=== PATIENT | female | born 1965 | race Two or more races ===

== ENCOUNTER 2020-09-24 08:38 | Emergency (ER) | payer OTHER, SELFPAY ==
[2020-09-24 08:57] VITALS: BP 149/74; PULSE 68; RESP 16; TEMP 36.6; O2SAT 96; BMI 38.7
--- NOTE | 2020-09-24 09:20 | CT_ITS ---
EXAMINATION: CT HEAD WITHOUT CONTRAST CLINICAL INFORMATION: Dizziness, nausea and vomiting, headache and neck pain COMPARISON: Previous head CT and brain MRI August 2015 TECHNIQUE: Contiguous axial imaging was performed from the skull base to vertex without intravenous administration of contrast. This CT examination was performed using dose optimization techniques as appropriate, variously including the following: *Automated exposure control *Adjustment of mA and/or kV according to patient size (this includes techniques or standardized protocols for targeted exams where dose is matched to indication/reason for exam; i.e. extremities or head) *Use of iterative reconstruction technique DLP: 606 mGy-cm FINDINGS: There is no evidence of acute intracranial hemorrhage or territorial infarction. No abnormal mass effect or midline shift is seen. Morillo to white matter differentiation is well preserved. No extra-axial fluid collections are identified. The ventricles are normal in size. There is no abnormal attenuation within the brain parenchyma. The osseous structures and soft tissues are normal. The mastoid air cells and visualized portions of the paranasal sinuses are well aerated. CT/CT head/brain wo con IMPRESSION: Unremarkable exam.
--- NOTE | 2020-09-24 09:20 | XR_ITS ---
EXAMINATION: XR CHEST CLINICAL INFORMATION: Dizziness, nausea and vomiting, headache and neck pain COMPARISON: None TECHNIQUE: 2 views of the chest were obtained. FINDINGS: The cardiac and mediastinal contours are normal. The lungs are clear. There is no pleural effusion or pneumothorax. There are degenerative changes of the spine. XR/XR chest 2V IMPRESSION: No evidence for acute disease in the chest.
--- NOTE | 2020-09-24 09:20 | ECG_ITS ---
Test Reason : HEADACHE Blood Pressure : / mmHG Vent. Rate : 059 BPM Atrial Rate : 059 BPM P-R Int : 150 ms QRS Dur : 084 ms QT Int : 426 ms P-R-T Axes : 039 011 046 degrees QTc Int : 421 ms Sinus bradycardia Otherwise normal ECG When compared with ECG of 24-SEP-2017 07:47, No significant change was found Referred By: Pattie Monge Electronically Signed By:RODRI AGUILAR MD
--- NOTE | 2020-09-24 09:29 | ED.HA ---
HPI - Headache General Chief Complaint: General Medical Stated Complaint: headache & neck pain, vomiting Time Seen by Provider: 09/24/20 08:58 Source: patient Mode of arrival: ambulatory Limitations: no limitations History of Present Illness HPI Narrative: 54yoF c No Sig PMHx presenting to the ED c c/o of a headache pressure sensation to right/top side of her head since Tuesday Worse today. With associated dizziness every time she changes position, nausea/vomiting and neck pain. Patient reports it is worse with light, noise and everything. Patient reports nothing improves the pain. Patient reports she has taken [id number] Motrin and no symptomatic relief. Patient reports she had a migraine headache approximately 2 years ago with associated nausea/vomiting although today the headache is worse not similar when she had that headache 2 years ago. Patient reports her niece and another family member told her that on Tuesday she called them and left them weird voice mail saying that something was wrong and that they had to come over right away and they do not live close. She reports she does not recall this. Patient denies recent head injury, known CO exposure, tick bite, recent spinal/epidural procedure, new medication or recent URI. Denies any other associated symptoms complaints or concerns at this time. Related Data Previous Rx's Medication Instructions Recorded meloxicam 15 mg tablet 15 mg PO DAILY #30 tab 09/18/20 [id number]-satffwltgfxom-cxzf 1 cap PO Q8H PRN #10 cap 09/24/20 [Fioricet] diphenhydramine HCl [Benadryl 25 mg PO Q6H PRN #10 tab 09/24/20 Allergy] levofloxacin 750 mg PO DAILY 5 Days #5 tab 09/24/20 metoclopramide HCl [Reglan] 10 mg PO Q6H PRN #10 tab 09/24/20 Allergies Allergy/AdvReac Type Severity Reaction Status Date / Time Penicillins [PENICILLINS] Allergy Unknown UNKNOWN Verified 09/24/20 09:02 Review of Systems Review of Systems: Constitutional : No Fever, No Chills, No Night Sweats, No Fatigue, No Malaise ENT/Mouth : No Hearing loss, No Ear Pain, No Nasal Congestion, No Sinus Pain, No Hoarseness, No sore throat, No Rhinorrhea Eyes: No Eye Pain, No Swelling, No Redness, No Foreign Body, No Discharge, No Vision Changes Cardiovascular : No Chest Pain, No SOB, No Dyspnea on Exertion, No Orthopnea, No Edema, No Palpitations Respiratory : No Cough, No Sputum, No Wheezing, No Smoke Exposure, No Dyspnea Gastrointestinal : + Nausea, + Vomiting, No Diarrhea, No Constipation, No abdominal Pain, No Hematochezia, No Melena Genitourinary : no irregular bleeding, No Dysuria, No Urinary Frequency, No Hematuria, No Urinary Incontinence, No Urgency, No Flank Pain, No Urinary Flow Changes, No Hesitancy Musculoskeletal : No joint pain, No Myalgias, No Joint Swelling Skin : No Skin Lesions, No rash Neuro : + Dizziness, + Headache, No Weakness, No Numbness, No Paresthesias, No Loss of Consciousness, no syncope, Psych : No Anxiety/Panic, No Depression, No SI/HI/AH/VH, No Social Issues, Heme/Lymph: No Bruising, No Bleeding,No Lymphadenopathy Endocrine : No Polyuria, No Polydipsia, No Temperature Intolerance Denies trauma. Yes all other systems are reviewed and are negative [facility] Social History Social History Advance Directives: No Advance Directives Information Provided: Yes Physical Exam Vital Signs: Vital Signs: Vital Signs Temp Pulse Resp BP Pulse Ox 09/24/20 11:38 62 14 134/70 99 09/24/20 08:57 97.9 F 68 16 149/74 H 96 Body Mass Index 38.7 Vital signs have been reviewed as normal and appeared to be correct. Blood pressure normal. Heart rate normal. Respiration rate normal. Temperature normal. Oxygen saturation normal. Appearance: Alert. Oriented X3. No acute distress. Head: Normal external exam. Normocephalic. Atraumatic. Able to rotate head bilaterally. Eyes: PERRLA. EOMI. No nystagmus noted. Conjunctiva and sclera normal. Eyelids normal. Corneal reflex normal. ENT: EAC normal. TM's Normal. Hearing normal. Pharynx normal. Uvula midline. tongue midline. Moist mucous membranes. No trismus noted. No drooling noted. No muffled voice noted. Neck: Normal inspection. Neck supple. FROM. No adenopathy. Thyroid Normal. No meningeal signs. No neck mass noted.TTP of b/l paracervical musculature. No midcervical tenderness step-offs or deformities noted. Patient neuro intact bilaterally in this and all 4 extremities. Reflexes intact bilateral and this in all 4 extremities. No rashes/lesions/induration/fluctuance or signs of infection noted. Patient has a normal steady gait. CVS: Normal heart rate and rhythm. Heart sound normal. No murmurs noted. Pulses normal throughout. Respiratory: No respiratory distress. Painless inspiration. Breath sounds normal. No wheezes/rales/rhonchi noted. Chest nontender. No accessory muscle usage noted or decreased air movement noted. Abdomen: Soft and nontender. Bowel sounds normal in all 4 quadrants. No distention noted. No organomegaly noted. No visible injury noted. Back: No CVA tenderness. Full range of motion noted. Skin: Skin warm and dry. Normal skin color. Normal skin turgor. No rashes/lesions/lacerations noted. Extremities: No lower extremity edema. Extremities exhibit normal range of motion. Extremities nontender. Able to shrug shoulders bilaterally and keep up against resistance. Neuro: Oriented X 3. No motor deficit. No sensory deficit. Reflexes normal. Moving all extremities. No focal motor deficits. Cranial nerves II-XI intact bilaterally. Facial strength normal. Normal cognition. Speech normal. Gait normal. Strength 5/5 throughout. No pronator drift. No tremor noted. No fasciculations noted. Muscle tone normal throughout. No asterixis noted. Gcfgga-yh-bpwo test normal. Heel to mckeon test normal. Tandem gait normal. Does not sway with eyes open. Romberg test negative. Rapid alternating movement upper extremity normal. Rapid alternating movement lower extremity normal. Hand drop from overhead-Mrs. face. No rigidity noted. NIHSS score 0. Course Course Course Narrative: 9:20AM 54yoF presenting to the ED c c/o headache to right/ytop side of head pressure sensation c associated dizziness, N/V. Worsened by everything. Relieved by nothing. Prior headache in past and reports today the headache is worse. -on exam patient is alert and oriented x3. No acute neuro deficits noted. Vital signs are stable within normal limits. - Concern for CVA vs Migraine headache. - Plan: Labs, CT scan of brain, EKG, CXR, orthostatic vitals. Provide symptomatic tx c IV fluids, 10 mg of decadron, 10 mg of reglan, 2 PO Fioricet and re-evaluate. Reevaluation(s) Reevaluation #1: Patient's labs are within normal limits. EKG sinus bradycardia no acute ischemic changes and similar when compared to prior. Chest x-ray within normal limits no acute processes noted. CT scan of brain within normal limits no acute processes noted. UA patient appears to have a UTI therefore will DC home with antibiotics. Patient reports her headache is almost completely resolved at this time after the medications given. Will DC home with symptomatic treatment for her headache as well. Along with instructions follow-up with primary care provider. Patient understands agrees the plan. Time: 12:35 MDM - Headache MDM Narrative Medical decision making narrative: gradual onset ANDRE with photo/phonophobia, nausea. Mot likely Migraine headache althought pt reports not similar to prior migraine headache 2 years ago. SAH: unlikely given gradual onset. Intracranial bleed: unlikely given neg trauma, neg anticoagulation Meningitis: unlikely given pt afebrile, neg stiff neck, no immune compromise. Exam without signs of meningismus Temporal arteritis: Unlikely given Neg jaw claudication, no temporal tenderness or nodularity on exam. Cerebral venous thrombosis: unlikely given no h/o hypercoaguable state, no chronic head/neck infection. Medical Records Attestation: I reviewed the patient's medical records. Lab Data Attestation: I reviewed the patient's lab results. Result diagrams: 09/24/20 09:34 09/24/20 09:34 Labs: Lab Results 09/24/20 09/24/20 09/24/20 Range/Units 09:34 09:34 09:34 WBC 3.3 L (4.8-10.8) X10*3/uL RBC 4.83 (4.20-5.50) X10*6/uL Hgb 14.8 (12.0-16.0) g/dl Hct 45.3 (37-47) % MCV 93.8 (80-98) fL MCH 30.6 (27.0-33.0) pg MCHC 32.7 (31.0-35.0) g/dl RDW 12.4 (11.0-16.0) % Plt Count 201 (160-400) X10*3/uL MPV 10.9 (9.4-12.3) fL Immature Gran % (Auto) 0.9 H (0.0-0.4) % Neut % (Auto) 64.2 (45-73) % Lymph % (Auto) 23.9 (20-40) % Preble % (Auto) 10.4 (2-11) % Eos % (Auto) 0.3 (0-4) % Baso % (Auto) 0.3 (0-2) % Lymph # (Auto) 0.8 L (1.2-4.9) X10*3/uL Preble # (Auto) 0.3 (0.1-1.2) X10*3/uL Eos # (Auto) 0.0 (0.0-0.4) X10*3/uL Baso # (Auto) 0.0 (0.0-0.2) X10*3/uL Abs Immat Gran (auto) 0.03 (0.00-0.03) X10*3/uL Absolute Neuts (auto) 2.1 (2.0-8.3) X10*3/uL Absolute Nucleated RBC 0.000 (0.0-0.012) X10*3/uL Nucleated RBC % (auto) 0.0 (0.0-0.2) /100WBC PT 12.4 (10.8-13.0) SEC INR 1.0 (0.9-1.1) Sodium 139 (135-145) mmol/L Potassium 3.6 (3.3-5.1) mmol/l Chloride 103 (96-108) mmol/L Carbon Dioxide 27 (22-29) mmol/L Anion Gap 13 (12-20) BUN 8 L (9-16) mg/dL Creatinine 0.62 (0.5-1.4) mg/dL Estim Creat Clear Calc 101.1 Estimated GFR > 60 Random Glucose 117 H (60-115) mg/dL Calcium 8.1 L (8.4-10.2) mg/dL Magnesium 2.0 (1.6-2.6) mg/dL Total Bilirubin 0.5 (0.0-1.0) mg/dL Direct Bilirubin 0.3 (0.0-0.5) mg/dL AST 37 H (5-31) U/L ALT 36 H (0-31) U/L Alkaline Phosphatase 94 (39-117) U/L Troponin I High Sens (<3.5-17.0) ng/L C-Reactive Protein 0.17 (< or = 0.50) mg/dL Total Protein 6.8 (6.5-8.0) g/dL Albumin 4.0 (3.5-5.0) g/dL Urine Color Urine Appearance Urine pH (5.0-8.0) Ur Specific [place] (1.005-1.025) Urine Protein (NEG-TRACE) MG/DL Urine Glucose (UA) (NEG) MG/DL Urine Ketones (NEG) MG/DL Urine Blood (NEG) Urine Nitrite (NEG) Ur Leukocyte Esterase (NEG) Urine RBC (0) /HPF Urine WBC (0-4) /HPF Ur Squamous Epith Cells /LPF Urine Bacteria /LPF Ethyl Alcohol mg/dL 09/24/20 09/24/20 09/24/20 Range/Units 09:34 09:49 11:07 WBC (4.8-10.8) X10*3/uL RBC (4.20-5.50) X10*6/uL Hgb (12.0-16.0) g/dl Hct (37-47) % MCV (80-98) fL MCH (27.0-33.0) pg MCHC (31.0-35.0) g/dl RDW (11.0-16.0) % Plt Count (160-400) X10*3/uL MPV (9.4-12.3) fL Immature Gran % (Auto) (0.0-0.4) % Neut % (Auto) (45-73) % Lymph % (Auto) (20-40) % Preble % (Auto) (2-11) % Eos % (Auto) (0-4) % Baso % (Auto) (0-2) % Lymph # (Auto) (1.2-4.9) X10*3/uL Preble # (Auto) (0.1-1.2) X10*3/uL Eos # (Auto) (0.0-0.4) X10*3/uL Baso # (Auto) (0.0-0.2) X10*3/uL Abs Immat Gran (auto) (0.00-0.03) X10*3/uL Absolute Neuts (auto) (2.0-8.3) X10*3/uL Absolute Nucleated RBC (0.0-0.012) X10*3/uL Nucleated RBC % (auto) (0.0-0.2) /100WBC PT (10.8-13.0) SEC INR (0.9-1.1) Sodium (135-145) mmol/L Potassium (3.3-5.1) mmol/l Chloride (96-108) mmol/L Carbon Dioxide (22-29) mmol/L Anion Gap (12-20) BUN (9-16) mg/dL Creatinine (0.5-1.4) mg/dL Estim Creat Clear Calc Estimated GFR Random Glucose (60-115) mg/dL Calcium (8.4-10.2) mg/dL Magnesium (1.6-2.6) mg/dL Total Bilirubin (0.0-1.0) mg/dL Direct Bilirubin (0.0-0.5) mg/dL AST (5-31) U/L ALT (0-31) U/L Alkaline Phosphatase (39-117) U/L Troponin I High Sens < 3.5 (<3.5-17.0) ng/L C-Reactive Protein (< or = 0.50) mg/dL Total Protein (6.5-8.0) g/dL Albumin (3.5-5.0) g/dL Urine Color YELLOW Urine Appearance HAZY Urine pH 6.0 (5.0-8.0) Ur Specific [place] <= 1.005 (1.005-1.025) Urine Protein NEG (NEG-TRACE) MG/DL Urine Glucose (UA) NEG (NEG) MG/DL Urine Ketones NEG (NEG) MG/DL Urine Blood NEG (NEG) Urine Nitrite NEG (NEG) Ur Leukocyte Esterase TRACE H (NEG) Urine RBC 1-4 (0) /HPF Urine WBC 15-29 H (0-4) /HPF Ur Squamous Epith Cells 2+ /LPF Urine Bacteria NONE /LPF Ethyl Alcohol < 10 mg/dL Imaging Data Chest x-ray: Attestation: I personally reviewed and interpreted this imaging study as follows: Radiologist's impression: FINDINGS: The cardiac and mediastinal contours are normal. The lungs are clear. There is no pleural effusion or pneumothorax. There are degenerative changes of the spine. XR/XR chest 2V IMPRESSION: No evidence for acute disease in the chest. CT scan - head: Attestation: I personally reviewed and interpreted this imaging study as follows: Radiologist's impression: FINDINGS: There is no evidence of acute intracranial hemorrhage or territorial infarction. No abnormal mass effect or midline shift is seen. Morillo to white matter differentiation is well preserved. No extra-axial fluid collections are identified. The ventricles are normal in size. There is no abnormal attenuation within the brain parenchyma. The osseous structures and soft tissues are normal. The mastoid air cells and visualized portions of the paranasal sinuses are well aerated. CT/CT head/brain wo con IMPRESSION: Unremarkable exam. ECG Data Attestation: I personally reviewed and interpreted this ECG as follows: ECG interpretation date: 09/24/20 ECG interpretation time: 09:34 Interpretation: Sinus bradycardia with a ventricular rate of 59 with normal ME interval normal QRS. Normal QT/QTC duration. No acute ischemic changes. Similar compared to prior 09/24/2017. Critical Care Time Critical Care Time Critical Care Time: Yes Total Critical Care Time: 60 Attestation: I personally attest to this time spent taking care of the patient Discharge Plan Discharge Clinical Impression: Migraine, Neck muscle spasm, UTI (urinary tract infection) Patient Disposition: Home, Self-Care Instructions: Urinary Tract Infection in Women (ED), Migraine Headache (ED) Prescriptions: New metoclopramide HCl [Reglan] 10 mg tablet 10 mg PO Q6H PRN (Reason: nausea and vomiting) Qty: 10 RF: 0 [id number]-cpruuwrtrfqke-tzcu [Fioricet] 50-300-40 mg capsule 1 cap PO Q8H PRN (Reason: pain) Qty: 10 RF: 0 diphenhydramine HCl [Benadryl Allergy] 25 mg tablet 25 mg PO Q6H PRN (Reason: nausea and vomiting) Qty: 10 RF: 0 levofloxacin 750 mg tablet 750 mg PO DAILY 5 Days Qty: 5 RF: 0 No Action meloxicam 15 mg tablet 15 mg PO DAILY Qty: 30 RF: 1 Referrals: Olga Mckeon MD [Primary Care Provider] - 2 days Print Language: Citizen Of [place]
[2020-09-24] MEDS: 0.9 % Sodium Chloride 1,000 ML 999 ML IVCONT (09:34)
[2020-09-24] MEDS: diphenhydrAMINE HCL 50 MG/ML VIAL IVPUSH (09:41)
[2020-09-24] MEDS: dexAMETHasone sod phosphate 4 MG/ML VIAL 10 MG IVPUSH (09:43)
[2020-09-24] MEDS: Metoclopramide HCl 10 MG/2 ML VIAL IVPUSH (09:51)
[2020-09-24 09:59] LABS: MANUAL DIFF FLAG NO
[2020-09-24 10:01] LABS: Basophils Percent Auto 0.3 % (0-2); Eosinophils Percent Auto 0.3 % (0-4); Hematocrit 45.3 % (37-47); Hemoglobin 14.8 g/dl (12.0-16.0); Imm Gran Abs Auto 0.03 X10*3/uL (0.00-0.03); Imm Gran Pct Auto 0.9 % (0.0-0.4); Lymphocytes Absolute Auto 0.8 X10*3/uL (1.2-4.9); Lymphocytes Percent Auto 23.9 % (20-40); Mean Corpuscular HGB Conc 32.7 g/dl (31.0-35.0); Mean Corpuscular Hemoglobin 30.6 pg (27.0-33.0); Mean Corpuscular Volume 93.8 fL (80-98); Mean Platelet Volume 10.9 fL (9.4-12.3); Monocytes Absolute Auto 0.3 X10*3/uL (0.1-1.2); Monocytes Percent Auto 10.4 % (2-11); Neutrophils Absolute Auto 2.1 X10*3/uL (2.0-8.3); Neutrophils Percent Auto 64.2 % (45-73); Platelet Count 201 X10*3/uL (160-400); Red Blood Count 4.83 X10*6/uL (4.20-5.50); Red Cell Distribution Width 12.4 % (11.0-16.0); White Blood Count 3.3 X10*3/uL (4.8-10.8)
[2020-09-24 10:07] LABS: Prothrombin Time 12.4 SEC (10.8-13.0)
[2020-09-24 10:26] LABS: Ethanol < 10 mg/dL
[2020-09-24 10:31] LABS: Alanine Aminotransferase 36 U/L (0-31); Alkaline Phosphatase 94 U/L (39-117); Anion Gap 13 (12-20); Aspartate Amino Transferase 37 U/L (5-31); Bilirubin Direct 0.3 mg/dL (0.0-0.5); Bilirubin Total 0.5 mg/dL (0.0-1.0); Blood Urea Nitrogen 8 mg/dL (9-16); Calcium 8.1 mg/dL (8.4-10.2); Carbon Dioxide 27 mmol/L (22-29); Chloride 103 mmol/L (96-108); Creatinine Clr Calc Pharmacy 101.1; Estimated Glomerular Filt Rate > 60; Glucose Random 117 mg/dL (60-115); Potassium 3.6 mmol/l (3.3-5.1); Sodium 139 mmol/L (135-145); Total Protein 6.8 g/dL (6.5-8.0)
[2020-09-24 10:34] LABS: Troponin-I High Sensitivity < 3.5 ng/L (<3.5-17.0)
[2020-09-24 11:16] LABS: C Reactive Protein 0.17 mg/dL (< or = 0.50)
[2020-09-24 11:38] VITALS: BP 134/70; PULSE 62; RESP 14; O2SAT 99
[2020-09-24 11:50] LABS: Glucose Urine UA NEG (NEG); Leukocyte Esterase Urine TRACE (NEG); Nitrite Urine NEG (NEG); Specific Gravity - Urine <= 1.005 (1.005-1.025); Urine Blood NEG (NEG); Urine Ketones NEG (NEG); Urine Protein NEG (NEG-TRACE)
[2020-09-24 11:55] LABS: Appearance Urine HAZY; Color Urine YELLOW
[2020-09-24 12:08] LABS: Squamous Epithelial Cell Urine 2+ /LPF
[2020-09-24 12:40] LABS: Erythrocyte Sedimentation Rate 11 MM/HR (0-20)
== END 2020-09-24 12:53 | disposition home or self-care (01) ==
PROVIDERS: Physician Assistant Medical; Emergency Provider Emergency Medicine; PCP Internal Medicine
DX: G43.909 Migraine, unspecified, not intractable, without status migrainosus (principal); M54.2 Cervicalgia; N39.0 Urinary tract infection, site not specified; M62.838 Other muscle spasm; Z79.899 Other long term (current) drug therapy
CPT/HCPCS: 36415; 70450; 71046; 80048; 80076; 80320; 81001; 83735; 84484; 85025; 85610; 85652; 86140; 87086; 93005; 96361; 96374; 96375; 99284; 99291; J1100; J1200; J2765

== ENCOUNTER 2021-02-04 14:36 | Outpatient (REF) | payer OTHER, SELFPAY | END 2021-02-04 14:37 | disposition home or self-care (01) | LOC: HO.LAB 14:36 | PROVIDERS: Visit Provider Internal Medicine | DX: Z20.822 Contact with and (suspected) exposure to COVID-19 (principal) | CPT/HCPCS: 36415; C9803; U0003 ==

== ENCOUNTER 2021-08-27 14:01 | Outpatient (REF) | payer OTHER, SELFPAY | END 2021-08-27 14:02 | disposition home or self-care (01) | LOC: HO.LAB 14:01 | PROVIDERS: PCP Internal Medicine; Visit Provider Internal Medicine | DX: Z20.822 Contact with and (suspected) exposure to COVID-19 (principal) | CPT/HCPCS: C9803; U0003; U0005 ==

== ENCOUNTER 2021-09-15 16:02 | Outpatient (REF) | payer OTHER, SELFPAY ==
--- NOTE | ~2021-09-15 | US_ITS ---
EXAMINATION: US VENOUS ULTRASOUND WITH DOPPLER LOWER EXTREMITY, LEFT CLINICAL INFORMATION: Left lower extremity pain. Assess for occult DVT. COMPARISON: None TECHNIQUE: Ultrasound of the deep veins is performed from the hip to the calf with compression sonography and color and pulse Doppler assessment. Spectral analysis with color-flow imaging is performed. FINDINGS: There is normal venous compression and respiratory variation and augmented flow. The visualized common femoral vein, superficial femoral vein, profunda femoral vein, popliteal vein, and the trifurcation region shows no evidence of deep venous thrombosis. There is a small popliteal fossa cyst measuring only 0.9 x 1.4 x 4.0 cm. Preliminary report provided to Dr. Rubio by chief analytics officer at 1620 hours. US/US venous duplex LE LT IMPRESSION: 1. No DVT demonstrated in the left lower extremity. 2. Small popliteal fossa cyst approximately 1 x 1.5 x 4.0 cm.
== END 2021-09-15 16:03 | disposition home or self-care (01) ==
LOC: HO.HMGCX 16:02
PROVIDERS: PCP Internal Medicine; Visit Provider Internal Medicine
DX: I82.409 Acute embolism and thrombosis of unspecified deep veins of unspecified lower extremity (principal); M79.605 Pain in left leg
CPT/HCPCS: 93971

== ENCOUNTER 2021-11-19 14:08 | Outpatient (REF) | payer OTHER, SELFPAY | END 2021-11-19 14:09 | disposition home or self-care (01) | LOC: HO.HMGCLDS 14:08 | PROVIDERS: Visit Provider Internal Medicine | DX: Z20.822 Contact with and (suspected) exposure to COVID-19 (principal) | CPT/HCPCS: C9803; U0003; U0005 ==

== ENCOUNTER 2021-12-14 13:31 | Outpatient (REF) | payer OTHER, SELFPAY ==
--- NOTE | ~2021-12-14 | XR_ITS ---
EXAMINATION: XR KNEE, LEFT CLINICAL INFORMATION: Unilateral primary osteoarthritis. COMPARISON: None TECHNIQUE: Four views of the left knee. FINDINGS: There is moderate loss of medial and patellofemoral compartment joint space with periarticular spurring. No loose bodies or bony erosive changes seen. No abnormal joint effusion. No fracture or dislocation. XR/XR knee LT 4V IMPRESSION: Mild to moderate degenerative changes medial and patellofemoral compartment without visible acute fracture, dislocation or subluxation seen.
== END 2021-12-14 13:32 | disposition home or self-care (01) ==
LOC: HO.HMGCX 13:31
PROVIDERS: PCP Internal Medicine; Visit Provider Internal Medicine
DX: M17.12 Unilateral primary osteoarthritis, left knee (principal)
CPT/HCPCS: 73564

== ENCOUNTER 2022-01-18 11:53 | Outpatient (REF) | payer OTHER, SELFPAY ==
--- NOTE | ~2022-01-18 | XR_ITS ---
EXAMINATION: XR KNEE AP STANDING CLINICAL INFORMATION: Knee pain COMPARISON: None TECHNIQUE: AP bilateral standing view of the knees was obtained. FINDINGS: There is significant reduction in medial compartment left knee with moderate periapical spurring. There is mild reduction in the medial and lateral compartment right knee and lateral compartment left knee. No loose bodies or bony erosive changes seen. The soft tissues are normal. XR/XR knee standing BI IMPRESSION: Severe degenerative changes with moderate periarticular spurring medial compartment left knee. Mild degenerative changes left and right knee as described above
== END 2022-01-18 11:54 | disposition home or self-care (01) ==
LOC: HO.HOSX 11:53
PROVIDERS: Visit Provider Orthopaedic Surgery
DX: M17.12 Unilateral primary osteoarthritis, left knee (principal)
CPT/HCPCS: 20610; 73565; 99202; J1100

== ENCOUNTER → 2022-04-22 13:38 | Outpatient (BNVA) | payer OTHER, SELFPAY | PROVIDERS: PCP Internal Medicine; Visit Provider Orthopaedic Surgery | DX: M17.12 Unilateral primary osteoarthritis, left knee (principal); M71.20 Synovial cyst of popliteal space [Baker], unspecified knee | CPT/HCPCS: 20610; 99212; J1100 ==

== ENCOUNTER 2022-05-15 07:25 | Outpatient (REF) | payer OTHER, SELFPAY ==
[2022-05-15 11:34] LABS: Hematocrit 43.7 % (37.0-47.0); Hemoglobin 13.9 g/dl (12.0-16.0); Mean Corpuscular HGB Conc 31.8 g/dl (31.0-35.0); Mean Corpuscular Hemoglobin 29.9 pg (27.0-33.0); Mean Platelet Volume 11.4 fL (9.4-12.3); Platelet Count 221 X10*3/uL (160-400); Red Blood Count 4.65 X10*6/uL (4.20-5.50); Red Cell Distribution Width 13.1 % (11.0-16.0); White Blood Count 3.8 X10*3/uL (4.8-10.8)
[2022-05-15 11:47] LABS: Alanine Aminotransferase 20 U/L (0-31); Albumin Level 4.1 g/dL (3.5-5.0); Alkaline Phosphatase 90 U/L (39-117); Anion Gap 11 (12-20); Aspartate Amino Transferase 27 U/L (5-31); Bilirubin Total 0.7 mg/dL (0.0-1.0); Blood Urea Nitrogen 16 mg/dL (9-16); Calcium 8.8 mg/dL (8.4-10.2); Carbon Dioxide 25 mmol/L (22-29); Chloride 108 mmol/L (96-108); Cholesterol 175 mg/dL; Estimated Glomerular Filt Rate > 60; Glucose Fasting 101 mg/dL (60-99); HDL Cholesterol 70 mg/dL; LDL Cholesterol Calculated 93 mg/dl; Sodium 140 mmol/L (135-145); Total Protein 6.8 g/dL (6.5-8.0); Triglycerides 63 mg/dL
[2022-05-15 12:12] LABS: TSH reflex Free T4 1.77 uIU/mL (0.32-4.0)
== END 2022-05-15 07:26 | disposition home or self-care (01) ==
LOC: HO.HMGCLDS 07:25
PROVIDERS: PCP Internal Medicine; Visit Provider Internal Medicine
DX: Z00.00 Encounter for general adult medical examination without abnormal findings (principal); M17.10 Unilateral primary osteoarthritis, unspecified knee
CPT/HCPCS: 36415; 80053; 80061; 84443; 85027

== ENCOUNTER 2022-07-01 08:14 | Outpatient (REF) | payer OTHER, SELFPAY ==
--- NOTE | ~2022-07-01 | US_ITS ---
EXAMINATION: US ABDOMEN COMPLETE CLINICAL INFORMATION: Right upper quadrant pain. Rule out cholelithiasis. COMPARISON: None TECHNIQUE: Real-time imaging of the abdominal viscera. FINDINGS: PANCREAS: Normal. The visualized pancreatic head and body are normal in appearance. The remainder of the pancreas is obscured from visualization by the overlying bowel gas. ABDOMINAL AORTA: The proximal, mid, and distal segments are normal in caliber. INFERIOR VENA CAVA: Visualized portions are normal. LIVER: Normal. The liver is normal in size. The liver contour is normal. Parenchymal echogenicity is normal. No focal hepatic lesion. There is no intrahepatic biliary duct dilatation seen. GALLBLADDER: Normal. The gallbladder is physiologically distended without evidence of stones, sludge, polyps, wall thickening or pericholecystic fluid. COMMON BILE DUCT: Normal in caliber measuring 0.5 cm in diameter. RIGHT KIDNEY: Normal. No hydronephrosis. No renal calculi or focal parenchymal lesions. The kidney measures 10.7 cm in maximum dimension. LEFT KIDNEY: Numerous simple parapelvic cysts are seen, the largest at the interpolar aspect measuring 2.2 cm and 3.8 cm in maximal diameter. No hydronephrosis or renal calculi. The kidney measures 12.2 cm in maximum dimension. SPLEEN: Normal. The spleen measures 8.4 cm in maximum dimension. FREE FLUID: None. US/US abdomen complete IMPRESSION: 1. Multiple benign, simple parapelvic cysts are seen, as detailed. No ultrasound follow-up is recommended. 2. Technically limited ultrasound examination of the pancreatic tail.
== END 2022-07-01 08:15 | disposition home or self-care (01) ==
LOC: HO.HMGCX 08:14
PROVIDERS: PCP Internal Medicine; Visit Provider Internal Medicine
DX: R10.11 Right upper quadrant pain (principal)
CPT/HCPCS: 76700

== ENCOUNTER 2022-09-03 14:41 | Outpatient (REF) | payer OTHER, SELFPAY ==
--- NOTE | ~2022-09-03 | XR_ITS ---
EXAMINATION: XR ANKLE, LEFT CLINICAL INFORMATION: Left ankle pain and swelling. COMPARISON: None TECHNIQUE: AP, lateral, and mortise views of the left ankle. FINDINGS: The ankle joint and mortise are intact. There is no acute fracture or dislocation. The tarsal bones are normally aligned. Moderate plantar and small retrocalcaneal spurs are noted. Mild to moderate soft tissue swelling. XR/XR ankle LT min 3V IMPRESSION: 1. Mild to moderate soft tissue swelling without acute underlying osseous abnormality. 2. Degenerative calcaneal spurs as detailed above.
== END 2022-09-03 14:42 | disposition home or self-care (01) ==
LOC: HO.HMGCX 14:41
PROVIDERS: PCP Internal Medicine
DX: M25.572 Pain in left ankle and joints of left foot (principal)
CPT/HCPCS: 73610

== ENCOUNTER 2022-10-05 | Outpatient (REF) | payer OTHER, SELFPAY ==
--- NOTE | ~2022-10-05 | XR_ITS ---
EXAMINATION: XR ANKLE, LEFT XR FOOT, LEFT CLINICAL INFORMATION: Pain ankle and foot joints. COMPARISON: Radiographs left ankle 09/03/2022, left foot 07/15/2020 TECHNIQUE: Left ankle is imaged in 3 views. The left foot is imaged in 3 additional views. There are a total of 6 views. FINDINGS: The malleoli are intact and the ankle mortise is symmetric. No visible ankle capsular effusion. The talar dome shows no visible osteochondral lesion. The subtalar joint is unremarkable. The retrocalcaneal recess is preserved. Again, there are bulky posterior and plantar calcaneal spurs. The midfoot and forefoot show no fracture or destructive process. No erosive arthropathy. There is mild interphalangeal joint narrowing several digits. XR/XR ankle LT min 3V IMPRESSION: 1. Bulky posterior and plantar calcaneal spurs. 2. No fracture, destructive process, or erosive arthropathy.
--- NOTE | ~2022-10-05 | XR_ITS ---
EXAMINATION: XR ANKLE, LEFT XR FOOT, LEFT CLINICAL INFORMATION: Pain ankle and foot joints. COMPARISON: Radiographs left ankle 09/03/2022, left foot 07/15/2020 TECHNIQUE: Left ankle is imaged in 3 views. The left foot is imaged in 3 additional views. There are a total of 6 views. FINDINGS: The malleoli are intact and the ankle mortise is symmetric. No visible ankle capsular effusion. The talar dome shows no visible osteochondral lesion. The subtalar joint is unremarkable. The retrocalcaneal recess is preserved. Again, there are bulky posterior and plantar calcaneal spurs. The midfoot and forefoot show no fracture or destructive process. No erosive arthropathy. There is mild interphalangeal joint narrowing several digits. XR/XR foot LT min 3V IMPRESSION: 1. Bulky posterior and plantar calcaneal spurs. 2. No fracture, destructive process, or erosive arthropathy.
== END 2022-10-05 00:01 | disposition home or self-care (01) ==
LOC: HO.HOSX
PROVIDERS: Visit Provider Physician Assistant
DX: M79.672 Pain in left foot (principal); R22.9 Localized swelling, mass and lump, unspecified
CPT/HCPCS: 73610; 73630; 99202

== ENCOUNTER 2022-10-25 12:26 | Outpatient (REF) | payer OTHER, SELFPAY ==
[2022-10-25 13:59] LABS: MANUAL DIFF FLAG NO
[2022-10-25 14:08] LABS: Basophils Percent Auto 0.6 % (0-2); Eosinophils Absolute Auto 0.1 X10*3/uL (0.0-0.4); Eosinophils Percent Auto 1.2 % (0-4); Hematocrit 44.9 % (37.0-47.0); Hemoglobin 14.5 g/dl (12.0-16.0); Imm Gran Abs Auto 0.02 X10*3/uL (0.00-0.03); Imm Gran Pct Auto 0.4 % (0.0-0.4); Lymphocytes Absolute Auto 1.6 X10*3/uL (1.2-4.9); Lymphocytes Percent Auto 33.1 % (20-40); Mean Corpuscular HGB Conc 32.3 g/dl (31.0-35.0); Mean Corpuscular Hemoglobin 30.3 pg (27.0-33.0); Mean Corpuscular Volume 93.9 fL (80.0-98.0); Monocytes Absolute Auto 0.4 X10*3/uL (0.1-1.2); Monocytes Percent Auto 8.1 % (2-11); Neutrophils Absolute Auto 2.8 x10*3/uL (2.0-8.3); Neutrophils Percent Auto 56.6 % (45-73); Platelet Count 235 X10*3/uL (160-400); Red Blood Count 4.78 X10*6/uL (4.20-5.50); Red Cell Distribution Width 13.1 % (11.0-16.0)
[2022-10-25 15:03] LABS: Alanine Aminotransferase 21 U/L (0-31); Albumin Level 4.2 g/dL (3.5-5.0); Alkaline Phosphatase 96 U/L (39-117); Anion Gap 10 (12-20); Aspartate Amino Transferase 25 U/L (5-31); Bilirubin Total 0.3 mg/dL (0.0-1.0); Blood Urea Nitrogen 16 mg/dL (9-16); Calcium 9.2 mg/dL (8.4-10.2); Carbon Dioxide 29 mmol/L (22-29); Chloride 108 mmol/L (96-108); Estimated Glomerular Filt Rate > 60; Glucose Random 90 mg/dL (60-115); Potassium 4.2 mmol/L (3.3-5.1); Sodium 143 mmol/L (135-145); TSH reflex Free T4 1.54 uIU/mL (0.32-4.0); Total Protein 6.9 g/dL (6.5-8.0)
== END 2022-10-25 12:27 | disposition home or self-care (01) ==
LOC: HO.HMGCLDS 12:26
PROVIDERS: PCP Internal Medicine; Visit Provider Internal Medicine
DX: R19.7 Diarrhea, unspecified (principal); R42 Dizziness and giddiness
CPT/HCPCS: 36415; 80053; 84443; 85025

== ENCOUNTER 2023-04-19 14:00 | Outpatient (RCR) | payer OTHER, SELFPAY ==
[2023-04-15 13:52] VITALS: BP 126/80
--- NOTE | 2023-04-15 14:46 | MHC.PT.EP ---
[facility] [place] Office [place] Office [place] Office [address] Toyin Jimenez [address] [phone] F: [phone] F: [phone] F: [phone] F: [phone] Physical Therapy Plan of Care Date of Evaluation: Date of Surgery: Diagnosis: dizziness and giddiness, vertigo Assessment: 57 y/o referred to PT with dizziness and giddiness. She has had on/off dizziness over the past year with last episode one month ago. Dizziness described as room-spinning, 'ball moving that lasts a few minutes which occurs with rolling in bed, bending, move head quickly. Examination shows normal oculomotor, (-) VBI, normal static balance, slightly impaired gait pattern (she will be having foor surgery and states her knees affect her walking), and (+) for BPPV. In Gabbie-Hallpike, nystagmus changed betweeen torsional upbeating and torsional downbeating, therefore she could have multiple canals involved. Treated R and L PC but did not assess horizontal canal today d/t pt tolerance. 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 Manual therapy to restore motion and function. Therapeutic exercise to improve strength and flexibility. Neuromuscular re-education for posture and balance. Therapeutic activities to return to functional activities of daily living. Electronically signed by: Aubree Coronel PT Please sign and return to therapist. Thank you for your referral.
--- NOTE | 2023-05-19 10:22 | MHC.PT.DC ---
[facility] [place] Office [place] Office [place] Office [address] Toyin Jimenez [address] [phone] F: [phone] F: [phone] F: [phone] F: [phone] Physical Therapy Discharge Report Diagnosis: dizziness and giddiness, vertigo Date of Surgery: Date of Evaluation: 04/15/23 Date of Discharge: 05/19/23 Treatments to Date: 2 Cancellations to Date: 0 No Shows to Date: 0 Discharge Status: Achieved Goals Improved Function Discharge Summary: On patient's last tx session a month ago she was negative in all 6 canals. She had not taken meclizine over the weekend except for the AM as she was going into work and was worried about looking down however did not have any issues. She was educated on taking meclizine as needed. She proceeded to cancel remaining visits as she was feeling well. Held chart open for 30 days and then DC'd. Electronically signed by: Monik Jones PT Please sign and return to therapist. Thank you for your referral.
== END 2023-05-19 10:22 | disposition home or self-care (01) ==
LOC: HO.PTCHIC 14:00
PROVIDERS: PCP Internal Medicine; Visit Provider Internal Medicine
DX: R42 Dizziness and giddiness (principal)
CPT/HCPCS: 95992; 97162

== ENCOUNTER 2023-07-08 12:42 | Outpatient (AMB) | payer OTHER, SELFPAY ==
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
[2023-07-08 13:18] VITALS: BP 128/82; PULSE 66; O2SAT 98; BMI 38.9
== END 2023-07-08 14:09 | disposition home or self-care (01) ==
PROVIDERS: PCP Internal Medicine; Visit Provider Internal Medicine
DX: M79.605 Pain in left leg (principal); Z00.00 Encounter for general adult medical examination without abnormal findings; R07.9 Chest pain, unspecified; E66.3 Overweight
CPT/HCPCS: 99214; 99396

== ENCOUNTER 2023-07-08 14:59 | Outpatient (REF) | payer OTHER, SELFPAY ==
--- NOTE | ~2023-07-08 | US_ITS ---
EXAMINATION: US VENOUS ULTRASOUND WITH DOPPLER LOWER EXTREMITY, LEFT CLINICAL INFORMATION: Left leg pain. COMPARISON: None available. TECHNIQUE: Ultrasound of the deep veins is performed from the hip to the calf with compression sonography and color and pulse Doppler assessment. Spectral analysis with color-flow imaging is performed. FINDINGS: There is normal venous compression and respiratory variation and augmented flow. The visualized common femoral vein, superficial femoral vein, profunda femoral vein, popliteal vein, and the trifurcation region shows no evidence of deep venous thrombosis. No left popliteal cyst. The subcutaneous soft tissues are unremarkable. US/US venous duplex LE LT IMPRESSION: No evidence for deep venous thrombosis in the visualized veins of the left lower extremity.
== END 2023-07-08 15:00 | disposition home or self-care (01) ==
LOC: HO.US 14:59
PROVIDERS: PCP Internal Medicine; Visit Provider Internal Medicine
DX: M79.605 Pain in left leg (principal)
CPT/HCPCS: 93971

== ENCOUNTER 2023-07-30 07:19 | Outpatient (REF) | payer OTHER, SELFPAY ==
[2023-07-30 11:29] LABS: MANUAL DIFF FLAG NO
[2023-07-30 11:42] LABS: Basophils Percent Auto 0.9 % (0-2); Eosinophils Absolute Auto 0.1 X10*3/uL (0.0-0.4); Eosinophils Percent Auto 2.7 % (0-4); Hematocrit 46.4 % (37.0-47.0); Hemoglobin 15.1 g/dl (12.0-16.0); Imm Gran Abs Auto 0.01 X10*3/uL (0.00-0.03); Imm Gran Pct Auto 0.3 % (0.0-0.4); Lymphocytes Absolute Auto 0.9 X10*3/uL (1.2-4.9); Lymphocytes Percent Auto 28.6 % (20-40); Mean Corpuscular HGB Conc 32.5 g/dl (31.0-35.0); Mean Corpuscular Hemoglobin 30.7 pg (27.0-33.0); Mean Corpuscular Volume 94.3 fL (80.0-98.0); Mean Platelet Volume 10.9 fL (9.4-12.3); Monocytes Absolute Auto 0.3 X10*3/uL (0.1-1.2); Monocytes Percent Auto 9.7 % (2-11); Neutrophils Absolute Auto 1.9 x10*3/uL (2.0-8.3); Neutrophils Percent Auto 57.8 % (45-73); Platelet Count 245 X10*3/uL (160-400); Red Blood Count 4.92 X10*6/uL (4.20-5.50); Red Cell Distribution Width 12.9 % (11.0-16.0); White Blood Count 3.3 X10*3/uL (4.8-10.8)
[2023-07-30 12:10] LABS: Alanine Aminotransferase 16 U/L (0-31); Albumin Level 4.2 g/dL (3.5-5.0); Alkaline Phosphatase 87 U/L (39-117); Anion Gap 10 (12-20); Aspartate Amino Transferase 24 U/L (5-31); Bilirubin Total 0.6 mg/dL (0.0-1.0); Blood Urea Nitrogen 13 mg/dL (9-16); Calcium 9.4 mg/dL (8.4-10.2); Carbon Dioxide 25 mmol/L (22-29); Chloride 109 mmol/L (96-108); Cholesterol 188 mg/dL (<200); Estimated Glomerular Filt Rate > 60; Glucose Fasting 97 mg/dL (60-99); HDL Cholesterol 70 mg/dL (>40); LDL Cholesterol Calculated 103 mg/dL (<100); Sodium 140 mmol/L (135-145); Total Protein 7.2 g/dL (6.5-8.0); Triglycerides 79 mg/dL (<150)
[2023-07-30 12:12] LABS: TSH reflex Free T4 1.67 uIU/mL (0.32-4.0)
== END 2023-07-30 07:20 | disposition home or self-care (01) ==
LOC: HO.HMGCLDS 07:19
PROVIDERS: PCP Internal Medicine; Visit Provider Internal Medicine
DX: Z00.00 Encounter for general adult medical examination without abnormal findings (principal); E66.3 Overweight
CPT/HCPCS: 36415; 80053; 80061; 84443; 85025

== ENCOUNTER 2023-08-17 08:23 | Outpatient (AMB) | payer OTHER, SELFPAY ==
--- NOTE | 2023-08-17 08:27 | AM.OFFWIN_ITS ---
Intake Vital Signs 08/17/23 08:28 Height 5 ft Weight 198 lb BMI 38.7 BP 114/76 Blood Pressure Location Rt brachial Position Sitting Pulse 80 Pulse Source Pulse Oximeter Temp 97.3 F Temp Source Temporal Artery Scan Pulse Oximetry (%) 98 Oxygen Delivery Method Room Air Intake Visit Reasons: EP, headache, cough, sneeze (masked) Intake Note: Patient here for headache since Tuesday and then on Tuesday she started with the sneezing and dry cough. she would like to get something for migraines. Patient Tobacco Use Status: Never used Tobacco Allergies Penicillins [PENICILLINS] Allergy (Unknown, Verified 08/17/23 08:29) Rash Do you need a note to return to daycare/school/sports/work: Yes HPI EP, headache, cough, sneeze (masked) HPI Details 57-[facility]. Reports dry cough, sinus pressure, and ear pain left greater than right for the last 4 days. Denies known exposure to sick contacts. [facility] Medical History Left ankle pain Overweight Annual physical exam Osteoarthritis, knee Surgical History Hx of colonoscopy Family History Father Hypertension Diabetes Throat cancer Mother Diabetes Breast cancer Brother Substance use disorder Social History Housing: House Alcohol intake: never Patient Tobacco Use Status: Never used Tobacco e-Cigarette/Vaping Use: Never Used Current occupational status: employed Cognitive needs: No Hearing needs: No Vision needs: Yes Review of Systems Const All systems reviewed & are unremarkable except as noted in HPI and below Physical Exam Vital Signs: Last Vital Signs Temp 97.3 F 08/17/23 08:28 Pulse 80 08/17/23 08:28 BP 114/76 08/17/23 08:28 Pulse Ox 98 08/17/23 08:28 Oxygen Delivery Method Room Air 08/17/23 08:28 BMI result Body Mass Index 38.7 Const General: cooperative, healthy appearing, comfortable and no acute distress HEENT Head: Yes normal to inspection Ears: hearing grossly normal bilaterally, external ears normal and TM abnormal (Bilateral erythema, bulging) General nose exam: Normal external nose present, Normal nares present and Normal nasal mucous membranes and turbinates present Face and sinus: Yes sinus tenderness (Maxillary and frontal) Mouth: Normal oral and palatal mucosa present and moist mucous membranes Throat: Yes posterior oropharynx normal Neck Neck: Yes no lymphadenopathy Resp Effort & Inspection: normal respiratory effort and able to speak in complete sentences Auscultation: clear to auscultation bilaterally Cardio Jugular venous distension: no JVD Palpation: normal PMI Rate: regular rate Rhythm: regular rhythm Skin General skin exam: no rashes or lesions noted Extrem General: Yes capillary refill normal and Yes no clubbing, cyanosis or edema Psych Appearance: grossly normal Mental Status: mental status grossly normal Speech and movement: Normal speech and movement present Assessment & Plan Assessment & Plan (1) Bilateral otitis media: Code(s): H66.93 - Otitis media, unspecified, bilateral Qualifiers: Chronicity: acute Otitis media type: suppurative Recurrence: non- recurrent Spontaneous tympanic membrane rupture: without spontaneous rupture Qualified Code(s): H66.003 - Acute suppurative otitis media without spontaneous rupture of ear drum, bilateral Plan: Augmentin for bilateral otitis media. Patient has penicillin allergy, and states she can tolerate amoxicillin. Reviewed indications, use medication. Advised to return to the clinic she does not improve with treatment. (2) Dry cough: Code(s): R05.8 - Other specified cough Plan: LS clear. Covid test ordered per patient's request. Advised lozenges, hydration, otc cough medicine as needed. If symptoms worsen she should return to the clinic for evaluation. She agrees to plan. Work note provided. Orders: Orders BinaxNOW Covid-19 Ag Today R05.8 - Other specified cough Medications: New amoxicillin-pot clavulanate 875-125 mg Take twice a day for 7 days. 1 tab PO BID 7 days 14 tabs 0RF H66.003 - Acute suppurative otitis media without spontaneous rupture of ear drum, bilateral Coding Level of Care Code Est Pt Level 3 (22176) Diagnoses Non-recurrent acute suppurative otitis media of both ears without spontaneous rupture of tympanic membranes H66.003 Chronicity: acute Otitis media type: suppurative Recurrence: non-recurrent Spontaneous tympanic membrane rupture: without spontaneous rupture Dry cough R05.8
[2023-08-17 08:28] VITALS: BP 114/76; PULSE 80; TEMP 36.3; O2SAT 98; BMI 38.7
== END 2023-08-17 08:57 | disposition home or self-care (01) ==
PROVIDERS: PCP Internal Medicine; Visit Provider Nurse Practitioner Family
DX: H66.003 Acute suppurative otitis media without spontaneous rupture of ear drum, bilateral (principal); R05.8 Other specified cough
CPT/HCPCS: 99213

== ENCOUNTER 2023-08-17 08:49 | Outpatient (REF) | payer OTHER, SELFPAY ==
[2023-08-17 09:15] LABS: Binax Now Covid-19 Ag Positive (Negative)
[2023-08-17 09:16] LABS: Binax Internal Control QC Valid; Binax Performed by: PAULP
== END 2023-08-17 08:50 | disposition home or self-care (01) ==
LOC: HO.HMGCLDS 08:49
PROVIDERS: PCP Internal Medicine; Visit Provider Nurse Practitioner Family
DX: R05.8 Other specified cough (principal); Z20.822 Contact with and (suspected) exposure to COVID-19
CPT/HCPCS: 87811; C9803

== ENCOUNTER 2023-09-12 12:51 | Outpatient (AMB) | payer OTHER, SELFPAY ==
--- NOTE | 2023-09-12 13:32 | A.OFFVIS_ITS ---
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 Accompanied by: Self / Same As Patient Allergies Penicillins [PENICILLINS] Allergy (Unknown, Verified 09/12/23 13:31) Rash Medication List - Last Reconciled 09/12/23 by Roberta Medina PA-C amoxicillin-pot clavulanate 875-125 mg 1 tab PO BID 7 days ascorbic acid (vitamin C) mg PO compr.stocking,knee,long,large 10-20 mmHg COMPRESSION ibuprofen 400 mg PO Q6H PRN meclizine 25 mg PO TID PRN fpthrxljbero-Bj-luxg-minerals tabs PO omega-3 fatty acids 1,000 mg PO DAILY HPI HPI Comments History of Present Illness Details A 57 y/o female referred for screening colonoscopy Heartburn with known culprits- tums good response-appetite very good No bowel issues, normal pattern no cardiac or respiratory issues No nausea, vomiting, hematemesis, hematochezia fever chills PFSH Medical History Left ankle pain Overweight Annual physical exam Osteoarthritis, knee Surgical History Hx of colonoscopy Family History Father Hypertension Diabetes Throat cancer Mother Diabetes Breast cancer Brother Substance use disorder Social History Housing: House Alcohol intake: never Patient Tobacco Use Status: Never used Tobacco e-Cigarette/Vaping Use: Never Used Current occupational status: employed Cognitive needs: No Hearing needs: No Vision needs: Yes Review of Systems Const All systems reviewed & are unremarkable except as noted in HPI and below Card Denies chest pain and Denies dyspnea Resp Denies dyspnea GI Denies abdominal pain, Denies bloating, Denies hematochezia, Denies change in bowel habits, Reports heartburn, Denies nausea and Denies vomiting Psych Denies anxiety and Denies depression Physical Exam Vital Signs: Last Vital Signs Pulse 69 09/12/23 13:33 BP 141/66 H 09/12/23 13:33 BMI result Body Mass Index 38.7 Const General: cooperative, healthy appearing and comfortable Orientation/consciousness: patient oriented x3 Limitations: no limitations Eyes Sclerae: sclerae normal Resp Effort & Inspection: normal respiratory effort and able to speak in complete sentences Auscultation: clear to auscultation bilaterally, no rales, no rhonchi and no wheezes Cardio Rate: regular rate Rhythm: regular rhythm Heart sounds: S1 normal heart sound present and S2 normal heart sound present GI Palpation (GI): Soft to palpation and nontender Auscultation: normal bowel sounds Skin General skin exam: no rashes or lesions noted Neuro General: patient oriented x3 Extrem General: Yes full ROM Psych Appearance: grossly normal and well kempt Mental Status: mental status grossly normal Speech and movement: Normal speech and movement present and Clear speech present Affect: normal affect Attitude: cooperative Thought process: Normal thought process present Thought content: Normal thought content present Insight: Good insight present (Psych) Judgement: Good judgement present (Psych) Assessment & Plan Assessment & Plan (1) Acid reflux: Comment: w/ known culprits- tums, typically well controlled Code(s): K21.9 - Gastro-esophageal reflux disease without esophagitis Plan: avoid culprits (2) Encounter for screening colonoscopy: Code(s): Z12.11 - Encounter for screening for malignant neoplasm of colon Plan: MG prep Orders: Orders Colonoscopy - GI Use Only 09/12/23 Z12.11 - Encounter for screening for malignant neoplasm of colon Medications: New polyethylene glycol 3350 (Miralax) Take as directed by mouth the day before your procedure. 238 grams PO ONCE PRN 238 grams 0RF laxative effect 1 day bisacodyl (Dulcolax (bisacodyl)) Day before procedure, prep day Take 4 tablets by mouth upon awakening followed by large glass of water 20 mg (4 x 5 mg) PO ONCE 4 tabs 0RF colonoscopy prep 1 day Z12.11 - Encounter for screening for malignant neoplasm of colon Patient Instructions: Screening colonoscopy MiraLax Gatorade prep literature given Acid reflux, rare symptoms only with no in culprits Tums very response Reviewed precautions-she will continue to monitor symptoms if becomes more persistent consult EGD Coding Level of Care Code New Pt Level 3 (53706) Diagnoses Acid reflux K21.9 Encounter for screening colonoscopy Z12.11 Time Spent (min) 30
[2023-09-12 13:33] VITALS: BP 141/66; PULSE 69; BMI 38.7
== END 2023-09-12 15:03 | disposition home or self-care (01) ==
PROVIDERS: PCP Internal Medicine; Visit Provider Physician Assistant
DX: K21.9 Gastro-esophageal reflux disease without esophagitis (principal); Z12.11 Encounter for screening for malignant neoplasm of colon
CPT/HCPCS: 99203

== ENCOUNTER → 2023-09-12 12:51 | Outpatient (BNVA) | payer OTHER, SELFPAY | PROVIDERS: PCP Internal Medicine; Visit Provider Physician Assistant ==

== ENCOUNTER 2024-01-04 13:26 | Outpatient (AMB) | payer OTHER, SELFPAY ==
[2024-01-04 14:17] VITALS: BP 124/70; PULSE 67; TEMP 36.8; O2SAT 98; BMI 39.3
--- NOTE | 2024-01-04 14:17 | MHC.OFFWIV ---
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: pt is here today for lft thumb pain radiates up forearm started 2 week ago Patient Tobacco Use Status: Never used Tobacco Allergies Penicillins [PENICILLINS] Allergy (Unknown, Verified 01/04/24 14:41) Rash Medication List - Last Reconciled 01/04/24 by Jose Rubio MD compr.stocking,knee,long,large 10-20 mmHg COMPRESSION ibuprofen 400 mg PO Q6H PRN yekxtjpwazfn-Gi-qpri-minerals tabs PO omega-3 fatty acids 1,000 mg PO DAILY polyethylene glycol 3350 (Miralax) 238 grams PO ONCE PRN 1 day Do you need a note to return to daycare/school/sports/work: Yes HPI EP 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 Patient is complaining of pain in the left wrist and thumb for the past week. Does not recall any fall or injury. No morning stiffness. [facility] Medical History Left ankle pain Overweight Annual physical exam Osteoarthritis, knee Surgical History Hx of colonoscopy Family History Father Hypertension Diabetes Throat cancer Mother Diabetes Breast cancer Brother Substance use disorder Social History Housing: House Alcohol intake: never Patient Tobacco Use Status: Never used Tobacco e-Cigarette/Vaping Use: Never Used Current occupational status: employed Cognitive needs: No Hearing needs: No Vision needs: Yes Physical Exam Vital Signs: Last Vital Signs Temp 98.2 F 01/04/24 14:17 Pulse 67 01/04/24 14:17 BP 124/70 01/04/24 14:17 Pulse Ox 98 01/04/24 14:17 Oxygen Delivery Method Room Air 01/04/24 14:17 BMI result Body Mass Index 39.3 Extrem Other: Left hand: Tenderness at the base of the thumb. Pain on flexion. Assessment & Plan Assessment & Plan (1) Sprain of left wrist: Code(s): S63.502A - Unspecified sprain of left wrist, initial encounter Plan: X-ray images were reviewed by me. No fractures seen. Thumb splint applied. Anti-inflammatory called in. Note for work given. Coding Level of Care Code Est Pt Level 4 (80002) Diagnoses Sprain of left wrist S63.502A
== END 2024-01-04 15:11 | disposition home or self-care (01) ==
PROVIDERS: PCP Internal Medicine; Visit Provider Internal Medicine
DX: S63.502A Unspecified sprain of left wrist, initial encounter (principal)
CPT/HCPCS: 99214

== ENCOUNTER 2024-01-04 14:41 | Outpatient (REF) | payer OTHER, SELFPAY ==
--- NOTE | ~2024-01-04 | XR_ITS ---
EXAMINATION: XR WRIST, LEFT CLINICAL INFORMATION: Sprain of the left wrist COMPARISON: None available. TECHNIQUE: PA, lateral, and oblique views of the left wrist. FINDINGS: The bones and soft tissues are normal. No fracture. Alignment is anatomic with normal joint spaces. No erosions or abnormal soft tissue calcifications. XR/XR wrist LT min 3V IMPRESSION: Normal left wrist.
== END 2024-01-04 14:42 | disposition home or self-care (01) ==
LOC: HO.HMGCX 14:41
PROVIDERS: PCP Internal Medicine; Visit Provider Internal Medicine
DX: S63.502A Unspecified sprain of left wrist, initial encounter (principal)
CPT/HCPCS: 73110

== ENCOUNTER 2024-05-09 13:35 | Outpatient (AMB) | payer OTHER, SELFPAY ==
--- NOTE | 2024-05-09 13:38 | MHC.OFFWIV ---
Intake Vital Signs 05/09/24 13:39 Height 5 ft Weight 195 lb BMI 38.1 BP 130/82 Blood Pressure Location Rt brachial Position Sitting Pulse 71 Pulse Source Pulse Oximeter Pulse Oximetry (%) 98 Oxygen Delivery Method Room Air Intake Visit Reasons: EP Bilateral knee/LT ankle swelling Intake Note: Patient here for bilat knee swelling which has been going on since last august but has worsened. Patient Tobacco Use Status: Never used Tobacco Allergies Penicillins [PENICILLINS] Allergy (Unknown, Verified 05/09/24 13:41) Rash Do you need a note to return to daycare/school/sports/work: No HPI HPI Comments History of Present Illness Details Patient is a 58-year-old female complaining of chronic bilateral knee pain and left ankle swelling that she has been experiencing for years. She states she has seen orthopedics in the past, she has received cortisone injections which she did not think lasted long enough, only 2-3 months. 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 She has been using Michael-Ellsworth and ibuprofen randomly which she states does not help. She also uses Voltaren which only helps temporarily and not all the time. She states the fat on the insides of her knees hit each other and that is irritating. She states she is trying to lose weight she has lost some. She comes in today because she is tired of dealing with the pain. She states the most pain is directly below both of her knees, it is worse with walking, better with sitting. She states she sits at her job 9 hours a day. [facility] Medical History Left ankle pain Overweight Annual physical exam Osteoarthritis, knee Surgical History Hx of colonoscopy Family History Father Hypertension Diabetes Throat cancer Mother Diabetes Breast cancer Brother Substance use disorder Social History Housing: House Alcohol intake: never Patient Tobacco Use Status: Never used Tobacco e-Cigarette/Vaping Use: Never Used Current occupational status: employed Cognitive needs: No Hearing needs: No Vision needs: Yes Review of Systems Const All systems reviewed & are unremarkable except as noted in HPI and below Physical Exam Vital Signs: Last Vital Signs Pulse 71 05/09/24 13:39 BP 130/82 05/09/24 13:39 Pulse Ox 98 05/09/24 13:39 Oxygen Delivery Method Room Air 05/09/24 13:39 BMI result Body Mass Index 38.1 Const General: cooperative, healthy appearing, comfortable and no acute distress Nutritional Appearance: obese Orientation/consciousness: patient oriented x3 Limitations: no limitations HEENT Head: Yes normal to inspection Resp Effort & Inspection: normal respiratory effort and able to speak in complete sentences Neuro General: patient oriented x3 Extrem Right lower extremity: knee Details: tenderness ( ) Location: of the infrapatellar area, normal ROM and knee ligament exam normal; no swelling, no abrasions, no lacerations, no ecchymosis and no unusual warmth Left lower extremity: knee Details: tenderness (posterior knee) Location: of the infrapatellar area, normal ROM and knee ligament exam normal; no swelling, no abrasions, no lacerations, no ecchymosis and no unusual warmth Assessment & Plan Assessment & Plan (1) Knee pain, bilateral: Code(s): M25.561 - Pain in right knee; M25.562 - Pain in left knee Qualifiers: Chronicity: acute Qualified Code(s): M25.561 - Pain in right knee; M25.562 - Pain in left knee Plan: Likely bursitis, but she does have a history of arthritis and has seen Orthopedics for a steroid injection, may need knee replacement per the orthopedics note from 12/2021. We will send orthopedics referral as well as diclofenac PO to cover her for a few weeks of PRN use. Plan see above Orders: Referrals Orthopedics Referral M25.561 - Pain in right knee, M25.562 - Pain in left knee Medications: New diclofenac potassium 25 mg PO TID 20 tabs 0RF Discontinued meloxicam Discontinued Reason: Doctor's Order 15 mg PO DAILY 14 tabs 0RF Coding Level of Care Code Est Pt Level 4 (55353) Diagnoses Acute pain of both knees M25.561; M25.562 Chronicity: acute
[2024-05-09 13:39] VITALS: BP 130/82; PULSE 71; O2SAT 98; BMI 38.1
== END 2024-05-09 14:10 | disposition home or self-care (01) ==
PROVIDERS: PCP Internal Medicine; Visit Provider Physician Assistant
DX: M25.561 Pain in right knee (principal); M25.562 Pain in left knee
CPT/HCPCS: 99214

== ENCOUNTER 2024-07-16 13:40 | Outpatient (AMB) | payer OTHER, SELFPAY ==
[2024-07-16 13:50] VITALS: BMI 38.1
--- NOTE | 2024-07-16 13:50 | MHC.OFFVIS ---
Vital Signs 07/16/24 13:50 Height 5 ft Weight 195 lb BMI 38.1 Intake Visit Reasons: OV- B/L knee pain OA Intake Note: Adilia is a 58 year old female who presents today for a follow up of her Left Knee OA. She was last seen on 04/22/2022 where the left knee was injection. Patient states that her primary concern today is the bakers cyst of the left knee. She was under the impression that she was coming to the office today for physical therapy. She would like an order for PT Allergies Penicillins [PENICILLINS] Allergy (Unknown, Verified 07/16/24 13:51) Rash HPI HPI OV- B/L knee pain OA: Details: Adilia is a 58 year old female who presents today for a follow up of her Left Knee OA. She was last seen on 04/22/2022 where the left knee was injection. Patient states that her primary concern today is the bakers cyst of the left knee. She was under the impression that she was coming to the office today for physical therapy. She would like an order for PT PFSH Medical History Left ankle pain Overweight Annual physical exam Osteoarthritis, knee Surgical History Hx of colonoscopy Family History Father Hypertension Diabetes Throat cancer Mother Diabetes Breast cancer Brother Substance use disorder Social History Housing: House Alcohol intake: never Patient Tobacco Use Status: Never used Tobacco e-Cigarette/Vaping Use: Never Used Current occupational status: employed Cognitive needs: No Hearing needs: No Vision needs: Yes Physical Exam Vital Signs: BMI result Body Mass Index 38.1 Const General: no acute distress and alert Orientation/consciousness: patient oriented x3 Neuro General: patient oriented x3 Extrem Other: Mild ttp medial joint line left knee Prominent medial knee adipose tissue bilaterally Mild Bradley's cyst present Assessment & Plan Assessment & Plan (1) Osteoarthritis, knee: Comment: left Code(s): M17.10 - Unilateral primary osteoarthritis, unspecified knee Category: Medical Plan: This is a 58-year-old woman with left knee osteoarthritis. She was told she had a Bradley's cyst which she does and was told she needed physical therapy. She would like to do physical therapy. This was ordered for her. No additional orthopedic intervention warranted. Orders: Orders PT Evaluation and Treatment Today M17.10 - Unilateral primary osteoarthritis, unspecified knee Coding Level of Care Code Est Pt Level 3 (08810) Diagnoses Osteoarthritis, knee M17.10
== END 2024-07-16 14:49 | disposition home or self-care (01) ==
PROVIDERS: PCP Internal Medicine; Visit Provider Orthopaedic Surgery
DX: M17.12 Unilateral primary osteoarthritis, left knee (principal)
CPT/HCPCS: 99213

== ENCOUNTER → 2024-07-16 13:40 | Outpatient (BNVA) | payer OTHER, SELFPAY | PROVIDERS: PCP Internal Medicine; Visit Provider Orthopaedic Surgery ==

== ENCOUNTER 2024-10-06 09:24 | Outpatient (REF) | payer OTHER, SELFPAY ==
[2024-10-06 12:07] LABS: Influenza A PCR NEGATIVE (Negative); Influenza B PCR NEGATIVE (Negative); Resp Syncy Virus RNA Qual PCR NEGATIVE (Negative); SARS COV2 PCR INHOUSE NEGATIVE (Negative)
== END 2024-10-06 09:25 | disposition home or self-care (01) ==
LOC: HO.LAB 09:24
PROVIDERS: PCP Internal Medicine; Visit Provider Nurse Practitioner Family
DX: R05.1 Acute cough (principal); J06.9 Acute upper respiratory infection, unspecified; R09.89 Other specified symptoms and signs involving the circulatory and respiratory systems
CPT/HCPCS: 0241U

== ENCOUNTER 2024-10-06 09:24 | Outpatient (AMB) | payer OTHER, SELFPAY ==
[2024-10-06 09:49] VITALS: BP 128/80; PULSE 72; TEMP 36.6; O2SAT 97; BMI 38.1
--- NOTE | 2024-10-06 09:49 | AM.OFFWIN_ITS ---
Intake Vital Signs 10/06/24 09:49 Height 5 ft Weight 195 lb BMI 38.1 BP 128/80 Blood Pressure Location Rt brachial Position Sitting Pulse 72 Pulse Source Pulse Oximeter Temp 97.9 F Temp Source Oral Pulse Oximetry (%) 97 Oxygen Delivery Method Room Air Intake Visit Reasons: EP Dry cough, rt ear, stomach Intake Note: pt is here for dry cough, right ear pain and stomache Patient Tobacco Use Status: Never used Tobacco Allergies Penicillins [PENICILLINS] Allergy (Unknown, Verified 10/06/24 09:49) Rash Do you need a note to return to daycare/school/sports/work: No HPI HPI Comments History of Present Illness Details 58 y/o female patient who presents to [facility] in clinic with c/o URI symptoms. Pt c/o cough, B/L ear pains and stomach upset. Reports cough started ~ 1 week ago. GI upset started yesterday night. Denies fevers, chills, nuasea or vomiting. [facility] Medical History Left ankle pain Overweight Annual physical exam Osteoarthritis, knee Surgical History Hx of colonoscopy Family History Father Hypertension Diabetes Throat cancer Mother Diabetes Breast cancer Brother Substance use disorder Social History Housing: House Alcohol intake: never Patient Tobacco Use Status: Never used Tobacco e-Cigarette/Vaping Use: Never Used Current occupational status: employed Cognitive needs: No Hearing needs: No Vision needs: Yes Review of Systems Const All systems reviewed & are unremarkable except as noted in HPI and below Physical Exam Vital Signs: Last Vital Signs Temp 97.9 F 10/06/24 09:49 Pulse 72 10/06/24 09:49 BP 128/80 10/06/24 09:49 Pulse Ox 97 10/06/24 09:49 Oxygen Delivery Method Room Air 10/06/24 09:49 BMI result Body Mass Index 38.1 Const General: cooperative and no acute distress Nutritional Appearance: obese Orientation/consciousness: patient oriented x3 HEENT Head: Yes normocephalic Ears: external ears normal and TM abnormal with fluid behind the TM bilateral General nose exam: Normal external nose present and Nasal discharge present Face and sinus: Yes sinuses nontender Mouth: moist mucous membranes Throat: Yes uvula midline and Yes abnormal tonsil (+2 enlarged tonsils) Resp Effort & Inspection: normal respiratory effort and able to speak in complete sentences Auscultation: clear to auscultation bilaterally, no crackles, no rales, no rhonchi and no wheezes Cardio Heart sounds: S1 normal heart sound present and S2 normal heart sound present Neuro General: patient oriented x3 Assessment & Plan Assessment & Plan (1) Acute respiratory disease: Code(s): J06.9 - Acute upper respiratory infection, unspecified Plan: Ordered SARs. OTC cough remedies Hydrate with plenty of fluids and Honey Rest. (2) Cough: Code(s): R05.9 - Cough, unspecified Qualifiers: Cough type: acute Qualified Code(s): R05.1 - Acute cough Plan: Ordered SARs. OTC cough remedies Hydrate with plenty of fluids and Honey Rest. Plan Ordered SARs. OTC cough remedies Hydrate with plenty of fluids and Honey Rest. Orders: Orders SARS-CoV2/FLU/RSV Today R09.89 - Other specified symptoms and signs involving the circulatory and respiratory systems Medications: New benzonatate 100 mg PO TID 90 caps 0RF J06.9 - Acute upper respiratory infection, unspecified, R05.1 - Acute cough prednisone 50 mg PO DAILY 5 tabs 0RF J06.9 - Acute upper respiratory infection, unspecified, R05.1 - Acute cough Coding Level of Care Code Est Pt Level 3 (12496) Diagnoses Acute respiratory disease J06.9 Acute cough R05.1 Cough type: acute Time Spent (min) 15
== END 2024-10-06 10:37 | disposition home or self-care (01) ==
PROVIDERS: PCP Internal Medicine; Visit Provider Nurse Practitioner Family
DX: J06.9 Acute upper respiratory infection, unspecified (principal); R05.1 Acute cough

== ENCOUNTER 2024-10-09 14:00 | Outpatient (RCR) | payer OTHER, SELFPAY ==
--- NOTE | 2024-08-27 14:57 | MHC.PT.EP ---
[facility] [place] [facility] [place] [facility] [place] [facility] [address] Toyin Jimenez [address] [phone] F: [phone] F: [phone] F: [phone] F: [phone] Physical Therapy Plan of Care Date of Evaluation: 08/27/24 Date of Surgery: Diagnosis: OA L knee Assessment: Patient is a 58 year old R handed female who presents with s/s consistent with knee OA, L knee pain. 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 Patient past medical history includes chronic L knee pain and ankle surgery. Current impairments include pain, flexibility, ROM, strength, activity tolerance and functional mobility. Functional limitations include decreased ability to walk, stand, negotiate stairs, squat, bend, dress and be active. Patient is motivated with good rehab potential. Skilled PT will address impairments and functional limitations in order to achieve goals. Frequency and Duration: The patient will be seen 2x/week for 5 weeks Short Term Goals: I with HEP - 2 weeks AROM 0-120 - 3 weeks Max pain with ADLs 4/10 - 3 weeks Equal Opportunity Counselor Goals: Strength 4+/5 grossly - 5 weeks Able to negotiate stairs step through - 5 weeks LEFS 36/80 - 5 weeks Max pain 2/10 with ADLs. - 5 weeks Treatment Plan: Modalities to reduce pain, spasms and effusion. Manual therapy to restore motion and function. Therapeutic exercise to improve strength and flexibility. Neuromuscular re-education for posture and balance. Therapeutic activities to return to functional activities of daily living. Electronically signed by: Bryant Chopra, PT Please sign and return to therapist. Thank you for your referral.
--- NOTE | 2025-02-08 07:57 | MHC.PT.DC ---
[facility] [place] Office [place] [facility] [place] Office [address] Toyin Jimenez [address] [phone] F: [phone] F: [phone] F: [phone] F: [phone] Physical Therapy Discharge Report Diagnosis: OA L knee Date of Surgery: Date of Evaluation: 08/27/24 Date of Discharge: 11/01/24 Treatments to Date: 8 Cancellations to Date: No Shows to Date: Discharge Status: Improved Function Independent with HEP Discharge Summary: 10/09; Pt I with HEP. No increase in pain with exs. Pt has 1 visit before DC. Discussed going to [facility] for ex classes. [place] LEFS and DC 10/02; Pt performed exs with no c/o pain. Pt progressing with mobility, strength, stairs. 09/20/24: pt motivated and progressing well. we will continue to work on hip flexion ROM And strength as pt maintains impairment here. 09/18/24: pt progressing well. motivated to improve and continue. continue to progress as tolerated. 09/11/24: pt progressing well with skilled PT for strength/balance. however, flexion ROM has been lacking improvement. 09/05; Pt fatigued quickly after hip exs. Pt exp cramping R HS with knee flexion. Challenged with EC balance exs. NV wall slides, review stairs. Patient is a 58 year old R handed female who presents with s/s consistent with knee OA, L knee pain. 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 Patient past medical history includes chronic L knee pain and ankle surgery. Current impairments include pain, flexibility, ROM, strength, activity tolerance and functional mobility. Functional limitations include decreased ability to walk, stand, negotiate stairs, squat, bend, dress and be active. Patient is motivated with good rehab potential. Skilled PT will address impairments and functional limitations in order to achieve goals. Electronically signed by: Bryant Chopra, PT Please sign and return to therapist. Thank you for your referral.
== END 2025-02-08 07:57 | disposition home or self-care (01) ==
LOC: HO.PTCHIC 14:00
PROVIDERS: PCP Internal Medicine; Visit Provider Orthopaedic Surgery
DX: M17.12 Unilateral primary osteoarthritis, left knee (principal)
CPT/HCPCS: 97110; 97112; 97162

== ENCOUNTER 2024-12-17 10:45 | Outpatient (REF) | payer OTHER, SELFPAY ==
--- OUTSIDE RECORDS SUMMARY | 2024-12-17 18:08 | XMS_ITS | Clinical Summary ---
Author Organization [facility] Address [address] [place] [address] Care Team Providers Care Refractory Tile Helper Name Role Phone Unavailable Primary Care Provider [...]
== END 2024-12-17 10:46 | disposition home or self-care (01) ==
LOC: HO.LAB 10:45
PROVIDERS: PCP Internal Medicine
DX: Z13.89 Encounter for screening for other disorder (principal)

== ENCOUNTER 2024-12-17 10:45 | Outpatient (AMB) | payer OTHER, SELFPAY ==
--- NOTE | 2024-12-17 11:23 | AM.OFFWIN_ITS ---
Intake Vital Signs 3 12/17/24 11:24 Height 5 ft Weight 195 lb BMI 38.1 BP 132/80 Blood Pressure Location Lt brachial Position Sitting Pulse 83 Pulse Source Pulse Oximeter Temp 98.0 F Temp Source Oral Pulse Oximetry (%) 98 Oxygen Delivery Method Room Air Intake Visit Reasons: EP SOB, severe pain on LT side Intake Note: pt is here for pain lower hip goes upward on left side, denies chest pain Patient Tobacco Use Status: Never used Tobacco Allergies Penicillins [PENICILLINS] Allergy (Unknown, Verified 12/17/24 11:24) Rash Do you need a note to return to daycare/school/sports/work: No HPI HPI Comments 2 History of Present Illness0 Details 59 y/o female patient who presents to [facility] walk in clinic with c/o severe left sided lower back pain that radiates to her left buttock and lower abdomen since this morning. Pt reports that pain started on/off for over 1 week now, but this morning work-up with severe excruciating pain that is not responding to Pain medicine. Pt appears to be in pain, walks with a limp and unable to sit down. [facility] Medical History Left ankle pain Overweight Annual physical exam Osteoarthritis, knee Surgical History Hx of colonoscopy Family History Father Hypertension Diabetes Throat cancer Mother Diabetes Breast cancer Brother Substance use disorder Social History Housing: House Alcohol intake: never Patient Tobacco Use Status: Never used Tobacco e-Cigarette/Vaping Use: Never Used Current occupational status: employed Cognitive needs: No Hearing needs: No Vision needs: Yes Review of Systems Const All systems reviewed & are unremarkable except as noted in HPI and below Physical Exam Vital Signs: Last Vital Signs Temp 98.0 F 12/17/24 11:24 Pulse 83 12/17/24 11:24 BP 132/80 12/17/24 11:24 Pulse Ox 98 12/17/24 11:24 Oxygen Delivery Method Room Air 12/17/24 11:24 BMI result Body Mass Index 38.1 Const General: cooperative; No comfortable Nutritional Appearance: obese Orientation/consciousness: patient oriented x3 Back/Spine/Pelvis Thoracic/Lumbar Spine: thoraco-lumbar spasm and lumbar spinal tenderness at L5 Sacrum: no swelling and tenderness on the left Coccyx: Coccyx tenderness present on direct palpation Back/spine/pelvis image: 2 1. Tenderness, radiating to the left buttock and LLQ abdominal pain. Skin General skin exam: no rashes or lesions noted Neuro Other: Walks with a limp due to pain. General: patient oriented x3 and moves all extremities Psych Speech and movement: Normal speech and movement present Assessment & Plan Assessment & Plan (1) Acute pain of left lower extremity: Code(s): M79.605 - Pain in left leg Plan: Due to severe pain Patient is in, Advised visit to Emergency room for further evaluation. Pt understands and will drive to ED today. Coding Level of Care Code Est Pt Level 3 (56057) Diagnoses Acute pain of left lower extremity M79.605 Time Spent (min) 15
[2024-12-17 11:24] VITALS: BP 132/80; PULSE 83; TEMP 36.7; O2SAT 98; BMI 38.1
--- OUTSIDE RECORDS SUMMARY | 2024-12-17 15:33 | XMS_ITS ---
Author Organization [facility] Address [address] [place] [address] [address] [place] [address] Care Team Providers Care Seismic Prospecting Supervisor Name Role Phone Olga Mckeon MD Primary Care Provider JONATHAN Peres [phone] REASON FOR VISIT New order for screen u/s Encounters Encounter Location Date Provider Diagnosis [facility] [address] [place] [address] [address] [place] [address] 06/13/2024 JONATHAN HOPE Inconclusive mammogr am R92.2 Assessments Encounter Date Diagnosis (ICD Code) Assessment Notes Treatment Notes Treatment Clinical Notes Section Notes 06/13/2024 Inconclusive mammogram (ICD-10 - R92.2) Plan Of Treatment Pending Test Test Name Order Date Screening Bilateral Breast Ultrasound Next Appt Details Provider Name:JONATHAN Myers, 06/17/2025 08:30:00 AM, [address] [place] [address], [address], [place], [address], Progress Notes * MARLENA THOMASB:1965 ( 58 yo F)Acc No.[id number]:06/13/2024 Patient:?WILLIAM REMBERTO :1965???Age:58 Y???Sex:Female Address:[address] [place] [address] [facility] [place] [address] Subjective: * Chief Complaints: * ???New order for screen u/s * Medical History:? * Surgical History:? * Hospitalization/Major Diagno stic Procedure:? * Medications:? Objective: * Vitals:? * Physical Examination:? Assessment: * Assessment: 1.?Inconclusive mammogram - R92.2 (Primary)??? Plan: * Treatment: * Procedure Codes:? * true * Date:? Generated for Shelby nolen/Ricky/Spike on:?12/17/2024 03:33 PM EST
--- OUTSIDE RECORDS SUMMARY | 2024-12-17 15:33 | XMS_ITS | Patient Health Record ---
Author Organization [employer] [facility] Address [address] [address] Care Team Providers Care Tutorial Laboratory Supervisor Name Role Phone Olga Mckeon MD Primary Care Provider JONATHAN Peres Unavailable [phone] Allergies Allergen (clinical drug ingredient) Drug/Non Drug Allergy documented on EMR Reaction Allergy Type Onset Date Status penicillin G Penicillin G Sodium Immunodeficiency Drug Allergy Active Reason For Referral No Information Medications Medication SIG (Take, Route, Fr equency, Duration) Notes Start Date End Date Status Vitamin C as directed Orally Once a day Active Multi For Her 50+ - as directed Orally Once a day Active Meloxicam 15 MG Oral for 14 Days Active Vitamin D 1 tablet Orally Once a day Active Vitamin B 12 Active Social History Tobacco Use: Social History Observation Description Date Details (start date - stop date) Never Smoker NA - NA Tobacco Use/Smoking Question Answer Notes Are you a nonsmoker Alcohol Screen (Audit-C) Question Answer Notes Did you have a drink contain ing alcohol in the past year? Yes How often did you have a dri nk containing alcohol in the past year? Monthly or less (1 point) How many drinks did you have on a typical day when you were drinking in the past year? 1 or 2 drinks (0 point) How often did you have 6 or more drinks on one occasion in the past year? Never (0 point) Points 1 Interpretation Negative Sexual History Question Answer Notes Had sex in the past 12 months (vaginal, oral, or anal)? No Have you ever had a Sexually transmitted disease ? No Problems Problem Type SNOMED Code ICD Code Onset Dates Problem Status W/U Status Risk Notes Problem Postmenopausal atrophic vaginitis (95329441) Postmenopausal atrophic vaginitis (N95.2) Active confirmed Problem SI - Stress incontinence (92831216) Stress incontinence (female) (male) (N39.3) Active confirmed Problem Postmenopausal bleeding (06245462) Postmenopausal bleeding (N95.0) Active confirmed Problem Urinary incontinence (379981118) Other specified urinary incontinence (N39.498) Active confirmed Problem COVID-19 (974452513) COVID-19 (U07.1) Active confirmed Vital Signs Temperature 96.8 degrees Fahrenheit 06/12/2024 Blood pressure diastolic 76 mm Hg 06/12/2024 Height 60 in 06/12/2024 Blood pressure systolic 122 mm Hg 06/12/2024 Weight 196 lbs 06/12/2024 BMI 38.27 kg/m2 06/12/2024 Encounters Encounter Location Date Provider Diagnosis [address] [place] [address] [address] 06/12/2024 JONATHAN HOPE Encounter for gynecological examination (general) (routine) without abnormal findings Z01.419 ; Encounter for screening mammogram for malignant neoplasm of breast Z12.31 ; Inconclusive mammogram R92.2 ; Dense breasts, unspecified R92.30 and Family history of malignant neoplasm of breast Z80.[address] [address] 06/13/2024 JONATHAN HOPE Inconclusive mammogr am R92.[address] [address] 08/09/2024 JONATHAN HOEP Inconclusive mammogr am R92.2 and Family history of malignant neoplasm of breast Z80.3 Assessments Encounter Date Diagnosis (ICD Code) Assessment Notes Treatment Notes Treatment Clinical Notes Section Notes 06/13/2024 Inconclusive mammogram (ICD-10 - R92.2) 08/09/2024 Inconclusive mammogram (ICD-10 - R92.2) 06/12/2024 Encounter for gynecological examination (general) (routine) without abnormal findings (ICD-10 - Z01.419) During the visit, the following areas of concern were addressed: Discussed cervical cancer screening with either cytology alone every 3 years or high risk HPV co-testing every 5 years as per ASCCP guidelines. Advised continued annual pelvic exams. Patient encouraged to increase her level of exercise. SBE technique encouraged/tau ght. Patient reminded when annual mammogram is due. Patient encouraged to keep colon screening up to date. 06/12/2024 Encounter for screening mammogram for malignant neoplasm of breast (ICD-10 - Z12.31) 06/12/2024 Inconclusive mammogram (ICD-10 - R92.2) 08/09/2024 Family history of malignant neoplasm of breast (ICD-10 - Z80.3) 06/12/2024 Dense breasts, unspecified (ICD-10 - R92.30) 06/12/2024 Family history of malignant neoplasm of breast (ICD-10 - Z80.3) Plan Of Treatment Pending Test Test Name Order Date Urinalysis 11/07/2017 Ultrasound : Sono Hystergram 01/12/2019 THIN PREP,HPV,TONIE IF HPV+ (>29YR)(SCRN) 11/07/2017 BONE DENSITY 12/09/2018 Screening Bilateral Breast Ultrasound Screening Bilateral Breast Ultrasound Screening Bilateral Breast Ultrasound ULTRASOUND 12/09/2018 MM Digital Screening Mammogram 3D 2019 MM Digital Screening Mammogram 3D 2020 MM Digital Screening Mammogram 3D 2021 MM Digital Screening Mammogram 3D 2023 Next Appt Details Provider Name:JONATHAN Myers, 06/17/2025 08:30:00 AM, [address] [facility], [address], [place], [address], Insurance Providers Payer Name Payer Address Payer Phone Subscriber Number Group Number Insured Name Patient Relationship to Insured Coverage Start Date Coverage End Date [facility] [address] [place] [address] [id number] REMBERTO THOMAS Self - patient is the insured 3 Medical (General) History Medical History History ICD Code Arthritis Postmenopausal atrophic vaginitis N95.2 Other signs and symptoms in breast N64.5 9 Inconclusive mammogram R92.2 Disorder of breast, unspecified N64.9 Headache R51 Pelvic and perineal pain R10.2 Postmenopausal bleeding N95.0 COVID-19 U07.1 Surgical History Surgery Date(Month/Year) Lt Oophorectomy 2007 Abcess on buttocks [place] [facility] Oral Abcess in gums Left Foot-Fatty Tissue removal near grea t toe 05/09/23 Hospitalization History Reason Date(Month/Year) See Surgical Hx Anxiety Attack
--- OUTSIDE RECORDS SUMMARY | 2024-12-17 15:33 | XMS_ITS ---
Author Organization [employer] [facility] Address [address] [facility] [address] [place] [address] Care Team Providers Care Multiple Effect Evaporator Operator Name Role Phone Olga Mckeon MD Primary Care Provider JONATHAN Peres Unavailable [phone] REASON FOR VISIT New Screening Breast U/S Order Encounters Encounter Location Date Provider Diagnosis [facility] [address] [address] 08/09/2024 JONATHAN HOPE Inconclusive mammogr am R92.2 and Family history of malignant neoplasm of breast Z80.3 Assessments Encounter Date Diagnosis (ICD Code) Assessment Notes Treatment Notes Treatment Clinical Notes Section Notes 08/09/2024 Inconclusive mammogram (ICD-10 - R92.2) 08/09/2024 Family history of malignant neoplasm of breast (ICD-10 - Z80.3) Plan Of Treatment Pending Test Test Name Order Date Screening Bilateral Breast Ultrasound Next Appt Details Provider Name:JONATHAN Myers, 06/17/2025 08:30:00 AM, [address] [facility], [address], [place], [address], Progress Notes * ROSITA THOMAS:1965 ( 58 yo F)Acc No.[id number]:08/09/2024 Patient:?WILLIAMIRISHREMBERTO :1965???Age:58 Y???Sex:Female Address:[address] [place] [address], [address] Subjective: * Chief Complaints: * ???New Screening Breast U/S Order * Medical History:? * Surgical History:? * Hospitalization/Major Diagno stic Procedure:? * Medications:? Objective: * Vitals:? * Physical Examination:? Assessment: * Assessment: 1.?Inconclusive mammogram - R92.2???2.?Family history of malignant neoplasm of breast - Z80.3??? Plan: * Treatment: 2.?Family history of malignant neoplasm of breast?Imaging: Screening Bilateral Breast Ultrasound* Dense Breasts, Family Hx of Breast Cancer * Procedure Codes:? * Addendum: * ? true * Date:? Generated for Shelby nolen/Ricky/Marleyitting on:?12/17/2024 03:32 PM EST
--- OUTSIDE RECORDS SUMMARY | 2024-12-17 15:33 | XMS_ITS | Clinical Summary ---
Author Organization [facility] Address [address] [place] [address] Care Team Providers Care Electric Clock Mechanic Name Role Phone Unavailable Primary Care Provider Unavailabl e Social History Tobacco Use Types Packs/Day Years Used Date Smoking Tobacco: Never Assessed Sex and Gender Information Value Date Recorded Sex Assigned at Not on file Gender Identity Not on file Sexual Orientation Not on file Plan of Treatment Health Maintenance Due Date Last Done Comments Hepatitis C Virus Screening 1965 HIV Screening 1976 DTaP/Tdap/Td Vaccines (1 - Tdap) 1982 Pneumococcal Vaccines 50+ (1 of 1 - PCV) 2013 Zoster (Shingles) Vaccine (1 of 2) 2013 COVID-19 Vaccine ( - 2023-2 5 season) 2024 RSV Vaccine 60 years and old er and Patients (1 - 1-dose 75+ series) 2038 Hepatitis B Vaccines Aged Out No long er eligible based on patient's age to complete this topic Pneumococcal Vaccine: Pediat shilo (0-5 Years) and At-Risk Patients (6 to 49 Years) Aged Out No longer eligible b ased on patient's age to complete this topic
--- OUTSIDE RECORDS SUMMARY | 2024-12-17 15:33 | XMS_ITS ---
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 Medications Medication SIG (Take, Route, Fr equency, [...] Never (0 point) Points 1 Interpretation Negative Problems Problem Type SNOMED Code ICD Code Onset Dates Problem Status W/U Status Risk Notes Problem COVID-19 (106845507) COVID-19 (U07.1) Active confirmed Vital Signs Temperature 96.8 degrees Fahrenheit 06/12/20 24 Blood pressure systolic 122 mm Hg 06/12/20 24 Blood pressure diastolic 76 mm Hg 024 Height 60 in 06/12/2024 Weight 196 lbs 06/12/2024 BMI 38.27 kg/m2 06/12/2024 Encounters Encounter Location Date Provider Diagnosis Total [address] [place] [address] 06/12/2024 JONATHAN HOPE Encounter for gynecological examination (general) (routine) without abnormal findings Z01.419 ; Encounter for screening mammogram for malignant neoplasm of breast Z12.31 ; Inconclusive mammogram R92.2 ; Dense breasts, unspecified R92.30 and Family history of malignant neoplasm of breast Z80.3 Assessments Encounter Date Diagnosis (ICD Code) Assessment Notes Treatment Notes Treatment Clinical Notes Section Notes 06/12/2024 Encounter for gynecological examination (general) (routine) [...] Z12.31) 06/12/2024 Inconclusive mammogram (ICD-10 - R92.2) 06/12/2024 Dense breasts, unspecified (ICD-10 - R92.30) 06/12/2024 Family history of malignant neoplasm of breast (ICD-10 - Z80.3) Plan Of Treatment Treatment Notes Assessment Notes Encounter for gynecological examination (general) (routine) without abnormal findings During the visit, the following areas of concern were addressed: Discussed cervical cancer screening with either cytology alone every 3 years or high risk HPV co-testing every 5 years as per ASCCP guidelines. Advised continued annual pelvic exams. Patient encouraged to increase her level of exercise. SBE technique encouraged/taught. Patient reminded when annual mammogram is due. Patient encouraged to keep colon screening up to date. Pending Test Test Name Order Date Screening Bilateral Breast Ultrasound MM Digital Screening Mammogram 3D 2023 Next Appt Details Follow Up: 1 Year, Reason: Y early Medical Technologist Blood Bank Exam Provider Name:JONATHAN MILLER Louis, 06/17/2025 08:30:00 AM, [address], [address], [place], [address], Progress Notes * SG THOMASADOB:1965 ( 58 yo F)Acc No.[id number]:06/12/2024 PROGRESS NOTES Patient:?REMBERTO THOMAS Provider:?JONATHAN HOPE MD :1965???Age:58 Y???Sex:Female D ate:06/12/2024 Address:[address] [place] [address], [id number] Pcp:Olga Mckeon MD Subjective: * Chief Complaints: * ???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 She has been in state of good health since her last exam. She has the following concerns: none She had a suprise republican to celebrate her 58th. She has received the [place] Covid-19 vaccine. Relationship status: single. She is not sexually active since 2014. Sexual partner(s): male. She does not wish to have STI testing. She does not report vaginal dryness. She does rarely have hot flashes/night sweats. The patient has never had an abnormal pap smear. Her most recent pap smear was 06/14/22 - NIL, neg HR HPV. Next due for cotesting in 2026. She has not been diagnosed with breast cancer. She does have a family history of breast cancer - mother and 3 maternal cousins. Her last mammogram was 12/10/23 - ordered by her PCP. She has heterogeneously dense breasts, and a 23.4% Tyrer Cuzick risk. She is interested in screening ultrasound as adjunctive screening. She does not have a family history of colon cancer. She a has had a colonoscopy. The last colonoscopy was 07/01/22. She was supposed to have a colonoscopy in December, but she had a sinus infection, so it was canceled - she plans to call to reschedule. The patient does intermittently exercise. She exercises x 3-4/month by stretching, walking and a YouTube video. * ROS:?Annual Medical Technologist Blood Bank Exam ROS:?Bowel habit changes?denies.?Bladder symptoms?denies.?Vaginal discharge, unusual?denies.?Vaginal itch or odor?denies.?weight or appetite changes?denies.?Chest pains, SOB?denies.?depression?denies.?Breast:?Denies?Breast lump.?Denies?Nipple discharge.?Hematology:?Denies?Swollen glands.?Skin:?Patient denies?changing moles.?Psychiatric:?Denies?Anxiety.? * Medical History:? * Medical Technologist Blood Bank History:?/ Para?0/0.?Sexual activity?not currently sexually active.?Last Pap Smear:?06/14/22 NIL, NEG HPV, 11/07/17 NIL, NEG HRHPV, 05/2015.?Mammogram:?12/10/23 50-75% density, 10/20/21 - 50-75% density, Right Breast Ultrasound, 06/21/20 50-75% density, 11/23/18 Diagnostic 50-75% density, Needs 6 month follow up.02/2015.?LMP and menses?menopause.?Menopause: ?Began at age: ?49 ???Colonoscopy?07/01/222012.? * OB History:?Total pregnancies?0.? * Surgical History:?Lt Oophore ctomy 2008Abcess on buttocks [place] Teeth Oral Abcess in gums Left Foot-Fatty Tissue removal near great toe 05/09/23 * Hospitalization/Major Diagno stic Procedure:?Anxiety Attack See Surgical Hx * Family History:?Mother: juliano mendosa 82 yrs, breast cancer in her late 50's, right hip replacement 04/2024.?Father: 71 yrs, throat cancer.? Maternal Aunt ? abdominal , breast cancer ? Has 5 brothers, one is Brother Aleksey - 08/07/62 - diabetes Brother Vidal - 10/07/59 - hypercholesterolemia Brother Jasiel - 05/28/61 - hypercholesterolemia Brother Armani - 08/01/67 - diabetes Brother Nahid - 08/06/60 - 07/20/2015 - sepsis from surgical I&D of abscess, diabetes Niece (Nahid's daughter - 04/2015 - from complications from alcoholism 3 maternal cousins - breast cancer. * Social History:?Tobacco Use:?Tobacco Use/Smoking?Are you a?nonsmoker ???Drugs/Alcohol:?Drugs?Have you used drugs other than those for medical reasons in the past 12 months??No ?Alcohol Screen (Audit-C)?Did you have a drink containing alcohol in the past year??Yes ?How often did you have a drink containing alcohol in the past year??Monthly or less (1 point) ?How many drinks did you have on a typical day when you were drinking in the past year??1 or 2 drinks (0 point) ?How often did you have 6 or more drinks on one occasion in the past year??Never (0 point) ?Points?1 ?Interpretation?Negative ???Miscellaneous:?Children: no. ?Domestic violence: no. ?Exercise: yes, Rigo. ?Home smoke detector use: no. ?Housing: renting. ?Living with: alone. ?Marital status: single, . ?Natural support system: yes. 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 ?Pets: none. ?Sexual abuse: no. ?Sexually active: no. ?Verbal abuse: no. * Medications:?TakingVitamin B 12 Multi For Her 50+ - Tablet as directed Orally Once a day Vitamin C as directed Orally Once a day Vitamin D 1 tablet Orally Once a day Meloxicam 15 MG Tablet Oral Medication List reviewed and reconciled with the patientTaking Vitamin B 12 Taking Multi For Her 50+ - Tablet as directed Orally Once a day Taking Vitamin C as directed Orally Once a day Taking Vitamin D 1 tablet Orally Once a day Taking Meloxicam 15 MG Tablet Oral Medication List reviewed and reconciled with the patient * Allergies:?Penicillin G Sodi um: Immunodeficiencyno[Allergies Verified] Objective: * Vitals:?Ht: 60 in, Wt:196lbs , BMI:38.27Index, BP:122/76mm Hg, Temp:96.8F. * Examination: ???General Examination: ?GENERAL APPEARANCE:?in no acute distress, well developed, well nourished, tube test technician present in room.?HEAD:?normocephalic, atraumatic.?NECK/THYROID:?neck supple, full range of motion, thyroid normal.?LYMPH NODES:?no axillary or supraclavicular adenopathy.?SKIN:? normal, good turgor, no rashes, no suspicious lesions.?BREASTS:? normal, no dimpling, no discharge, no drainage, no masses palpable bilaterally, nontender.?ABDOMEN:? soft, non-tender, non distended without masses or hepatosplenomegay.?RECTAL:? normal tone, no masses palpable.?BACK:? no costovertebral angle tenderness.?FEMALE GENITOURINARY:?Vulva without lesions or masses, vagina pink without abnormal discharge, lesions or masses, cervix appears normal and is not tender to palpation, uterus is normal size, mobile, nontender and anteverted, ovaries are not palpable.?NEUROLOGIC:? alert and oriented, gait normal.?PSYCH:? alert, oriented, cognitive function intact, cooperative with exam, good eye contact, mood/affect full range, speech clear.? Assessment: * Assessment: 1.?Encounter for gynecologic al examination (general) (routine) without abnormal findings - Z01.419 (Primary)???2.?Encounter for screening mammogram for malignant neoplasm of breast - Z12.31???3.?Inconclusive mammogram - R92.2???4.?Dense breasts, unspecified - R92.30???5.?Family history of malignant neoplasm of breast - Z80.3??? Plan: * Treatment: 2.?Encounter for screening m ammogram for malignant neoplasm of breast?Imaging: MM Digital Screening Mammogram 3D 3.?Dense breasts, unspecifie d?Imaging: Screening Bilateral Breast Ultrasound 4.?Family history of maligna nt neoplasm of breast?Imaging: Screening Bilateral Breast Ultrasound * Procedure Codes:? * Preventive Medicine:? ~~~~~~~~~~~~~ STRENGTH TRAINING ~~~~~~~~~~~~~ Anyone, at any fitness level, can and should add strength training to their routine. Strength training is an important part of an overall fitness program, mainly because lean muscle mass naturally diminishes with age. You'll increase the percentage of fat in your body if you don't do anything to replace the lean muscle you lose over time. Strength training can help you preserve and enhance your muscle mass (at any age!), develop strong bones and reduce the risk of osteoporosis, manage or lose weight and increase your metabolism to help you burn more calories. It will also improve your ability to do everyday activities and reduce symptoms of chronic conditions such as arthritis, back pain, obesity, heart disease and diabetes. Some research suggests that regular strength training may help improve thinking and learning skills. Don't be intimidated. You can strength train at home or in the gym, and you have plenty of options. You can rely on your body weight and do many exercises with little or no equipment, like pushups, pullups, planks and leg squats. Or you can go pro and choose to go with resistance tubing (a lightweight tubing that provides resistance when stretched), free weights like barbells and dumbbells, or weight machines at the gym. ~~~~~~~~~~~~~~~~~~~~~~~~~~~~~~~~~~~~~~~~~~~ SARCOPENIA AND THE IMPORTANCE OF STRENGTH TRAINING EXERCISE ~~~~~~~~~~~~~~~~~~~~~~~~~~~~~~~~~~~~~~~~~~~ What is sarcopenia? ~~~~~~~~~~~~ Sarcopenia refers to the process of losing skeletal muscle mass and strength. 'Sarco' is the Croatian word referring to flesh, and 'penia' means a reduction in amount. Thus, the word describes a progressive weakening of the body caused by a 'change in body compensation in favor of fat and at the expense of muscle.' Everyone, beginning around age 25, starts to lose muscle mass, though the actual symptoms of this loss do not usually begin showing up until around the age of 40 or so. The process begins really picking up speed after the age of 65. In fact, around the age of 40, most women will lose almost a half-pound of muscle every year and replace it with fat. The result of this gradual loss of muscle is an insidious weakening of the body, loss of balance, loss of confidence upon walking, and a reduced ability to recover from near falls. As we lose strength, we become more inactive. This makes sense, because if we have less muscle, it takes much more effort to move, and we fatigue more easily. But also, with loss of strength comes loss of balance and stability. The fear of falling keeps many people sedentary, and a sedentary lifestyle opens the door for chronic illness. ~~~~~~~~~~~~~~ Take back your muscle ~~~~~~~~~~~~~~ And now for great news: you can delay sarcopenia and even reverse it. How? By lifting weights. Even though you cannot grow new muscles cells to replace the ones you have already lost, you can develop the ones that you have left. In fact, you can become stronger than you ever have in your life by simply beginning a strength training program. No matter how old you are, it is not too late to start. Even patients in nursing homes have seen transformation. After strength training, bedridden patients were able to begin walking with walkers, walker-dependent patients graduated to canes, and so on. And no matter how young you are, it is not too early to start! By starting early, you can significantly delay the effects of sarcopenia. As you begin lifting weights, you will notice a transformation in your body. You will have more energy, you will perform everyday tasks with noticeably more ease and your clothes will begin sagging on you, because you will be building muscle and burning up the fat deposits. You will have greater balance and more confidence. And perhaps best of all is the insurance policy you pay premiums on every time you choose to lift, because you are laying a strong, solid foundation for your later years. You are laying up health, independence and the ability to live well, not just long. DON'T LET ANOTHER DAY GO BY THAT YOU ARE LOSING MUSCLE. Take it back, and get ready to feel better than you ever have! . * Follow Up:?1 Year (Reason: Y early Medical Technologist Blood Bank Exam) * Images: Billing Information: * Visit Code:? 59064 Preventive Care Est Pt. Age 40-64. * Procedure Codes:? 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 She has been in state of good health since her last exam. She has the following concerns: none She had a suprise republican to celebrate her 58th. She has received the Pfizer Covid-19 vaccine. Relationship status: single. She is not sexually active since 2014. Sexual partner(s): male. She does not wish to have STI testing. She does not report vaginal dryness. She does rarely have hot flashes/night sweats. The patient has never had an abnormal pap smear. Her most recent pap smear was 06/14/22 - NIL, neg HR HPV. Next due for cotesting in 2026. She has not been diagnosed with breast cancer. She does have a family history of breast cancer - mother and 3 maternal cousins. Her last mammogram was 12/10/23 - ordered by her PCP. She has heterogeneously dense breasts, and a 23.4% Tyrer Cuzick risk. She is interested in screening ultrasound as adjunctive screening. She does not have a family history of colon cancer. She a has had a colonoscopy. The last colonoscopy was 07/01/22. She was supposed to have a colonoscopy in December, but she had a sinus infection, so it was canceled - she plans to call to reschedule. The patient does intermittently exercise. She exercises x 3-4/month by stretching, walking and a YouTube video. Examination Category Sub-Category Detail Notes Category Not es General Examination GENERAL APPEARANCE: in no ac chalkyitsik distress, well developed, well nourished, tube test technician present in room HEAD: normocephalic, atrau matic NECK/THYROID: neck supple, full ra nge of motion, thyroid normal ABDOMEN: soft, non-tender, no n distended without masses or hepatosplenomegay NEUROLOGIC: alert and oriented, gait normal SKIN: normal, good turgor, no rashes, no suspicious lesions BACK: no costovertebral an gle tenderness BREASTS: normal, no dimpling, no discharge, no drainage, no masses palpable bilaterally, nontender LYMPH NODES: no axillary or supra clavicular adenopathy RECTAL: normal tone, no mass es palpable PSYCH: alert, oriented, cog nitive function intact, cooperative with exam, good eye contact, mood/affect full range, speech clear FEMALE GENITOURINARY: Vulva without lesi ons or masses, vagina pink without abnormal discharge, lesions or masses, cervix appears normal and is not tender to palpation, uterus is normal size, mobile, nontender and anteverted, ovaries are not palpable
== END 2024-12-17 13:50 | disposition home or self-care (01) ==
PROVIDERS: PCP Internal Medicine; Visit Provider Nurse Practitioner Family
DX: M79.605 Pain in left leg (principal)

== ENCOUNTER 2024-12-25 08:05 | Outpatient (AMB) | payer OTHER, SELFPAY ==
--- OUTSIDE RECORDS SUMMARY | 2024-12-25 08:07 | XMS_ITS | Clinical Summary ---
Author Organization [facility] Address [address] [place] [address] Care Team Providers Care Sanitation Inspector Name Role Phone Unavailable Primary Care Provider [...]
--- NOTE | 2024-12-25 08:59 | AM.OFFWIN_ITS ---
Intake Vital Signs 12/25/24 09:01 Weight 199 lb BP 122/80 Blood Pressure Location Lt brachial Position Sitting Pulse 95 Pulse Source Pulse Oximeter Temp 101 F H Temp Source Oral Pulse Oximetry (%) 98 Intake Visit Reasons: EP-sob, dizziness, cough headaches chest pain Intake Note: Patient here for cough, SOB, headaches, ear pain and vomiting which started Tuesday night, Patient Tobacco Use Status: Never used Tobacco Allergies Penicillins [PENICILLINS] Allergy (Unknown, Verified 12/25/24 09:02) Rash Do you need a note to return to daycare/school/sports/work: No HPI HPI Comments History of Present Illness Details This is a 59-year-old female with no stated past medical history presenting for evaluation of a fever, sore throat, cough and chills that she has had since Tuesday evening. Patient states that she last took ibuprofen yesterday. Patient denies having any chest pain, hemoptysis, nausea, vomiting or abdominal pain. Patient is febrile upon initial evaluation. [facility] Medical History Left ankle pain Overweight Annual physical exam Osteoarthritis, knee Surgical History Hx of colonoscopy Family History Father Hypertension Diabetes Throat cancer Mother Diabetes Breast cancer Brother Substance use disorder Social History Housing: House Alcohol intake: never Patient Tobacco Use Status: Never used Tobacco e-Cigarette/Vaping Use: Never Used Current occupational status: employed Cognitive needs: No Hearing needs: No Vision needs: Yes Review of Systems Const Reports chills, Denies difficulty sleeping, Reports fatigue, Reports fever(s) and Reports headache(s) Eyes Reports no additional complaints ENT Denies otalgia, Reports headache(s), Denies nasal congestion and Reports sore throat Card Reports no additional complaints Resp Reports no additional complaints, Reports cough, Denies hemoptysis and Denies wheezing GI Reports no additional complaints, Denies nausea and Denies vomiting Reports no additional complaints Musc Reports no additional complaints Skin/Breast Reports system reviewed and no additional complaints, except as documented Neuro Reports no additional complaints and Reports headache(s) Psych Reports no additional complaints Endo Reports no additional complaints and Reports fatigue Laex/Lymph Reports no additional complaints Aller/Immun Reports no additional complaints and Denies wheezing Physical Exam Vital Signs: Last Vital Signs Temp 101 F H 12/25/24 09:01 Pulse 95 12/25/24 09:01 BP 122/80 12/25/24 09:01 Pulse Ox 98 12/25/24 09:01 Patient is febrile. Const General: cooperative, alert, awake, Physically active and ill appearing Nutritional Appearance: average body habitus Orientation/consciousness: patient oriented x3 Limitations: no limitations HEENT Head: Yes normal to inspection and Yes normocephalic Ears: hearing grossly normal bilaterally, external ears normal, TM's normal bilaterally and EAC's normal General nose exam: Normal external nose present Face and sinus: Yes normal facial exam and Yes sinuses nontender Mouth: Normal oral and palatal mucosa present Throat: Yes posterior oropharynx normal and No postnasal drainage Eyes General: appearance normal, both eyes and all related structures Neck Lymphatic: no lymphadenopathy noted Resp Effort & Inspection: able to speak in complete sentences, no audible wheezes, Actively coughing, respiratory effort not decreased and no nasal flaring Auscultation: no wheezes and diminished lung sounds on the right in the lower lung mustafa Cardio Rate: regular rate Rhythm: regular rhythm Skin General skin exam: no rashes or lesions noted Neuro General: patient oriented x3 Psych Appearance: grossly normal Mental Status: mental status grossly normal Insight: Good insight present (Psych) Judgement: Good judgement present (Psych) Office Meds acetaminophen 325 mg tablet Performing Provider: Magdalena Dias PA-C Performing Location: [facility] Administered by: Magdalena Dias PA-C on 12/25/24 09:35 Dose Route Admin Location Dispensed Lot Number Expiration Date [facility] Automobile 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 Assessment & Plan Assessment & Plan (1) Cough with fever: Comment: No acute findings noted on chest x-ray. Given this patient's presentation, patient will be discharged with Tamiflu. Code(s): R05.9 - Cough, unspecified; R50.9 - Fever, unspecified Plan: Tamiflu twice daily for 5 days, ibuprofen or Tylenol for fevers. Follow up for any worsening symptoms. Orders: Orders XR chest 2V Today R05.9 - Cough, unspecified, R50.9 - Fever, unspecified SARS-CoV2/FLU/RSV Today J06.9 - Acute upper respiratory infection, unspecified AMB Acetaminophen Adult Dose Today R05.9 - Cough, unspecified, R50.9 - Fever, unspecified Medications: New oseltamivir (Tamiflu) 75 mg PO BID 5 days 10 caps 0RF Coding Level of Care Code Est Pt Level 3 (60947) Diagnoses Cough with fever R05.9; R50.9 Time Spent (min) 25
[2024-12-25 09:01] VITALS: BP 122/80; PULSE 95; TEMP 38.3; O2SAT 98
== END 2024-12-25 09:46 | disposition home or self-care (01) ==
PROVIDERS: PCP Internal Medicine; Visit Provider Physician Assistant
DX: R05.9 Cough, unspecified (principal); R50.9 Fever, unspecified

== ENCOUNTER 2024-12-25 08:05 | Outpatient (REF) | payer OTHER, SELFPAY ==
--- NOTE | ~2024-12-25 | XR_ITS ---
EXAMINATION: XR CHEST 2 VIEWS HISTORY: R05.9 - Cough, unspecified COMPARISON: Comparison is made with the prior examination dated 09/24/2020. FINDINGS: PA and lateral views of the chest are submitted. There is minimal subsegmental atelectasis versus scarring in the lingula. The lungs are otherwise clear. There is no pleural effusion, pneumothorax, or pulmonary vascular congestion. The heart is normal in size. There is degenerative disc disease of the spine. XR/XR chest 2V IMPRESSION: Minimal subsegmental atelectasis versus scarring in the lingula. Electronically signed by: Vinh Coronado MD 12/25/2024 09:54 AM [facility] [place]
--- OUTSIDE RECORDS SUMMARY | 2024-12-25 09:57 | XMS_ITS | Clinical Summary ---
Author Organization [facility] Address [address] [place] [address] Care Team Providers Care Carpentry Teacher Name Role Phone Unavailable Primary Care Provider [...]
== END 2024-12-25 08:06 | disposition home or self-care (01) ==
LOC: HO.HMGCX 08:05
PROVIDERS: PCP Internal Medicine; Visit Provider Physician Assistant
DX: R50.9 Fever, unspecified (principal); R05.9 Cough, unspecified
CPT/HCPCS: 71046

== ENCOUNTER 2024-12-25 08:05 | Outpatient (REF) | payer OTHER, SELFPAY ==
--- OUTSIDE RECORDS SUMMARY | 2024-12-25 10:56 | XMS_ITS | Clinical Summary ---
Author Organization [facility] Address [address] [place] [address] Care Team Providers Care Industrial Safety And Health Specialist Name Role Phone Unavailable Primary Care Provider [...]
[2024-12-25 12:38] LABS: Influenza A PCR POSITIVE (Negative); Influenza B PCR NEGATIVE (Negative); Resp Syncy Virus RNA Qual PCR NEGATIVE (Negative); SARS COV2 PCR INHOUSE NEGATIVE (Negative)
== END 2024-12-25 08:06 | disposition home or self-care (01) ==
LOC: HO.LNP 08:05
PROVIDERS: Visit Provider Physician Assistant
DX: J06.9 Acute upper respiratory infection, unspecified (principal)
CPT/HCPCS: 0241U

== ENCOUNTER → 2024-12-25 09:29 | Outpatient (BNV) | payer OTHER, SELFPAY | PROVIDERS: PCP Internal Medicine; Visit Provider Radiology Diagnostic Radiology | DX: J98.11 Atelectasis (principal) | CPT/HCPCS: 71046 ==

== ENCOUNTER 2025-01-18 11:49 | Outpatient (AMB) | payer OTHER, SELFPAY ==
--- NOTE | 2025-01-18 11:58 | AM.OFFWIN_ITS ---
Intake Vital Signs 01/18/25 11:59 Weight 199 lb BP 130/80 Blood Pressure Location Lt brachial Position Sitting Pulse 77 Pulse Source Pulse Oximeter Pulse Oximetry (%) 97 Oxygen Delivery Method Room Air Intake Visit Reasons: EP hands locking up/stiffness Intake Note: Patient here for hand stiffness that has been present for almost 3 weeks. Patient Tobacco Use Status: Never used Tobacco Allergies Penicillins [PENICILLINS] Allergy (Unknown, Verified 01/18/25 11:58) Rash Do you need a note to return to daycare/school/sports/work: Yes HPI HPI Comments History of Present Illness Details This is a 59-year-old female who presented to the walk-in clinic complaining of left hand pain and left wrist swelling for the past 2 weeks. Patient denies any known trauma or injury to the area. She states that her left hand/fingers occasionally stiffen/lock and she gets shooting pain radiating from her fingers up her arm with certain movements. She states this has happened to her once in the past several years ago she was diagnosed with osteoarthritis but she has not seen an electrical system specialist for this problem. She denies any numbness/weakness/paresthesias of her hand, wrist, or arm. She states that she has been dropping objects at work because the pain will happened suddenly and her hand will stiffen/lock causing her to drop items. [facility] Medical History Left ankle pain Overweight Annual physical exam Osteoarthritis, knee Surgical History Hx of colonoscopy Family History Father Hypertension Diabetes Throat cancer Mother Diabetes Breast cancer Brother Substance use disorder Social History Housing: House Alcohol intake: never Patient Tobacco Use Status: Never used Tobacco e-Cigarette/Vaping Use: Never Used Current occupational status: employed Cognitive needs: No Hearing needs: No Vision needs: Yes Review of Systems Const All systems reviewed & are unremarkable except as noted in HPI and below Reports no additional complaints Eyes Reports no additional complaints ENT Reports no additional complaints Card Reports no additional complaints Resp Reports no additional complaints GI Reports no additional complaints Reports no additional complaints Musc Reports no additional complaints Skin/Breast Reports system reviewed and no additional complaints, except as documented Neuro Reports no additional complaints Psych Reports no additional complaints Endo Reports no additional complaints Alex/Lymph Reports no additional complaints Aller/Immun Reports no additional complaints Physical Exam Vital Signs: Last Vital Signs Pulse 77 01/18/25 11:59 BP 130/80 01/18/25 11:59 Pulse Ox 97 01/18/25 11:59 Oxygen Delivery Method Room Air 01/18/25 11:59 Const Other: Vital signs reviewed. Constitutional: Non-toxic appearing. No acute distress. Well-developed and well-nourished. HEENT: Normocephalic and atraumatic. Skin: Warm and dry. No rashes or lesions noted. Neck: Full and painless range of motion. No cervical lymphadenopathy. Cardio: Regular rate. No lower extremity edema. No JVD. Pulmonary: No respiratory distress. No accessory muscle usage. Gastrointestinal: Soft, non-tender, and non-distended in all 4 quadrants. Musculoskeletal: There is mild swelling of the left wrist when compared to the right wrist but no swelling of the MCP joints or fingers. She has diffuse tenderness to palpation of the left [facility] joint and MCP joint as well as the left wrist without any tenderness to palpation extending up the forearm or into the shoulder. She has full range of motion with flexion/extension of the fingers and flexion/extension of the left wrist although this does cause shooting pain. Neuro: Alert and oriented x4. Cranial nerves 2-12 grossly intact. No focal deficits appreciated. Psych: Normal mood and affect. Assessment & Plan Assessment & Plan (1) Pain in left hand: Code(s): M79.642 - Pain in left hand Plan: This is a 59-year-old female who presented to the walk-in clinic complaining of atraumatic left hand/wrist pain/swelling/stiffness for the past 2 weeks. Differential diagnosis includes osteoarthritis versus inflammatory arthritis versus neuropathy. Low suspicion for fracture/dislocation given no trauma/injury and no focal tenderness to palpation. No evidence of acute gouty arthritis. Patient was given a referral to orthopedics for further evaluation. She was also given a prescription for PO meloxicam 15 mg daily for anti-inflammatory treatment. Patient should continue with supportive management including activity modification, ice to the area, and elevation of the extremity. Patient advised to follow-up here for persistent/worsening symptoms. Patient verbalized understanding and is agreeable with the plan. Orders: Referrals Orthopedics Referral M79.641 - Pain in right hand Medications: New meloxicam Do not take with ibuprofen. 15 mg PO DAILY 14 tabs 0RF Coding Level of Care Code Est Pt Level 3 (27196) Diagnoses Pain in left hand M79.645
[2025-01-18 11:59] VITALS: BP 130/80; PULSE 77; O2SAT 97
--- OUTSIDE RECORDS SUMMARY | 2025-01-18 14:08 | XMS_ITS ---
Author Organization [employer] Address [employer] [facility] [address] [place] [address] Care Team Providers Care Superintendent Terminal Name Role Phone Olga Mckeon MD Primary Care Provider JONATHAN Peres Unavailable [phone] REASON FOR VISIT New Screening Breast U/S Order Encounters Encounter Location Date Provider Diagnosis [facility] [employer] [address] [address] 08/09/2024 JONATHAN HOPE Inconclusive mammogr am R92.2 [...] Provider Name:JONATHAN Myers, 06/17/2025 08:30:00 AM, [address] [facility], [address], [place], [address], Progress Notes * ROSITA THOMAS:1965 ( 58 yo F)Acc No.[id number]:08/09/2024 Patient:?WILLIAMIRISHREMBERTO :1965???Age:58 Y???Sex:Female Address:[address] [place] [address] [place], [address] Subjective: * Chief Complaints: * ???New Screening [...] true * Date:? Generated for Shelby nolen/Ricky/Marleyitting on:?01/18/2025 02:08 PM EST
--- OUTSIDE RECORDS SUMMARY | 2025-01-18 14:08 | XMS_ITS | Clinical Summary ---
Author Organization [facility] Address [address] [place] [address] Care Team Providers Care Sales Agent Financial Report Service Name Role Phone Unavailable Primary Care Provider [...]
--- OUTSIDE RECORDS SUMMARY | 2025-01-18 14:09 | XMS_ITS ---
Author Organization [employer] Address [address] [place] [address] Care Team Providers Care Teacher Of The Deaf Name Role Phone Olga Mckeon MD Primary Care Provider JONATHAN Peres Unavailable [phone] Allergies Allergen (clinical drug ingredient) Drug/Non Drug Allergy documented on EMR Reaction Allergy Type Onset Date Status penicillin G Penicillin G Sodium Immunodeficiency Drug Allergy Active REASON FOR VISIT Annual PAEDODONTIST Physical Medications Medication SIG (Take, Route, Fr [...] Status W/U Status Risk Notes Problem COVID-19 (414120743) COVID-19 (U07.1) Active confirmed Vital Signs Temperature 96.8 degrees Fahrenheit 06/12/20 24 Blood pressure systolic 122 mm Hg 06/12/20 24 Blood pressure diastolic 76 mm Hg 024 Height 60 in 06/12/2024 Weight 196 lbs 06/12/2024 BMI 38.27 kg/m2 06/12/2024 Encounters Encounter Location Date Provider Diagnosis [facility] [address] [place] [address] 06/12/2024 JONATHAN HOPE Encounter for gynecological examination [...] Follow Up: 1 Year, Reason: Y early Sock Boarder Exam Provider Name:JONATHAN MILLER Louis, 06/17/2025 08:30:00 AM, [address], [address], [place], [address], Progress Notes * SG THOMASADOB:1965 ( 58 yo F)Acc No.[id number]:06/12/2024 PROGRESS NOTES Patient:?ADILIA THOMAS Provider:?JONATHAN HOPE MD :1965???Age:58 Y???Sex:Female D ate:06/12/2024 Address:[address] [place] [address], [facility] Pcp:Olga Mckeon MD Subjective: * Chief Complaints: * ???Annual PAEDODONTIST Physical * HPI: ???Constitutional:?Adilia is a 58yo G0 who presents for her yearly medical assistant ob gyn exam.? She has been in state of good health since her last exam. She has the following concerns: none She had a suprise democrat to celebrate her 58th. She has received the [employer] Covid-19 vaccine. Relationship status: single. She is [...] walking and a YouTube video. * ROS:?Annual Sock Boarder Exam ROS:?Bowel habit changes?denies.?Bladder symptoms?denies.?Vaginal discharge, unusual?denies.?Vaginal itch or odor?denies.?weight or appetite changes?denies.?Chest pains, SOB?denies.?depression?denies.?Breast:?Denies?Breast lump.?Denies?Nipple discharge.?Hematology:?Denies?Swollen glands.?Skin:?Patient denies?changing moles.?Psychiatric:?Denies?Anxiety.? * Medical History:? * Sock Boarder History:?/ Para?0/0.?Sexual activity?not currently sexually active.?Last Pap Smear:?06/14/22 NIL, NEG HPV, 11/07/17 NIL, NEG HRHPV, 05/2015.?Mammogram:?12/10/23 50-75% density, 10/20/21 - 50-75% density, Right Breast Ultrasound, 06/21/20 50-75% density, 11/23/18 Diagnostic 50-75% density, Needs 6 month follow up.02/2015.?LMP and menses?menopause.?Menopause: ?Began at age: ?49 ???Colonoscopy?07/01/222012.? * OB History:?Total pregnancies?0.? * Surgical History:?Lt Oophore ctomy 2008Abcess on buttocks [place] Teeth Oral Abcess in gums Left Foot-Fatty [...] ?Natural support system: yes. 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 ?Pets: none. ?Sexual abuse: no. ?Sexually active: [...] no acute distress, well developed, well nourished, machine set up operator present in room.?HEAD:?normocephalic, atraumatic.?NECK/THYROID:?neck supple, full range [...] muscle mass and strength. 'Sarco' is the Vincentian word referring to flesh, and 'penia' means [...] * Follow Up:?1 Year (Reason: Y early Sock Boarder Exam) * Images: Billing Information: * Visit Code:? 75082 Preventive Care Est Pt. Age 40-64. * Procedure Codes:? * Sign off status: Completed true * Provider:?JONATHAN HOPE MD Date:?2023 Generated for Shelby nolen/Ricky/Michelineransmitting on:?01/18/2025 02:08 PM EST History and Physical Notes * HPI (History of Present Illness) Category Sub-Category Detail Notes Category Not es Constitutional Adilia is a 58yo G0 who presents for her yearly medical assistant ob gyn exam. She has been in state of good health since her last exam. She has the following concerns: none She had a suprise democrat to celebrate her 58th. She has received [...] General Examination GENERAL APPEARANCE: in no ac [place] distress, well developed, well nourished, machine set up operator present in room HEAD: normocephalic, atrau matic [...]
--- OUTSIDE RECORDS SUMMARY | 2025-01-18 14:09 | XMS_ITS ---
Author Organization [facility] [employer] Address [address] [place] [address] [address] [place] [address] Care Team Providers Care Commercial Lease Administrator Name Role Phone Olga Mckeon MD Primary Care Provider JONATHAN Peres [phone] REASON FOR VISIT New order for screen u/s Encounters Encounter Location Date Provider Diagnosis [facility] [address] [place] [address] [address] [place] [address] 06/13/2024 JONATHAN HOPE Inconclusive mammogr am R92.2 Assessments Encounter Date Diagnosis (ICD Code) Assessment Notes Treatment Notes Treatment Clinical Notes Section Notes 06/13/2024 Inconclusive mammogram (ICD-10 - R92.2) Plan Of Treatment Pending Test Test Name Order Date Screening Bilateral Breast Ultrasound Next Appt Details Provider Name:JONATHAN Myers, 06/17/2025 08:30:00 AM, [address] [place] [address], [address], [place], [address], Progress Notes * MARLENA THOMASB:1965 ( 58 yo F)Acc No.[id number]:06/13/2024 Patient:?WILLIAM REMBERTO :1965???Age:58 Y???Sex:Female Address:[address] [place] [address] [facility] [place] [place] [address] Subjective: * Chief Complaints: * ???New order for screen u/s * Medical History:? * Surgical History:? * Hospitalization/Major Diagno stic Procedure:? * Medications:? Objective: * Vitals:? * Physical Examination:? Assessment: * Assessment: 1.?Inconclusive mammogram - R92.2 (Primary)??? Plan: * Treatment: * Procedure Codes:? * true * Date:? Generated for Shelby nolen/Ricky/Spike on:?01/18/2025 02:08 PM EST
--- OUTSIDE RECORDS SUMMARY | 2025-01-18 14:09 | XMS_ITS | Patient Health Record ---
Author Organization [employer] [facility] Address [address] [address] Care Team Providers Care Submersible Pilot Name Role Phone Olga Mckeon MD Primary Care Provider JONATHAN Peres Unavailable [phone] Allergies Allergen (clinical drug ingredient) Drug/Non Drug [...] Status Risk Notes Problem Postmenopausal atrophic vaginitis (64752442) Postmenopausal atrophic vaginitis (N95.2) Active confirmed Problem SI - Stress incontinence (25669532) Stress incontinence (female) (male) (N39.3) Active confirmed Problem Postmenopausal bleeding (67820530) Postmenopausal bleeding (N95.0) Active confirmed Problem Urinary incontinence (796248530) Other specified urinary incontinence (N39.498) Active confirmed Problem COVID-19 (396962604) COVID-19 (U07.1) Active confirmed Vital Signs Temperature 96.8 degrees Fahrenheit 06/12/2024 Blood pressure diastolic 76 mm Hg 06/12/2024 Height 60 in 06/12/2024 Blood pressure systolic 122 mm Hg 06/12/2024 Weight 196 lbs 06/12/2024 BMI 38.27 kg/m2 06/12/2024 Encounters Encounter Location Date Provider Diagnosis [address] [employer] [address] [address] 06/12/2024 JONATHAN HOPE Encounter for gynecological examination (general) (routine) without abnormal findings Z01.419 ; Encounter for screening mammogram for malignant neoplasm of breast Z12.31 ; Inconclusive mammogram R92.2 ; Dense breasts, unspecified R92.30 and Family history of malignant neoplasm of breast Z80.[address] [address] 06/13/2024 JONATHAN HOPE Inconclusive mammogr am R92.[address] [address] 08/09/2024 JONATHAN HOPE Inconclusive mammogr am R92.2 [...] Provider Name:JONATHAN Myers, 06/17/2025 08:30:00 AM, [address] [facility], [address], [place], [address], Insurance Providers Payer Name Payer Address Payer Phone Subscriber Number Group Number Insured Name Patient Relationship to Insured Coverage Start Date Coverage End Date [facility] [address] [place] [address] [phone] [id number] REMBERTO THOMAS Self - patient is the insured 3 Medical (General) History Medical History History ICD Code Arthritis Postmenopausal atrophic vaginitis N95.2 Other signs and symptoms in breast N64.5 9 Inconclusive mammogram R92.2 Disorder of breast, unspecified N64.9 Headache R51 Pelvic and perineal pain R10.2 Postmenopausal bleeding N95.0 COVID-19 U07.1 Surgical History Surgery Date(Month/Year) Lt Oophorectomy 2007 Abcess on buttocks [place] Teeth Oral Abcess in gums Left Foot-Fatty Tissue removal near grea t toe 05/09/23 Hospitalization History Reason Date(Month/Year) See Surgical Hx Anxiety Attack
== END 2025-01-18 12:38 | disposition home or self-care (01) ==
PROVIDERS: PCP Internal Medicine; Visit Provider Physician Assistant Medical
DX: M79.642 Pain in left hand (principal)

== ENCOUNTER 2025-03-06 07:53 | Outpatient (REF) | payer OTHER, SELFPAY ==
--- OUTSIDE RECORDS SUMMARY | 2025-03-06 07:57 | XMS_ITS | Clinical Summary ---
Author Organization [facility] Address [address] [place] [address] Care Team Providers Care Technical Intern Name Role Phone Unavailable Primary Care Provider Unavailabl e Social History Tobacco Use Types Packs/Day Years Used Date Smoking Tobacco: Never Assessed Comments Unknown Sex and Gender Information Value Date Recorded Sex Assigned at Not on file Legal Sex Female 10:35 PM EDT Gender Identity Not on file Sexual Orientation [...]
--- OUTSIDE RECORDS SUMMARY | 2025-03-06 07:57 | XMS_ITS ---
Author Organization [employer] Address [employer] [facility] [address] [place] [address] Care Team Providers Care Velvet Cutter Name Role Phone Olga Mckeon MD Primary Care Provider JONATHAN Peres Unavailable [phone] REASON FOR VISIT New Screening Breast U/S Order Encounters Encounter Location Date Provider Diagnosis [facility] [employer] [address] [address] 08/09/2024 JONATHAN HOPE Inconclusive mammogr am R92.2 [...] Provider Name:JONATHAN Myers, 06/17/2025 08:30:00 AM, [address] [employer] [facility], [address], [place], [address], Progress Notes * ROSITA THOMAS:1965 ( 58 yo F)Acc No.[id number]:08/09/2024 Patient:?WILLIAMIRISHREMBERTO :1965???Age:58 Y???Sex:Female Address:[address] [place] [address] [place], [address] Subjective: * Chief Complaints: * ???New Screening [...] true * Date:? Generated for Shelby nolen/Ricky/Marleyitting on:?03/06/2025 07:57 AM EDT
--- OUTSIDE RECORDS SUMMARY | 2025-03-06 07:57 | XMS_ITS ---
Author Organization [employer] Address [address] [place] [address] Care Team Providers Care Test And Research Reactor Operator Name Role Phone Olga Mckeon MD Primary Care Provider JONATHAN Peres Unavailable [phone] Allergies Allergen (clinical drug ingredient) Drug/Non Drug Allergy documented on EMR Reaction Allergy Type Onset Date Status penicillin G Penicillin G Sodium Immunodeficiency Drug Allergy Active REASON FOR VISIT Annual DYNAMOMETER TESTER Physical Medications Medication SIG (Take, Route, Fr [...] Status W/U Status Risk Notes Problem COVID-19 (978240933) COVID-19 (U07.1) Active confirmed Vital Signs Temperature 96.8 degrees Fahrenheit 06/12/20 24 Blood pressure systolic 122 mm Hg 06/12/20 24 Blood pressure diastolic 76 mm Hg 024 Height 60 in 06/12/2024 Weight 196 lbs 06/12/2024 BMI 38.27 kg/m2 06/12/2024 Encounters Encounter Location Date Provider Diagnosis [facility] [address] [place] [address] 06/12/2024 JONATHAN HOPE Encounter for gynecological examination [...] Follow Up: 1 Year, Reason: Y early Cnc Specialist Exam Provider Name:JONATHAN MILLER Louis, 06/17/2025 08:30:00 AM, [address], [address], [place], [address], Progress Notes * SG THOMASADOB:1965 ( 58 yo F)Acc No.[id number]:06/12/2024 PROGRESS NOTES Patient:?REMBERTO THOMAS Provider:?JONATHAN HOPE MD :1965???Age:58 Y???Sex:Female D ate:06/12/2024 Address:[address] [place] [address], [id number] Pcp:Olga Mckeon MD Subjective: * Chief Complaints: * ???Annual DYNAMOMETER TESTER Physical * HPI: ???Constitutional:?Remberto is a 58yo G0 who presents for her yearly face man exam.? She has been in state of good health since her last exam. She has the following concerns: none She had a suprise constitution party to celebrate her 58th. She has received the [employer] Covid-19 vaccine. Relationship status: single. She is [...] walking and a YouTube video. * ROS:?Annual Cnc Specialist Exam ROS:?Bowel habit changes?denies.?Bladder symptoms?denies.?Vaginal discharge, unusual?denies.?Vaginal itch or odor?denies.?weight or appetite changes?denies.?Chest pains, SOB?denies.?depression?denies.?Breast:?Denies?Breast lump.?Denies?Nipple discharge.?Hematology:?Denies?Swollen glands.?Skin:?Patient denies?changing moles.?Psychiatric:?Denies?Anxiety.? * Medical History:? * Cnc Specialist History:?/ Para?0/0.?Sexual activity?not currently sexually active.?Last Pap Smear:?06/14/22 NIL, NEG HPV, 11/07/17 NIL, NEG HRHPV, 05/2015.?Mammogram:?12/10/23 50-75% density, 10/20/21 - 50-75% density, Right Breast Ultrasound, 06/21/20 50-75% density, 11/23/18 Diagnostic 50-75% density, Needs 6 month follow up.02/2015.?LMP and menses?menopause.?Menopause: ?Began at age: ?49 ???Colonoscopy?07/01/222012.? * OB History:?Total pregnancies?0.? * Surgical History:?Lt Oophore ctomy 2008Abcess on buttocks [place] Teeth Oral Abcess in gums Left Foot-Fatty [...] ?Natural support system: yes. 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 ?Pets: none. ?Sexual abuse: no. ?Sexually active: [...] no acute distress, well developed, well nourished, attorney at law present in room.?HEAD:?normocephalic, atraumatic.?NECK/THYROID:?neck supple, full range [...] muscle mass and strength. 'Sarco' is the Guatemalan word referring to flesh, and 'penia' means [...] * Follow Up:?1 Year (Reason: Y early Cnc Specialist Exam) * Images: Billing Information: * Visit Code:? 80802 Preventive Care Est Pt. Age 40-64. * Procedure Codes:? * Sign off status: Completed true * Provider:?JONATHAN HOPE MD Date:?2023 Generated for Shelby nolen/Ricky/eTransmitting on:?03/06/2025 07:57 AM EDT History and Physical Notes * HPI (History of Present Illness) Category Sub-Category Detail Notes Category Not es Constitutional Remberto is a 58yo G0 who presents for her yearly face man exam. She has been in state of good health since her last exam. She has the following concerns: none She had a suprise constitution party to celebrate her 58th. She has received [...] General Examination GENERAL APPEARANCE: in no ac hoh distress, well developed, well nourished, attorney at law present in room HEAD: normocephalic, atrau matic [...]
--- OUTSIDE RECORDS SUMMARY | 2025-03-06 07:58 | XMS_ITS ---
Author Organization [facility] Address [address] [place] [address] [address] [place] [address] Care Team Providers Care Mammographer Name Role Phone Olga Mckeon MD Primary Care Provider JONATHAN Peres [phone] REASON FOR VISIT New order for screen u/s Encounters Encounter Location Date Provider Diagnosis [facility] [address] [place] [address] [address] [place] [address] 06/13/2024 JONATHAN HOPE Inconclusive mammogr am R92.2 Assessments Encounter Date Diagnosis (ICD Code) Assessment Notes Treatment Notes Treatment Clinical Notes Section Notes 06/13/2024 Inconclusive mammogram (ICD-10 - R92.2) Plan Of Treatment Pending Test Test Name Order Date Screening Bilateral Breast Ultrasound Next Appt Details Provider Name:JONATHAN Myers, 06/17/2025 08:30:00 AM, [address] [place] [address], [address], [place], [address], Progress Notes * MARLENA THOMASB:1965 ( 58 yo F)Acc No.[id number]:06/13/2024 Patient:?WILLIAM REMBERTO :1965???Age:58 Y???Sex:Female Address:[address] [place] [address] [facility] [place] [address] Subjective: * Chief Complaints: * ???New order for screen u/s * Medical History:? * Surgical History:? * Hospitalization/Major Diagno stic Procedure:? * Medications:? Objective: * Vitals:? * Physical Examination:? Assessment: * Assessment: 1.?Inconclusive mammogram - R92.2 (Primary)??? Plan: * Treatment: * Procedure Codes:? * true * Date:? Generated for Shelby nolen/Ricky/Spike on:?03/06/2025 07:57 AM EDT
--- OUTSIDE RECORDS SUMMARY | 2025-03-06 07:58 | XMS_ITS | Patient Health Record ---
Author Organization [facility] Address [address] [address] Care Team Providers Care Moisture Meter Operator Name Role Phone Olga Mckeon MD Primary Care Provider JONATHAN Peres Unavailable [phone] Allergies Allergen (clinical drug ingredient) Drug/Non Drug [...] Status Risk Notes Problem Postmenopausal atrophic vaginitis (35347796) Postmenopausal atrophic vaginitis (N95.2) Active confirmed Problem SI - Stress incontinence (46954157) Stress incontinence (female) (male) (N39.3) Active confirmed Problem Postmenopausal bleeding (65153826) Postmenopausal bleeding (N95.0) Active confirmed Problem Urinary incontinence (544771205) Other specified urinary incontinence (N39.498) Active confirmed Problem COVID-19 (310207097) COVID-19 (U07.1) Active confirmed Vital Signs Temperature 96.8 degrees Fahrenheit 06/12/2024 Blood pressure diastolic 76 mm Hg 06/12/2024 Height 60 in 06/12/2024 Blood pressure systolic 122 mm Hg 06/12/2024 Weight 196 lbs 06/12/2024 BMI 38.27 kg/m2 06/12/2024 Encounters Encounter Location Date Provider Diagnosis [address] [employer] [address] [address] 06/12/2024 JONATHAN HOPE Encounter for gynecological examination (general) (routine) without abnormal findings Z01.419 ; Encounter for screening mammogram for malignant neoplasm of breast Z12.31 ; Inconclusive mammogram R92.2 ; Dense breasts, unspecified R92.30 and Family history of malignant neoplasm of breast Z80.[address] [address] 06/13/2024 JONATHAN HOPE Inconclusive mammogr am R92.[address] [address] 08/09/2024 JONATHAN HOPE Inconclusive mammogr am R92.2 [...] Provider Name:JONATHAN Myers, 06/17/2025 08:30:00 AM, [address] [facility], [address], [place], [address], Insurance Providers Payer Name Payer Address Payer Phone Subscriber Number Group Number Insured Name Patient Relationship to Insured Coverage Start Date Coverage End Date [facility] [address] [place] [address] [phone] [id number] REMBERTO THOMAS Self - patient is the insured 3 Medical (General) History Medical History History ICD Code Arthritis Postmenopausal atrophic vaginitis N95.2 Other signs and symptoms in breast N64.5 9 Inconclusive mammogram R92.2 Disorder of breast, unspecified N64.9 Headache R51 Pelvic and perineal pain R10.2 Postmenopausal bleeding N95.0 COVID-19 U07.1 Surgical History Surgery Date(Month/Year) Lt Oophorectomy 2007 Abcess on buttocks [place] Teeth Oral Abcess in gums Left Foot-Fatty Tissue removal near grea t toe 05/09/23 Hospitalization History Reason Date(Month/Year) See Surgical Hx Anxiety Attack
== END 2025-03-06 07:54 | disposition home or self-care (01) ==
LOC: HO.HOSX 07:53
DX: Z13.89 Encounter for screening for other disorder (principal)

== ENCOUNTER 2025-03-28 13:51 | Outpatient (AMB) | payer OTHER, SELFPAY ==
[2025-03-28 13:53] VITALS: BP 122/78; PULSE 76; RESP 18; TEMP 37.1; O2SAT 97; BMI 38.9
--- NOTE | 2025-03-28 13:53 | MHC.PC.OV ---
Vital Signs 03/28/25 13:53 Height 5 ft Weight 199 lb BMI 38.9 BP 122/78 Blood Pressure Location Lt brachial Position Sitting Respiration 18 Pulse 76 Pulse Source Pulse Oximeter Temp 98.8 F Temp Source Oral Pulse Oximetry (%) 97 Oxygen Delivery Method Room Air Intake Visit Reasons: PE Intake Note: Pt is here today for PE. Allergies Penicillins [PENICILLINS] Allergy (Unknown, Verified 03/28/25 13:59) Rash Tobacco use date assessed: 03/28/25 Dental Screening Dental Screen Date: 03/28/25 Did you have a dental visit in the last 12 months?: Yes Did you have a dental problem in the last 6 months where you did not have access to dental care?: No Was dental information given to patient?: Patient has dentist HPI PE HPI Details Patient presents for physical. She complains of chronic and severe left knee pain worse when walking. Knee x-rays showed severe osteoarthritis and patient like to be referred to orthopedic surgeon Dr. Vo [facility] Medical History (Updated 03/28/25 @ 14:26 by Olga Mckeon MD) Left ankle pain Overweight Annual physical exam Osteoarthritis, knee Surgical History (Updated 03/28/25 @ 14:02 by REED Hurley) Hx of foot surgery Hx of colonoscopy Family History Father Hypertension Diabetes Throat cancer Mother Diabetes Breast cancer Brother Substance use disorder Social History Housing: House Alcohol intake: never Patient Tobacco Use Status: Never used Tobacco e-Cigarette/Vaping Use: Never Used service: No Current occupational status: employed Cognitive needs: No Hearing needs: No Vision needs: Yes Questionnaire PHQ-9 Over the last 2 weeks, how often have you been bothered by any of the following problems? 1. Little interest or pleasure in doing things: not at all 2. Feeling down, depressed, or hopeless: not at all 3. Trouble falling or staying asleep, or sleeping too much: several days 4. Feeling tired or having little energy: more than half the days 5. Poor appetite or overeating: not at all 6. Feeling bad about yourself - or that you are a failure or have let yourself or your family down: not at all 7. Trouble concentrating on things, such as reading the newspaper or watching television: not at all 8. Moving or speaking so slowly that other people could have noticed. Or the opposite - being so fidgety or restless that you have been moving around a lot more than usual: not at all 9. Thoughts that you would be better off or of hurting yourself in some way: not at all Total score: 3 Depression Screening Interpretation: Negative Depression Screening Done: Yes 82521 - PHQ-9 Billing: Yes Source: Developed by Drs. Vinh Gaines, Riri Barnes, Roger Graham and colleagues, with an educational sarwat from [employer]. Thrive Questionnaire Date Thrive assessed: 03/28/25 I am a: Parent/Caregiver What is your living situation today?: I have a steady place to live Within the past 12 months, did the food you bought not last and you didn't have the money to get more?: I choose not to answer this question Within the past 12 months, did you worry whether your food would run out before you got money to buy more?: I choose not to answer this question Do you have trouble paying for medicines?: No Do you have trouble getting transportation to medical appointments?: No Do you have trouble paying your heating and electricity bill?: No Do you have trouble taking care of your child, family member or friend?: No Do you have trouble with day-to-day activities such as bathing, preparing meals, shopping, managing finances, etc.?: Yes Are you currently unemployed and looking for a job?: No Are you interested in more education?: No Please select the resources that you would like help with: None Currently or been in a relationship where the following occur: I choose not to answer THRIVE Score: 0 AUDIT C Alcohol Use Questionnaire (AUDIT-C) 1. How often do you have a drink containing alcohol?: Never 3. How often do you have six or more drinks on one occasion?: Never Total Score: 0 NING-7 AMB Questionnaire NING-7 Date NING - 7 assessed: 03/28/25 Feeling nervous, anxious, or on edge: 0 = Not at all Not being able to stop or control worryin = Not at all Worrying too much about different things: 0 = Not at all Trouble relaxin = Not at all Being so restless that it is hard to sit still: 0 = Not at all Becoming easily annoyed or irritable: 0 = Not at all Feeling afraid as if something awful might happen: 0 = Not at all Total NING-7 score (0-4 normal; 5-9 mild; 10-14 moderate; 15-21 severe): 0 Source: Developed by Drs. Vinh Gaines, Riri Barnes, Roger Graham and colleagues, with an educational sarwat from [employer]. NING-7 Assessment Billing NING-7 Assessment Tool: NING-7 Assessment 20822 Review of Systems Const All systems reviewed & are unremarkable except as noted in HPI and below Eyes Reports no additional complaints ENT Reports no additional complaints Card Reports no additional complaints Resp Reports no additional complaints GI Reports no additional complaints Reports no additional complaints Physical exam (Primary Care) Vital Signs: Last Vital Signs Temp 98.8 F 03/28/25 13:53 Pulse 76 03/28/25 13:53 Resp 18 03/28/25 13:53 BP 122/78 03/28/25 13:53 Pulse Ox 97 03/28/25 13:53 Oxygen Delivery Method Room Air 03/28/25 13:53 BMI result Body Mass Index 38.9 Tobacco/Smoking Status: Tobacco use Status Tobacco use date assessed 03/28/25 03/28/25 14:06 Patient Tobacco Use Status Never used Tobacco 03/28/25 14:06 e-Cigarette/Vaping Use Never Used 03/28/25 13:56 PHQ-9: PHQ-9 Score PHQ-9: Total score 3 03/28/25 14:06 Depression Screening Interpretation: Negative Thrive Assessment: Date of Thrive Assessment Date Thrive assessed 03/28/25 03/28/25 13:56 Currently or been in a relationship where the following occur: I choose not to answer Const General: no acute distress HENMT Head: Yes normal to inspection Ears: hearing grossly normal bilaterally Face and sinus: Yes normal facial exam Mouth: Normal oral and palatal mucosa present Eyes General: appearance normal, both eyes and all related structures Neck Neck: Yes no lymphadenopathy and Yes supple Resp Effort & Inspection: normal respiratory effort Auscultation: clear to auscultation bilaterally Cardio Rhythm: regular rhythm Heart sounds: S1 normal heart sound present and S2 normal heart sound present GI Inspection: Yes normal to inspection Palpation (GI): Soft to palpation Percussion: Yes normal to percussion Auscultation: normal bowel sounds Coding Level of Care Code Est Pt Prev Care 40-64y(55218) Diagnoses Osteoarthritis of left knee M17.12 Annual physical exam Z00.00 Overweight E66.3 Additional Codes NING-7 Assessment Billing - NING-7 Assessment Tool: NING-7 Assessment 31057 ([id number]) PHQ-9 - 22264 - PHQ-9 Billing: Yes ([id number]) Assessment & Plan Assessment & Plan (1) Osteoarthritis of left knee: Code(s): M17.12 - Unilateral primary osteoarthritis, left knee Category: Medical Plan: refer to Dr. Vo (2) Annual physical exam: Code(s): Z00.00 - Encounter for general adult medical examination without abnormal findings Category: Medical Plan: Well-balanced diet regular exercise, weight loss discussed with the pt, she is up-to-date with the mammogram and pelvic exam by corporate intern. Patient is due for colonoscopy and will be referred to GI. Patient will return for fasting blood work (3) Overweight: Code(s): E66.3 - Overweight Category: Medical Plan: BMI is 38.9, decreasing caloric intake increasing physical activity weight loss discussed with the patient Orders: Orders Comprehensive Wana. Panel Fast 1 Year E66.3 - Overweight, Z00.00 - Encounter for general adult medical examination without abnormal findings Lipid Panel 1 Year E66.3 - Overweight, Z00.00 - Encounter for general adult medical examination without abnormal findings Vitamin D 25-OH Total 1 Year E66.3 - Overweight, Z00.00 - Encounter for general adult medical examination without abnormal findings Hemoglobin A1c 1 Year E66.3 - Overweight, Z00.00 - Encounter for general adult medical examination without abnormal findings Comprehensive Wana. Panel Fast Today Z00.00 - Encounter for general adult medical examination without abnormal findings Lipid Panel Today Z00.00 - Encounter for general adult medical examination without abnormal findings Complete Blood Count Auto Diff Today Z00.00 - Encounter for general adult medical examination without abnormal findings TSH reflex Free T4 Today Z00.00 - Encounter for general adult medical examination without abnormal findings Vitamin D 25-OH Total Today Z00.00 - Encounter for general adult medical examination without abnormal findings Hemoglobin A1c Today Z00.00 - Encounter for general adult medical examination without abnormal findings Complete Blood Count Auto Diff 1 Year E66.3 - Overweight, Z00.00 - Encounter for general adult medical examination without abnormal findings TSH reflex Free T4 1 Year E66.3 - Overweight, Z00.00 - Encounter for general adult medical examination without abnormal findings Referrals Orthopedics Referral M17.12 - Unilateral primary osteoarthritis, left knee Gastroenterology Referral Z00.00 - Encounter for general adult medical examination without abnormal findings
--- OUTSIDE RECORDS SUMMARY | 2025-03-28 14:46 | XMS_ITS ---
Author Organization [employer] Address [address] [place] [address] Care Team Providers Care Guest Service Agent Name Role Phone Olga Mckeon MD Primary Care Provider JONATHAN Peres Unavailable [phone] Allergies Allergen (clinical drug ingredient) Drug/Non Drug Allergy documented on EMR Reaction Allergy Type Onset Date Status penicillin G Penicillin G Sodium Immunodeficiency Drug Allergy Active REASON FOR VISIT Annual LINESPERSON Physical Medications Medication SIG (Take, Route, Fr [...] Status W/U Status Risk Notes Problem COVID-19 (161476610) COVID-19 (U07.1) Active confirmed Vital Signs Temperature 96.8 degrees Fahrenheit 06/12/20 24 Blood pressure systolic 122 mm Hg 06/12/20 24 Blood pressure diastolic 76 mm Hg 024 Height 60 in 06/12/2024 Weight 196 lbs 06/12/2024 BMI 38.27 kg/m2 06/12/2024 Encounters Encounter Location Date Provider Diagnosis Total [address] [place] [address] 06/12/2024 JONATHAN HOPE Encounter for gynecological examination [...] Follow Up: 1 Year, Reason: Y early Forms Examiner Exam Provider Name:JONATHAN MILLER Louis, 06/17/2025 08:30:00 AM, [address], [address], [place], [address], Progress Notes * SG THOMASADOB:1965 ( 58 yo F)Acc No.[id number]:06/12/2024 PROGRESS NOTES Patient:?REMBERTO THOMAS Provider:?JONATHAN HOPE MD :1965???Age:58 Y???Sex:Female D ate:06/12/2024 Address:[address] [place] [address], [facility] Pcp:Olga Mckeon MD Subjective: * Chief Complaints: * ???Annual LINESPERSON Physical * HPI: ???Constitutional:?Remberto is a 58yo G0 who 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 She has been in state of good health since her last exam. She has the following concerns: none She had a suprise alliance party to celebrate her 58th. She has received the Videdressing Covid-19 vaccine. Relationship status: single. She is [...] walking and a YouTube video. * ROS:?Annual Forms Examiner Exam ROS:?Bowel habit changes?denies.?Bladder symptoms?denies.?Vaginal discharge, unusual?denies.?Vaginal itch or odor?denies.?weight or appetite changes?denies.?Chest pains, SOB?denies.?depression?denies.?Breast:?Denies?Breast lump.?Denies?Nipple discharge.?Hematology:?Denies?Swollen glands.?Skin:?Patient denies?changing moles.?Psychiatric:?Denies?Anxiety.? * Medical History:? * Forms Examiner History:?/ Para?0/0.?Sexual activity?not currently sexually active.?Last Pap Smear:?06/14/22 NIL, NEG HPV, 11/07/17 NIL, NEG HRHPV, 05/2015.?Mammogram:?12/10/23 50-75% density, 10/20/21 - 50-75% density, Right Breast Ultrasound, 06/21/20 50-75% density, 11/23/18 Diagnostic 50-75% density, Needs 6 month follow up.02/2015.?LMP and menses?menopause.?Menopause: ?Began at age: ?49 ???Colonoscopy?07/01/222012.? * OB History:?Total pregnancies?0.? * Surgical History:?Lt Oophore ctomy 2008Abcess on buttocks [place] Teeth Oral Abcess in gums Left Foot-Fatty [...] ?Natural support system: yes. 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 ?Pets: none. ?Sexual abuse: no. ?Sexually active: [...] no acute distress, well developed, well nourished, supervisor blast furnace auxiliaries present in room.?HEAD:?normocephalic, atraumatic.?NECK/THYROID:?neck supple, full range [...] muscle mass and strength. 'Sarco' is the Lao word referring to flesh, and 'penia' means [...] * Follow Up:?1 Year (Reason: Y early Forms Examiner Exam) * Images: Billing Information: * Visit Code:? 75112 Preventive Care Est Pt. Age 40-64. * Procedure Codes:? 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 She has been in state of good health since her last exam. She has the following concerns: none She had a suprise alliance party to celebrate her 58th. She has [...] General Examination GENERAL APPEARANCE: in no ac circle distress, well developed, well nourished, supervisor blast furnace auxiliaries present in room HEAD: normocephalic, atrau matic [...]
--- OUTSIDE RECORDS SUMMARY | 2025-03-28 14:46 | XMS_ITS ---
Author Organization [employer] Address [facility] [address] [place] [address] Care Team Providers Care Marketing Professor Name Role Phone Olga Mckeon MD Primary Care Provider JONATHAN Peres Unavailable [phone] REASON FOR VISIT New Screening Breast U/S Order Encounters Encounter Location Date Provider Diagnosis [facility] [address] [address] 08/09/2024 JONATHAN HOPE Inconclusive mammogr am R92.2 [...] Provider Name:JONATHAN Myers, 06/17/2025 08:30:00 AM, [address] [facility], [address], [place], [address], Progress Notes * ROSITA THOMAS:1965 ( 58 yo F)Acc No.[id number]:08/09/2024 Patient:?WILLIAMIRISHREMBERTO :1965???Age:58 Y???Sex:Female Address:[address] [place] [address] [place], [address] Subjective: * Chief Complaints: * ???New Screening [...] true * Date:? Generated for Shelby nolen/Ricky/Marleyitting on:?03/28/2025 02:46 PM EDT
--- OUTSIDE RECORDS SUMMARY | 2025-03-28 14:46 | XMS_ITS | Clinical Summary ---
Author Organization [facility] Address [address] [place] [address] Care Team Providers Care Security Advisor Name Role Phone Unavailable Primary Care Provider [...]
--- OUTSIDE RECORDS SUMMARY | 2025-03-28 14:47 | XMS_ITS ---
Author Organization [facility] Address [address] [place] [address] [address] [place] [address] Care Team Providers Care Multi Disciplined Language Analyst Name Role Phone Olga Mckeon MD Primary Care Provider JONATHAN Peres [phone] REASON FOR VISIT New order for screen u/s Encounters Encounter Location Date Provider Diagnosis [facility] [address] [place] [address] [address] [place] [address] 06/13/2024 JONATHAN HOPE Inconclusive mammogr am R92.2 Assessments Encounter Date Diagnosis (ICD Code) Assessment Notes Treatment Notes Treatment Clinical Notes Section Notes 06/13/2024 Inconclusive mammogram (ICD-10 - R92.2) Plan Of Treatment Pending Test Test Name Order Date Screening Bilateral Breast Ultrasound Next Appt Details Provider Name:JONATHAN Myers, 06/17/2025 08:30:00 AM, [address] [place] [address], [address], [place], [address], Progress Notes * MARLENA THOMASB:1965 ( 58 yo F)Acc No.[id number]:06/13/2024 Patient:?WILLIAM REMBERTO :1965???Age:58 Y???Sex:Female Address:[address] [place] [address] [facility] [place], [address] Subjective: * Chief Complaints: * ???New order for screen u/s * Medical History:? * Surgical History:? * Hospitalization/Major Diagno stic Procedure:? * Medications:? Objective: * Vitals:? * Physical Examination:? Assessment: * Assessment: 1.?Inconclusive mammogram - R92.2 (Primary)??? Plan: * Treatment: * Procedure Codes:? * true * Date:? Generated for Shelby nolen/Ricky/Spike on:?03/28/2025 02:46 PM EDT
--- OUTSIDE RECORDS SUMMARY | 2025-03-28 14:47 | XMS_ITS | Patient Health Record ---
Author Organization [facility] Address [address] [address] Care Team Providers Care Diesel Mechanic Apprentice Name Role Phone Olga Mckeon MD Primary Care Provider JONATHAN Peres Unavailable [phone] Allergies Allergen (clinical drug ingredient) Drug/Non Drug [...] Status Risk Notes Problem Postmenopausal atrophic vaginitis (47469485) Postmenopausal atrophic vaginitis (N95.2) Active confirmed Problem SI - Stress incontinence (90928535) Stress incontinence (female) (male) (N39.3) Active confirmed Problem Postmenopausal bleeding (40212822) Postmenopausal bleeding (N95.0) Active confirmed Problem Other specified urinary incontinence (N39.498) Active confirmed Problem COVID-19 (891604512) COVID-19 (U07.1) Active confirmed Vital Signs Temperature 96.8 degrees Fahrenheit 06/12/2024 Blood pressure diastolic 76 mm Hg 06/12/2024 Height 60 in 06/12/2024 Blood pressure systolic 122 mm Hg 06/12/2024 Weight 196 lbs 06/12/2024 BMI 38.27 kg/m2 06/12/2024 Encounters Encounter Location Date Provider Diagnosis Total [address] [address] 06/12/2024 JONATHAN HOPE Encounter for gynecological examination (general) (routine) without abnormal findings Z01.419 ; Encounter for screening mammogram for malignant neoplasm of breast Z12.31 ; Inconclusive mammogram R92.2 ; Dense breasts, unspecified R92.30 and Family history of malignant neoplasm of breast Z80.[address] [address] 06/13/2024 JONATHAN HOPE Inconclusive mammogr am R92.[address] [address] 08/09/2024 JONATHAN HOPE Inconclusive mammogr am R92.2 [...] Provider Name:JONATHAN Myers, 06/17/2025 08:30:00 AM, [address], [address], [place], [address], Insurance Providers Payer Name Payer Address Payer Phone Subscriber Number Group Number Insured Name Patient Relationship to Insured Coverage Start Date Coverage End Date [facility] [address] [place] [address] [id number] REMBERTO THOMAS Self - patient is the insured 3 Medical (General) History Medical History History ICD Code Arthritis Postmenopausal atrophic vaginitis N95.2 Other signs and symptoms in breast N64.5 9 Inconclusive mammogram R92.2 Disorder of breast, unspecified N64.9 Headache R51 Pelvic and perineal pain R10.2 Postmenopausal bleeding N95.0 COVID-19 U07.1 Surgical History Surgery Date(Month/Year) Lt Oophorectomy 2007 Abcess on buttocks [place] Teeth Oral Abcess in gums Left Foot-Fatty Tissue removal near grea t toe 05/09/23 Hospitalization History Reason Date(Month/Year) See Surgical Hx Anxiety Attack
== END 2025-03-28 14:37 | disposition home or self-care (01) ==
LOC: HO.HMCC 13:51
PROVIDERS: PCP Internal Medicine; Visit Provider Internal Medicine
DX: M17.12 Unilateral primary osteoarthritis, left knee (principal); Z00.00 Encounter for general adult medical examination without abnormal findings; E66.3 Overweight

== ENCOUNTER → 2025-03-28 13:51 | Outpatient (BNVA) | payer OTHER, SELFPAY | PROVIDERS: PCP Internal Medicine; Visit Provider Internal Medicine | DX: Z00.00 Encounter for general adult medical examination without abnormal findings (principal); M17.12 Unilateral primary osteoarthritis, left knee; E66.3 Overweight; Z68.38 Body mass index [BMI] 38.0-38.9, adult | CPT/HCPCS: 96127 ==

== ENCOUNTER 2025-03-30 07:16 | Outpatient (REF) | payer OTHER, SELFPAY ==
--- OUTSIDE RECORDS SUMMARY | 2025-03-30 07:18 | XMS_ITS ---
Author Organization [facility] Address [employer] [address] [place] [address] Care Team Providers Care Rn Cardiovascular Name Role Phone Olga Mckeon MD Primary Care Provider JONATHAN Peres Unavailable [phone] REASON FOR VISIT New Screening Breast U/S Order Encounters Encounter Location Date Provider Diagnosis [facility] [address] [address] 08/09/2024 JONATHAN HOPE Inconclusive mammogr am R92.2 [...] Provider Name:JONATHAN Myers, 06/17/2025 08:30:00 AM, [address] [facility], [address], [place], [address], Progress Notes * ROSITA THOMAS:1965 ( 58 yo F)Acc No.[id number]:08/09/2024 Patient:?WILLIAMIRISHREMBERTO :1965???Age:58 Y???Sex:Female Address:[address] [place] [address] [place], [address] Subjective: * Chief Complaints: * ???New Screening [...] true * Date:? Generated for Shelby nolen/Ricky/Marleyitting on:?03/30/2025 07:18 AM EDT
--- OUTSIDE RECORDS SUMMARY | 2025-03-30 07:18 | XMS_ITS | Clinical Summary ---
Author Organization [facility] Address [address] [place] [address] Care Team Providers Care Can Vacuum Tester Name Role Phone Unavailable Primary Care Provider [...]
--- OUTSIDE RECORDS SUMMARY | 2025-03-30 07:19 | XMS_ITS | Patient Health Record ---
Author Organization [employer] [facility] Address [address] [address] Care Team Providers Care Bariatric Program Coordinator Name Role Phone Olga Mckeon MD Primary Care Provider JONATHAN Peres Unavailable [phone] Allergies Allergen (clinical drug ingredient) Drug/Non Drug [...] Status Risk Notes Problem Postmenopausal atrophic vaginitis (78043450) Postmenopausal atrophic vaginitis (N95.2) Active confirmed Problem Stress incontinence (female) (male) (N39.3) Active confirmed Problem Postmenopausal bleeding (56440013) Postmenopausal bleeding (N95.0) Active confirmed Problem Urinary incontinence (036338660) Other specified urinary incontinence (N39.498) Active confirmed Problem COVID-19 (730790621) COVID-19 (U07.1) Active confirmed Vital Signs Temperature 96.8 degrees Fahrenheit 06/12/2024 Blood pressure diastolic 76 mm Hg 06/12/2024 Height 60 in 06/12/2024 Blood pressure systolic 122 mm Hg 06/12/2024 Weight 196 lbs 06/12/2024 BMI 38.27 kg/m2 06/12/2024 Encounters Encounter Location Date Provider Diagnosis [facility] [address] [employer] [address] [address] 06/12/2024 JONATHAN HOPE Encounter for gynecological examination (general) (routine) without abnormal findings Z01.419 ; Encounter for screening mammogram for malignant neoplasm of breast Z12.31 ; Inconclusive mammogram R92.2 ; Dense breasts, unspecified R92.30 and Family history of malignant neoplasm of breast Z80.3 [facility] [address] [address] 06/13/2024 JONATHAN HOPE Inconclusive mammogr am R92.[address] [address] 08/09/2024 JONATHAN HOPE Inconclusive mammogr am R92.2 [...] Name:JONATHAN Myers, 06/17/2025 08:30:00 AM, [address], [address], [place], [address], Insurance Providers Payer Name Payer Address Payer Phone Subscriber Number Group Number Insured Name Patient Relationship to Insured Coverage Start Date Coverage End Date [facility] [address] [place] [address] [id number] REMBERTO THOMAS Self - patient is the insured 3 Medical (General) History Medical History History ICD Code Arthritis Postmenopausal atrophic vaginitis N95.2 Other signs and symptoms in breast N64.5 9 Inconclusive mammogram R92.2 Disorder of breast, unspecified N64.9 Headache R51 Pelvic and perineal pain R10.2 Postmenopausal bleeding N95.0 COVID-19 U07.1 Surgical History Surgery Date(Month/Year) Lt Oophorectomy 2007 Abcess on buttocks [place] [facility] Oral Abcess in gums Left Foot-Fatty Tissue removal near grea t toe 05/09/23 Hospitalization History Reason Date(Month/Year) See Surgical Hx Anxiety Attack
--- OUTSIDE RECORDS SUMMARY | 2025-03-30 07:19 | XMS_ITS ---
Author Organization [facility] Address [address] [place] [address] [address] [place] [address] Care Team Providers Care Senior Center Director Name Role Phone Olga Mckeon MD Primary Care Provider JONATHAN Peres [phone] REASON FOR VISIT New order for screen u/s Encounters Encounter Location Date Provider Diagnosis [facility] [address] [place] [address] [address] [place] [address] 06/13/2024 JONATHAN HOPE Inconclusive mammogr am R92.2 Assessments Encounter Date Diagnosis (ICD Code) Assessment Notes Treatment Notes Treatment Clinical Notes Section Notes 06/13/2024 Inconclusive mammogram (ICD-10 - R92.2) Plan Of Treatment Pending Test Test Name Order Date Screening Bilateral Breast Ultrasound Next Appt Details Provider Name:JONATHAN Myers, 06/17/2025 08:30:00 AM, [address] [place] [address], [address], [place], [address], Progress Notes * MARLENA THOMASB:1965 ( 58 yo F)Acc No.[id number]:06/13/2024 Patient:?WILLIAM REMBERTO :1965???Age:58 Y???Sex:Female Address:[address] [place] [address] [facility] [place] [address] Subjective: * Chief Complaints: * ???New order for screen u/s * Medical History:? * Surgical History:? * Hospitalization/Major Diagno stic Procedure:? * Medications:? Objective: * Vitals:? * Physical Examination:? Assessment: * Assessment: 1.?Inconclusive mammogram - R92.2 (Primary)??? Plan: * Treatment: * Procedure Codes:? * true * Date:? Generated for Shelby nolen/Ricky/Spike on:?03/30/2025 07:19 AM EDT
--- OUTSIDE RECORDS SUMMARY | 2025-03-30 07:19 | XMS_ITS ---
Author Organization [employer] Address [address] [place] [address] Care Team Providers Care Stamping Die Maker Bench Name Role Phone Olga Mckeon MD Primary Care Provider JONATHAN Peres Unavailable [phone] Allergies Allergen (clinical drug ingredient) Drug/Non Drug Allergy documented on EMR Reaction Allergy Type Onset Date Status penicillin G Penicillin G Sodium Immunodeficiency Drug Allergy Active REASON FOR VISIT Annual CTO Physical Medications Medication SIG (Take, Route, Fr [...] Status W/U Status Risk Notes Problem COVID-19 (U07.1) Active confirmed Vital Signs Temperature 96.8 degrees Fahrenheit 06/12/20 24 Blood pressure systolic 122 mm Hg 06/12/20 24 Blood pressure diastolic 76 mm Hg 024 Height 60 in 06/12/2024 Weight 196 lbs 06/12/2024 BMI 38.27 kg/m2 06/12/2024 Encounters Encounter Location Date Provider Diagnosis [address] [place] [address] 06/12/2024 JONATHAN HOPE Encounter for gynecological examination [...] Follow Up: 1 Year, Reason: Y early Contact Lens Lathe Operator Exam Provider Name:JONATHAN MILLER Louis, 06/17/2025 08:30:00 AM, [address], [address], [place], [address], Progress Notes * SG THOMASADOB:1965 ( 58 yo F)Acc No.[id number]:06/12/2024 PROGRESS NOTES Patient:?ADILIA THOMAS Provider:?JONATHAN HOPE MD :1965???Age:58 Y???Sex:Female D ate:06/12/2024 Address:[address] [place], [place] [id number] Pcp:Olga Mckeon MD Subjective: * Chief Complaints: * ???Annual CTO Physical * HPI: ???Constitutional:?Adilia is a 58yo G0 who 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 She has been in state of good health since her last exam. She has the following concerns: none She had a suprise libertarian to celebrate her 58th. She has received the [employer] Covid-19 vaccine. Relationship status: single. She is [...] x 3-4/month by stretching, walking and a [employer] video. * ROS:?Annual Contact Lens Lathe Operator Exam ROS:?Bowel habit changes?denies.?Bladder symptoms?denies.?Vaginal discharge, unusual?denies.?Vaginal itch or odor?denies.?weight or appetite changes?denies.?Chest pains, SOB?denies.?depression?denies.?Breast:?Denies?Breast lump.?Denies?Nipple discharge.?Hematology:?Denies?Swollen glands.?Skin:?Patient denies?changing moles.?Psychiatric:?Denies?Anxiety.? * Medical History:? * Contact Lens Lathe Operator History:?/ Para?0/0.?Sexual activity?not currently sexually active.?Last Pap Smear:?06/14/22 NIL, NEG HPV, 11/07/17 NIL, NEG HRHPV, 05/2015.?Mammogram:?12/10/23 50-75% density, 10/20/21 - 50-75% density, Right Breast Ultrasound, 06/21/20 50-75% density, 11/23/18 Diagnostic 50-75% density, Needs 6 month follow up.02/2015.?LMP and menses?menopause.?Menopause: ?Began at age: ?49 ???Colonoscopy?07/01/222012.? * OB History:?Total pregnancies?0.? * Surgical History:?Lt Oophore ctomy 2008Abcess on buttocks [place] Teeth Oral Abcess in gums Left Foot-Fatty [...] ?Natural support system: yes. 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 ?Pets: none. ?Sexual abuse: no. ?Sexually active: [...] no acute distress, well developed, well nourished, communications field technician present in room.?HEAD:?normocephalic, atraumatic.?NECK/THYROID:?neck supple, full [...] muscle mass and strength. 'Sarco' is the Occitan word referring to flesh, and 'penia' means [...] * Follow Up:?1 Year (Reason: Y early Contact Lens Lathe Operator Exam) * Images: Billing Information: * Visit Code:? 40399 Preventive Care Est Pt. Age 40-64. * Procedure Codes:? 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 She has been in state of good health since her last exam. She has the following concerns: none She had a suprise libertarian to celebrate her 58th. She has received [...] General Examination GENERAL APPEARANCE: in no ac angelita distress, well developed, well nourished, communications field technician present in room HEAD: normocephalic, atrau [...]
[2025-03-30 11:36] LABS: MANUAL DIFF FLAG NO
[2025-03-30 11:49] LABS: Eosinophils Absolute Auto 0.1 X10*3/uL (0.0-0.4); Eosinophils Percent Auto 2.6 % (0-4); Hemoglobin 14.3 g/dl (12.0-16.0); Imm Gran Abs Auto 0.01 X10*3/uL (0.00-0.03); Imm Gran Pct Auto 0.3 % (0.0-0.4); Mean Corpuscular HGB Conc 32.5 g/dl (31.0-35.0); Mean Corpuscular Volume 95.2 fL (80.0-98.0); Mean Platelet Volume 11.3 fL (9.4-12.3); Monocytes Absolute Auto 0.4 X10*3/uL (0.1-1.2); Monocytes Percent Auto 11.4 % (2-11); Neutrophils Absolute Auto 1.6 x10*3/uL (2.0-8.3); Neutrophils Percent Auto 52.7 % (45-73); Platelet Count 210 X10*3/uL (160-400); Red Blood Count 4.62 X10*6/uL (4.20-5.50); Red Cell Distribution Width 13.2 % (11.0-16.0); White Blood Count 3.1 X10*3/uL (4.8-10.8)
[2025-03-30 11:55] LABS: Estimated Average Glucose 103 mg/dL; Hemoglobin A1C 124.4187 umol/L; Hemoglobin A1c % 5.2 % (<6.0); Total Hemoglobin (HGBA1C) 3684.7723 umol/L
[2025-03-30 12:15] LABS: Alanine Aminotransferase 22 U/L (0-31); Alkaline Phosphatase 83 U/L (39-117); Anion Gap 10 (12-20); Aspartate Amino Transferase 32 U/L (5-31); Bilirubin Total 0.5 mg/dL (0.0-1.0); Blood Urea Nitrogen 17 mg/dL (9-16); Calcium 9.1 mg/dL (8.4-10.2); Carbon Dioxide 27 mmol/L (22-29); Chloride 109 mmol/L (96-108); Cholesterol 182 mg/dL (<200); Estimated Glomerular Filt Rate > 60; Glucose Fasting 98 mg/dL (60-99); HDL Cholesterol 73 mg/dL (>40); LDL Cholesterol Calculated 99 mg/dL (<100); Potassium 4.2 mmol/L (3.3-5.1); Sodium 142 mmol/L (135-145); Total Protein 6.8 g/dL (6.5-8.0); Triglycerides 53 mg/dL (<150)
[2025-03-30 12:18] LABS: TSH reflex Free T4 1.41 uIU/mL (0.32-4.0); Vitamin D 25-OH Total 27.2 ng/mL (>30)
== END 2025-03-30 07:17 | disposition home or self-care (01) ==
LOC: HO.HMGCLDS 07:16
PROVIDERS: PCP Internal Medicine; Visit Provider Internal Medicine
DX: Z00.00 Encounter for general adult medical examination without abnormal findings (principal); Z13.1 Encounter for screening for diabetes mellitus; Z13.6 Encounter for screening for cardiovascular disorders
CPT/HCPCS: 36415; 80053; 80061; 82306; 83036; 84443; 85025

== ENCOUNTER 2025-05-22 13:57 | Outpatient (AMB) | payer OTHER, SELFPAY ==
[2025-05-22 14:00] VITALS: BP 138/70; PULSE 79; TEMP 37; O2SAT 97; BMI 39.1
--- NOTE | 2025-05-22 14:00 | AM.OFFWIN_ITS ---
Intake Vital Signs 05/22/25 14:00 Height 5 ft Weight 200 lb BMI 39.1 BP 138/70 Blood Pressure Location Rt brachial Position Sitting Pulse 79 Pulse Source Pulse Oximeter Temp 98.6 F Temp Source Oral Pulse Oximetry (%) 97 Oxygen Delivery Method Room Air Intake Visit Reasons: EP Sore Throat, ear pain, sinus pressure Intake Note: c/o sore/scratchy throat, right ear pain, sinus pressure/congestion, headache on/off for 4 days Patient Tobacco Use Status: Never used Tobacco Allergies Penicillins (PENICILLINS) Allergy (Unknown, Verified 05/22/25 14:00) Rash Do you need a note to return to daycare/school/sports/work: No HPI HPI Comments History of Present Illness Details History - The patient is a 59-year-old female pr esenting with right-sided ear pain and congestion. - The patient reports the onset of a scr atchy throat on Tuesday, followed by right-sided ear pain and pressure starting last night. - The patient reports head pressure and a sore throat. - She has been taking Tylenol and taking OTC medicines with no relief. - The patient denies any green discharge or productive cough. - No chest pain, shortness of breath, or significant gastrointestinal symptoms were reported, except for a single episode of diarrhea. - She denies fever, chills, sick contact s, or smoking. Physical Exam General: Cooperative, healthy appearing, comfortable and no acute distress Orientation/consciousness: Patient oriented x3 Head: Normal to inspection Ears: Hearing grossly normal bilaterally, external ears normal and TM normal on the left. Erythema noted in the right ear canal and TM. TM is bulging on the right, no discharge or drainage noted. Nose: Normal external nose present, normal nares present, and no nasal discharge present. Face and sinus: Sinuses nontender to palpation. Mouth: Normal oral and palatal mucosa present and moist mucous membranes noted. Throat: Tonsils normal. Uvula is midline. Posterior oropharynx with erythema and no exudates. Eyes: Appearance normal, both eyes and all related structures Neck: Normal visual inspection, full ROM. No lymphadenopathy noted. Respiratory: Clear to auscultation bilaterally. Normal respiratory effort, able to speak in complete sentences. No respiratory distress, not tachypneic, no tripod positioning and no use of accessory muscles. Cardiovascular: Regular rate and rhythm. Normal S1 and S2 Skin: No rashes or lesions noted Patient was informed and verbally consented to the use of an ambient scribe for clinic note documentation during this visit [facility] Medical History (Updated 03/28/25 @ 14:26 by Olga Mckeon MD) Left ankle pain Overweight Annual physical exam Osteoarthritis, knee Surgical History (Updated 03/28/25 @ 14:02 by REED Hurley) Hx of foot surgery Hx of colonoscopy Family History Father Hypertension Diabetes Throat cancer Mother Diabetes Breast cancer Brother Substance use disorder Social History Housing: House Alcohol intake: never Patient Tobacco Use Status: Never used Tobacco e-Cigarette/Vaping Use: Never Used service: No Current occupational status: employed Cognitive needs: No Hearing needs: No Vision needs: Yes Review of Systems Const All systems reviewed & are unremarkable except as noted in HPI and below Physical Exam Vital Signs: Last Vital Signs Temp 98.6 F 05/22/25 14:00 Pulse 79 05/22/25 14:00 BP 138/70 05/22/25 14:00 Pulse Ox 97 05/22/25 14:00 Oxygen Delivery Method Room Air 05/22/25 14:00 BMI result Body Mass Index 39.1 Assessment & Plan Assessment & Plan (1) Otitis media: Code(s): H66.90 - Otitis media, unspecified, unspecified ear Qualifiers: Otitis media type: other nonsuppurative Chronicity: acute Laterality: right Recurrence: non-recurrent Qualified Code(s): H65.191 - Other acute nonsuppurative otitis media, right ear Plan Most likely OM vs OE vs URI vs allergic rhinitis vs sinusitis Plan - Initiate antibiotic therapy for the treatment of acute otitis media. - Recommend the use of decongestants and antihistamines to alleviate symptoms. - Advise the use of [id number]-tdl-[id number] analgesics such as Tylenol or Motrin for pain management. - Diet as tolerated. - Follow up with PCP. Medications: New cefdinir 300 mg PO q12h 20 caps 0RF 10 days cetirizine-pseudoephedrine 5-120 mg ER 1 tab PO BID 14 tabs 0RF 7 days Coding Level of Care Code Est Pt Level 3 (79715) Diagnoses Other non-recurrent acute nonsuppurative otitis media of right ear H65.191 Otitis media type: other nonsuppurative Chronicity: acute Laterality: right Recurrence: non-recurrent
--- OUTSIDE RECORDS SUMMARY | 2025-05-22 14:31 | XMS_ITS | Clinical Summary ---
Author Organization [facility] Address [address] [place] [address] Care Team Providers Care Job Printer Apprentice Name Role Phone Unavailable Primary Care Provider [...]
--- OUTSIDE RECORDS SUMMARY | 2025-05-22 14:32 | XMS_ITS | Patient Health Record ---
Author Organization [facility] Address [address] [address] Care Team Providers Care Railcar Mechanic Name Role Phone Olga Mckeon MD Primary Care Provider JONATHAN Peres Unavailable [phone] Allergies Allergen (clinical drug ingredient) Drug/Non Drug [...] Once a day Active Meloxicam 15 MG Oral; Duration: 14 Days Active Vitamin D 1 tablet [...] Status Risk Notes Problem Postmenopausal atrophic vaginitis (84211438) Postmenopausal atrophic vaginitis (N95.2) Active confirmed Problem SI - Stress incontinence (73961622) Stress incontinence (female) (male) (N39.3) Active confirmed Problem Postmenopausal bleeding (26661598) Postmenopausal bleeding (N95.0) Active confirmed Problem Urinary incontinence (860902963) Other specified urinary incontinence (N39.498) Active confirmed Problem COVID-19 (610010814) COVID-19 (U07.1) Active confirmed Vital Signs Temperature 96.8 degrees Fahrenheit 06/12/2024 Blood pressure diastolic 76 mm Hg 06/12/2024 Height 60 in 06/12/2024 Blood pressure systolic 122 mm Hg 06/12/2024 Weight 196 lbs 06/12/2024 BMI 38.27 kg/m2 06/12/2024 Encounters Encounter Location Date Provider Diagnosis [place] [address] [place] [address] 06/12/2024 JONATHAN HOPE Encounter for gynecological examination (general) (routine) without abnormal findings Z01.419 ; Encounter for screening mammogram for malignant neoplasm of breast Z12.31 ; Inconclusive mammogram R92.2 ; Dense breasts, unspecified R92.30 and Family history of malignant neoplasm of breast Z80.3 [facility] [place] [address] [place] [address] 06/13/2024 JONATHAN HOPE Inconclusive mammogr am R92.[address] [employer] [address] [address] 08/09/2024 JONATHAN HOPE Inconclusive mammogr am R92.2 [...] Provider Name:JONATHAN Myers, 06/17/2025 08:30:00 AM, [address] [facility], [address], [place], [address], Insurance Providers Payer Name Payer Address Payer Phone Subscriber Number Group Number Insured Name Patient Relationship to Insured Coverage Start Date Coverage End Date [facility] [address] [place] [address] [id number] REMBERTO THOMAS Self - patient is the insured 3 Medical (General) History Medical History History ICD Code Arthritis Postmenopausal atrophic vaginitis N95.2 Other signs and symptoms in breast N64.5 9 Inconclusive mammogram R92.2 Disorder of breast, unspecified N64.9 Headache R51 Pelvic and perineal pain R10.2 Postmenopausal bleeding N95.0 COVID-19 U07.1 Surgical History Surgery Date(Month/Year) Lt Oophorectomy 2007 Abcess on buttocks [place] Teeth Oral Abcess in gums Left Foot-Fatty Tissue removal near grea t toe 05/09/23 Hospitalization History Reason Date(Month/Year) See Surgical Hx Anxiety Attack
== END 2025-05-22 14:35 | disposition home or self-care (01) ==
PROVIDERS: PCP Internal Medicine; Visit Provider Physician Assistant Medical
DX: H65.191 Other acute nonsuppurative otitis media, right ear (principal)

== ENCOUNTER 2025-06-20 11:21 | Outpatient (AMB) | payer OTHER, SELFPAY ==
--- OUTSIDE RECORDS SUMMARY | 2025-06-17 04:30 | XMS_ITS ---
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 Physical Encounters Encounter Location Date Provider Diagnosis [facility] [address] [place] [phone] 06/17/2025 JONATHAN HOPE Encounter for gynecological examination [...] Follow Up: 1 Year, Reason: Y early Voice Systems Engineer Exam Provider Name:JONATHANLisa Myers, 08/12/2025 08:00:00 AM, [address], [address], [place], [address], Progress Notes * MARLENA THOMASB:1965 ( 59 yo F)Acc No.[id number]:06/17/2025 PROGRESS NOTES Patient: REMBERTO AZAR Provider: Maci HOPE MD :1965 A ge:59 Y S ex:Female Date:06/17/2025 Address:[address] [place], [place] [id number] Pcp:Olga Mckeon MD Subjective: * Chief Complaints: * 1 . Annual MANAGER DISASTER RECOVERY Physical. 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 She has been in state of [...] care was transferred to the specialists at [facility]. Her appointment is [...] but there is no report in the [facility] system. The patient does *intermittently exercise. She exercises x 3-4/month by stretching, walking and a YouTube video. * ROS: A nnual Voice Systems Engineer Exam ROS: Bowel habit changes d enies. [...] no acute distress, well developed, well nourished, radio disc jockey present in room. HEAD: n ormocephalic, atraumatic. [...] * Follow Up: 1 Year (Reason: Yearly Voice Systems Engineer Exam) * Images: Billing Information: * Visit Code: [id number] Preventive Care Est Pt. Age 40-64. 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 She has been in state of [...] care was transferred to the specialists at [facility]. Her appointment is [...] but there is no report in the [facility] system. The patient does *intermittently exercise. She exercises x 3-4/month by stretching, walking and a YouTube video. Examination Category Sub-Category Detail Notes Category Not es General Examination GENERAL APPEARANCE: in no ac pilot point distress, well developed, well nourished, radio disc jockey present in room HEAD: normocephalic, atrau matic [...]
--- NOTE | 2025-06-20 10:38 | MHC.OFFVIS ---
Intake Visit Reasons: Colonoscopy screening Allergies Penicillins (PENICILLINS) Allergy (Unknown, Verified 05/22/25 14:00) Rash HPI HPI Colonoscopy screening: Details: 59-year-old female here today with her mother for a screening colonoscopy. She was seen in 2022 by Gabby Medina but because of family health issues she had to cancel her colonoscopy. She is here today to reestablish care and proceed forward with her screening. PMX Obesity Osteoarthritis of the knees Vertigo Diarrhea GERD Family history of colon polyps-mother * SURGICAL HISTORY Colonoscopy-age 48- study Foot surgery * ALLERGIES Penicillin * [facility] Laboratory Tests 03/30/25 07:45 WBC 3.1 L Hgb 14.3 Hct 44.0 Plt Count 210 Estimated GFR > 60 Total Bilirubin 0.5 AST 32 H ALT 22 Alkaline Phosphatase 83 TSH 1.41 TODAY'S VISIT She is here today with her mother who also is due for colonoscopy. Her mother has a history of tubular adenoma. The patient had a colonoscopy at age 48 that was negative. She denies any bowel or upper GI problems her GERD is well controlled, she had diarrhea after COVID but this is now controlled. She denies any cardiac or respiratory problems. There are no prior problems with anesthesia or sedation. There are no infectious disease problems. Her mother had a tubular adenoma there maybe a family history of colon cancer but her mother has memory issues and we are not certain who may have had this. [facility] Medical History (Updated 06/20/25 @ 09:49 by APARNA Babb) Left ankle pain Overweight Annual physical exam Osteoarthritis, knee Surgical History (Updated 03/28/25 @ 14:02 by REED Hurley) Hx of foot surgery Hx of colonoscopy Family History Father Hypertension Diabetes Throat cancer Mother Diabetes Breast cancer Brother Substance use disorder Social History Housing: House Alcohol intake: never Patient Tobacco Use Status: Never used Tobacco e-Cigarette/Vaping Use: Never Used service: No Current occupational status: employed Cognitive needs: No Hearing needs: No Vision needs: Yes Review of Systems Const Denies fatigue, Denies fever(s), Denies night sweats, Denies poor appetite and Denies weight loss ENT Reports Normal hearing present, Denies dental pain, Denies dysphagia, Denies hearing loss, Denies mouth pain, Denies odynophagia, Denies throat swelling, Denies tongue swelling and Reports other (Dentition adequate) Card Reports no additional complaints Resp Reports no additional complaints GI Details: Denies abdominal pain, Denies melena, Denies bloating, Denies hematochezia, Denies constipation, Denies GI cramping, Denies dysphagia, Denies excessive flatus, Denies early satiety, Reports heartburn, Denies diarrhea, Denies nausea, Denies odynophagia, Denies vomiting and Denies hematemesis Musc Reports myalgias, Reports arthralgias and Reports joint swelling Skin/Breast Denies pruritus, Denies lesions, Denies rash and Denies jaundice Neuro Reports Normal hearing present and Denies Abnormal speech present Endo Denies fatigue Aller/Immun Denies throat swelling and Denies tongue swelling Physical Exam Const General: cooperative, no acute distress, well developed and well groomed Nutritional Appearance: well nourished and obese Orientation/consciousness: oriented to person, oriented to place and oriented to time Limitations: No language barrier HEENT Head: Yes normocephalic and Yes atraumatic Eyes General: appearance normal, both eyes and all related structures Pupils: Equal, round and reactive pupils present Neck Neck: Yes normal visual inspection and Yes no lymphadenopathy Thyroid: Thyroid normal Resp Effort & Inspection: normal respiratory effort and able to speak in complete sentences Auscultation: clear to auscultation bilaterally Cardio Rate: regular rate Rhythm: regular rhythm Heart sounds: Normal, physiologic split S2 sound present Peripheral pulses: radial pulses present and posterior tibial pulses present GI Inspection: No distended, Yes Abdominal panniculus present and Yes obesity Palpation (GI): Soft to palpation, nontender, no guarding, not rigid and No hepatosplenomegaly present Percussion: Yes normal to percussion Auscultation: normal bowel sounds Rectal Exam - Female: deferred Abdomen image:  1. Surgical scars 2. Skin General skin exam: no rashes or lesions noted, turgor normal, skin not dry, no jaundice, No spider nevi and no striae Rashes: no rashes Nails: normal Neuro General: oriented to person, oriented to place and oriented to time Cranial nerves: Yes Equal, round and reactive pupils present and Yes Normal hearing present Speech: No Abnormal speech present Extrem General: Yes normal to inspection, No clubbing, No cyanosis and No edema Psych Appearance: grossly normal and well kempt Mental Status: mental status grossly normal Speech and movement: Normal speech and movement present Affect: normal affect Attitude: cooperative Thought process: Normal thought process present and not confabulating Thought content: Normal thought content present Insight: Good insight present (Psych) Judgement: Good judgement present (Psych) Results Reviewed Results Reviewed: Laboratory Tests 03/30/25 07:45 WBC 3.1 L Hgb 14.3 Hct 44.0 Plt Count 210 Estimated GFR > 60 Total Bilirubin 0.5 AST 32 H ALT 22 Alkaline Phosphatase 83 TSH 1.41 Assessment & Plan Assessment & Plan (1) Pre-op examination: Code(s): Z01.818 - Encounter for other preprocedural examination Category: Medical Plan She is here today with her mother who also is due for colonoscopy. Her mother has a history of tubular adenoma. The patient had a colonoscopy at age 48 that was negative. She denies any bowel or upper GI problems her GERD is well controlled, she had diarrhea after COVID but this is now controlled. She denies any cardiac or respiratory problems. There are no prior problems with anesthesia or sedation. There are no infectious disease problems. Her mother had a tubular adenoma there maybe a family history of colon cancer but her mother has memory issues and we are not certain who may have had this. Coding Level of Care Code Est Pt Level 4 (60505) Diagnoses Pre-op examination Z01.818 Time Spent (min) 32
--- OUTSIDE RECORDS SUMMARY | 2025-06-20 12:10 | XMS_ITS | Clinical Summary ---
Author Organization [facility] Address [address] [place] [address] Care Team Providers Care Ssrs Developer Name Role Phone Unavailable Primary Care Provider [...]
== END 2025-06-20 11:26 | disposition home or self-care (01) ==
LOC: HO.HGI 11:21
PROVIDERS: PCP Internal Medicine; Visit Provider Nurse Practitioner
DX: Z01.818 Encounter for other preprocedural examination (principal); Z12.11 Encounter for screening for malignant neoplasm of colon
CPT/HCPCS: 99214

== ENCOUNTER 2025-08-25 12:00 | Emergency (ER) | payer OTHER, SELFPAY ==
--- OUTSIDE RECORDS SUMMARY | 2025-06-17 04:30 | XMS_ITS ---
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 MANAGER Physical Encounters Encounter Location Date Provider Diagnosis [facility] [address] [place] [phone] 06/17/2025 JONATHAN HOPE Encounter for gynecological examination [...] Follow Up: 1 Year, Reason: Y early Manager Lab Exam Provider Name:JONATHANLisa Myers, 08/18/2026 08:00:00 AM, [address], [address], [place], [address], Progress Notes * MARLENA THOMASB:1965 ( 59 yo F)Acc No.[id number]:06/17/2025 PROGRESS NOTES Patient: REMBERTO AZAR Provider: Maci HOPE MD :1965 A ge:59 Y S ex:Female Date:06/17/2025 Address:[address] [place], [place] [id number] Pcp:Olga Mckeon MD Subjective: * Chief Complaints: * 1 . 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 She has been in state of [...] care was transferred to the specialists at [facility]. Her appointment is scheduled [...] but there is no report in the [facility] system. The patient does *intermittently exercise. She exercises x 3-4/month by stretching, walking and a YouTube video. * ROS: A nnual Manager Lab Exam ROS: Bowel habit changes d enies. [...] no acute distress, well developed, well nourished, varitypist present in room. HEAD: n ormocephalic, atraumatic. [...] * Follow Up: 1 Year (Reason: Yearly Manager Lab Exam) * Images: Billing Information: * Visit Code: 07442 Preventive Care Est Pt. Age 40-64. 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 She has been in state of [...] care was transferred to the specialists at [facility]. Her appointment is scheduled [...] but there is no report in the [facility] system. The patient does *intermittently exercise. She exercises x 3-4/month by stretching, walking and a YouTube video. Examination Category Sub-Category Detail Notes Category Not es General Examination GENERAL APPEARANCE: in no ac angelita distress, well developed, well nourished, varitypist present in room HEAD: normocephalic, atrau matic [...]
--- OUTSIDE RECORDS SUMMARY | 2025-07-16 09:40 | XMS_ITS ---
Author Organization [facility] Address [address] [place] [phone] Care Team Providers Care Linen Aide Name Role Phone Linda RUFF, Olga Primary Care Provider Vinh Brown [phone] REASON FOR VISIT Patient presents today for a COLON SCREENING Encounters Encounter Location Date Provider Diagnosis [facility] [address] [place] [phone] 07/16/2025 Vinh Rodríguez Plan Of Treatment No Information Progress Notes * MARLENA THOMASB:1965 ( 59 yo F)Acc No.[id number]:07/16/2025 Progress Notes Patient: REMBERTO AZAR Provider: Nalini Rodríguez MD :1965 A ge:59 Y S ex:Female Date:07/16/2025 Address:[address] [place] [address] [address] [id number] Pcp:Olga Mckeon MD Subjective: * Chief Complaints: [...] 0 07/16/2025 Generated for Shelby nolen/Ricky/Marleyitting on: 02:59 PM EDT
--- NOTE | ~2025-08-25 | XR_ITS ---
CLINICAL HISTORY: back pain Radiographs of the lumbar spine, 3 views Comparison: None available Findings: 4 mm anterolisthesis of L4 on L5, degenerative. No fracture. The vertebral body heights are preserved. There is mild to moderate multilevel intervertebral disc space narrowing with mild endplate osteophytosis. Moderate lower lumbar facet hypertrophy. The soft tissues are normal. Impression: No acute findings. Pgnz-df-hieeoixp degenerative change. Grade 1 anterolisthesis of L4 on L5, degenerative. This document has been electronically signed by: Radha Fleming MD on 08/25/2025 15:23:26
[2025-08-25 12:06] VITALS: BP 122/59; PULSE 83; RESP 18; TEMP 36.3; O2SAT 96; BMI 39.8
--- NOTE | 2025-08-25 12:12 | ED_ITS ---
HPI - General Adult General Chief complaint: Back Pain/Injury Stated complaint: severe lower back pain Time Seen by Provider: 08/25/25 14:24 Source: patient Mode of arrival: ambulatory Limitations: no limitations History of Present Illness ED Provider: Linda Vanessa PA-C HPI narrative: Patient seeking medical attention today for evaluation of low back pain that is been radiating down her back leg since yesterday. She states that she is around her grandchild and has been lifting them up. She denies any falls or trauma. She felt that send she went to go leaned over to cotton picker operator one of their toys and when she leaned up she felt a sharp pain in her back. Patient seeking medical attention today for evaluation of low back pain that is been radiating down her back leg since yesterday. She states that she is around her grandchild and has been lifting them up. She denies any falls or trauma. She felt that send she went to go leaned over to cotton picker operator one of their toys and when she leaned up she felt a part pain in her back. Related Data Home Medications ?Medication ?Instructions ?Recorded ?Confirmed djxgurlcaxac-Rs-noap-minerals 18 tab PO 08/10/2209/03 mg-0.4 mg tablet omega-3 fatty acids 1,000 mg 1,000 mg PO DAILY 3 09/03/25 capsule calcium carb, citrate, malate mg PO 05/22/25 09/03/25 cholecalciferol (vitamin D3) 25 25 mcg PO DAILY 09/03/25 mcg (1,000 unit) capsule Previous Rx's ?Medication ?Instructions ?Recorded compr.stocking,knee,long,large #12 ea 07/08/23 ibuprofen 800 mg tablet 800 mg PO Q8H #20 tabs 12/17 cetirizine 5 mg-pseudoephedrine ER 1 tab PO BID 7 days #14 tabs 05/22/25 120 mg tablet,extended release,12hr sodium,potassium,mag sulfates 17.5 480 ml PO .COMPLEX #354 mL 06/20/25 gram-3.13 gram-1.6 gram oral soln (Suprep Bowel Prep Kit) lidocaine 5 % topical patch 1 patch topical DAILY #30 ea 08/25/25 (Lidoderm) cyclobenzaprine 10 mg tablet 10 mg PO BEDTIME PRN musc le spasm 10/14/25 #30 tabs prednisone 10 mg tablet See Rx Instructions PO DAILY #30 09/03/25 tabs Allergies Allergy/AdvReac Type Severity Reaction Status Date / Time Penicillins (PENICILLINS) Allergy Unknown Rash Verified 09/03/25 13:52 Review of Systems Review of Systems: Yes all other systems are reviewed and are negative PMFSH Past Medical History Attestation statement: The following information was validated with the patient. Source: old records reviewed and nursing notes reviewed Medical History Left ankle pain Overweight Annual physical exam Osteoarthritis, knee Surgical History Hx of foot surgery Hx of colonoscopy Family History Family History Father Hypertension Diabetes Throat cancer Mother Diabetes Breast cancer Brother Substance use disorder Social History Social History Housing: House Alcohol intake: never Patient Tobacco Use Status: Never used Tobacco e-Cigarette/Vaping Use: Never Used service: No Current occupational status: employed Cognitive needs: No Hearing needs: No Vision needs: Yes Physical Exam ED Exam Exam: General: Appears in no acute distress, appears well-nourished body habitus is obese, appears stated age. No septic or ill-appearing. Vitals were reviewed normal, and PMH/Social and Surgical hx was reviewed, including allergies and current medications. - reviewed for prior visits here. Head: Normocephalic, no abnormal lesions noted. Eyes: EOMI. ENMT: moist oral mucosa, no edematous nasal turbinates, erythema, or purulent d/c noted. No erythema, normal appearance, and intact tympanic membrane. Hearing intact. No mastoid tenderness b/l. Normal posterior pharynx and structures. Uvula is midline no trismus. Neck: trachea midline, no lymphadenopathy. No nuchal rigidity. Cardiovascular: Peripheral perfusion is normal; S1 and S2 are present, and no M/R/G is present. RRR Respiratory: no respiratory distress, lungs clear to auscultation b/l, respirations full and symmetric. No flail chest, chest wall tenderness, or crepitus was noted. Speaking in full smooth sentences. Abdomen: non-distended, nontender Extremities: Warm and appear well perfused. Moving extremities without difficulty.B/l SLR reproduces pain in low back. no midline tenderness, step-offs or deformities, right sided sciatic notch ttp, no GT tenderness b/l, no rashes, strength is 4+ throughtout, DTRs intact, compartments soft Psych: Cooperative, calm. Neuro: Alert and orientated. No obvious focal deficits. Vital Signs: Vital Signs - 24 hr 08/25/25 12:06 08/25/25 15:08 Temperature 97.3 F 97.3 F Pulse Rate 83 83 Respiratory Rate 18 18 Blood Pressure 122/59 L 122/59 L Pulse Oximetry 96 96 Oxygen Delivery Method Room Air Room Air BMI result Body Mass Index 39.8 Course Course Course Narrative: RME: 1-year-old female history of arthritis presents to ED for right-sided back pain radiating down right leg since yesterday. Patient denies any urinary/GI symptoms. Positive for lumbar spine tenderness on exam. X-ray ordered Medical Decision Making Medical Decision Making MDM Narrative: Patient presented to the emergency department today for concerns of low back pain from bend and extension yesterday. history and physical as above vitals noted This patient presents with back pain most consistent with strain and spasm with potential HNP. Differential diagnoses includes lumbago versus musculoskeletal spasm / strain versus sciatica. No back pain red flags on history or physical. Presentation not consistent with malignancy (lack of history of malignancy, lack of B symptoms), fracture (no trauma, no bony tenderness to palpation), cauda equina (no bowel or urinary incontinence/retention, no saddle anesthesia, no distal weakness), AAA, viscus perforation , pulmonary embolism, renal colic, pyelonephritis (afebrile, no CVAT, no urinary symptoms). Given the clinical picture, she had lumbar spine xray ordered from triage and was without fractures/ findings. Plan: pain control, supportive care and ortho follow up as indicated Differential Diagnosis Differential Diagnoses: The differential diagnosis associated with the presentation includes See MDM Admission/Observation Consideration of admission/observation: Escalation of care including admission/observation considered Patient would have been admitted to the hospital had her work up had any findings where hospital admission was appropriate and her clinical presentation warranted hospital admission. Independent Interpretation I performed an independent interpretation of an: Plain X-Ray Interpretation: Lumbar spine no loss of normal lordosis good disc spacing moderate amount of stool in the ascending transverse and descending colon Radiology Impression Discussion of test interpretation with radiology: I have reviewed the radiologist's reading. Tests considered The following testing was considered but not selected: Would have considered MRI of spine had there been back pain red flags/ concern for NVC or epidural abscess Prescription Management I considered prescription management with: Pain Medication Chronic Conditions Patient?s care impacted by: Other (obesity) Social Determinants Patient?s care significantly limited by Social Determinants of Health including: Other Social Determinant of Health Critical Care Time Critical Care Time Critical Care Time: No Discharge Plan Discharge Clinical Impression: Muscle spasm of back, Acute lumbar myofascial strain, Strain of lumbar region Patient Disposition: Home, Self-Care Additional Instructions: You were evaluated for lower back pain. Your symptoms are consistent with a lower back strain/spasm without a pinched nerve. Your x-rays done of your lumbar spine here which shows no significant bony abnormality. It does show you do have a moderate stool burden but no impaction or free air. BACK CARE Use Motrin/Advil (ibuprofen) 600 mg every 6 hours. Take this with food. Take this regularly for the next 3-5 days and then as needed. In addition, You can use Tylenol (acetaminophen) 650 mg every 6 hrs as needed for pain. Do not take more than 3000 mg in one day! Use intermittent heat 4 or 5 times a day, 20 minutes at a time, for a few days. You may use topical therapy such as IcyHot with Lidocaine or Aspercream with Lidocaine, both of which are available over the counter. Do not perform any heavy lifting. I have sent this as a prescription for lidocaine patches this is not covered by insurance please purchase [id number] Go immediately to the Emergency Department if you develop any increased or uncontrolled pain, numbness, tingling, or weakness of the extremities, difficulty urinating or passing stools. Please see your doctor or an orthopedist if not improving over the next 1-2 weeks. Prescriptions: New lidocaine [Lidoderm] 5 % adhesive patch,medicated 1 patch topical DAILY Qty: 30 0RF Rx Instructions: leave on most painful area for up to 12 hrs No Action sodium,potassium,mag sulfates [Suprep Bowel Prep Kit] 17.5-3.13-1.6 gram recon soln 480 ml PO .COMPLEX Qty: 354 0RF Rx Instructions: 480 mL orally; FOR COLONOSCOPY PREP fpxnoyplaowk-Sf-maif-minerals 18-0.4 mg tablet PO omega-3 fatty acids 1,000 mg capsule 1,000 mg PO DAILY (DME) compr.stocking,knee,long,large Misc See Rx Instructions .Route Qty: 12 2RF Rx Instructions: 10-20 mmHg COMPRESSION ibuprofen 800 mg tablet 800 mg PO Q8H Qty: 20 0RF cholecalciferol (vitamin D3) 25 mcg (1,000 unit) capsule 25 mcg PO DAILY calcium carb, citrate, malate 250 mg calcium capsule PO cetirizine-pseudoephedrine 5-120 mg tablet extended release 12 hr 1 tab PO BID 7 Days Qty: 14 0RF prednisone 10 mg tablet See Rx Instructions PO DAILY Qty: 30 0RF Rx Instructions: Four tablets p.o. q.d. for 3 days then 3 tablets p.o. q.d. for 3 days then 2 tablets p.o. q.d. for 3 days in 1 tablet p.o. q.d. for 3 days orally daily; cyclobenzaprine 10 mg tablet 10 mg PO BEDTIME PRN (Reason: muscle spasm) Qty: 30 0RF Referrals: [facility] – [place] [facility] [Provider Group] Stand Alone Forms: Work/School Release Interventions: ED Discharge Assessment Last Done: 08/25/25 15:08 Discharge Date/Time: 08/25/25 15:09 Print Language: Ukrainian
--- OUTSIDE RECORDS SUMMARY | 2025-08-25 15:00 | XMS_ITS | Patient Health Record ---
Author Organization [facility] Address [address] [place] [address] Care Team Providers Care Early Breastfeeding Care Specialist Name Role Phone Olga Mckeon MD Primary Care Provider Vinh Brown Unavailable [phone] Reason For Referral No Information Plan Of Treatment No Information Insurance Providers Payer Name Payer Address Payer Phone Subscriber Number Group Number Insured Name Patient Relationship to Insured Coverage Start Date Coverage End Date [employer] [address] [place] [phone] [id number] REMBERTO THOMAS Self - patient is the insured
--- OUTSIDE RECORDS SUMMARY | 2025-08-25 15:00 | XMS_ITS | Clinical Summary ---
Author Organization [facility] Address [address] [place] [address] Care Team Providers Care Pit Operator Name Role Phone Unavailable Primary Care Provider [...] COVID-19 Vaccine ( - 2023-2 5 season) 2025 RSV Vaccine 60 years and old er and Patients (1 - 1-dose 75+ series) 2038 Hepatitis B Vaccines Aged Out No long er eligible based on patient's age to complete this topic
--- OUTSIDE RECORDS SUMMARY | 2025-08-25 15:00 | XMS_ITS | Patient Health Record ---
Author Organization [facility] Address [address] [address] Care Team Providers Care Offset Pressman Name Role Phone Olga Mckeon MD Primary Care Provider JONATHAN Peres Unavailable [phone] Allergies Allergen (clinical drug ingredient) Drug/Non Drug Allergy documented on EMR Reaction Allergy Type Onset Date Status penicillin G Penicillin G Sodium Immunodeficiency Drug Allergy Active Reason For Referral No Information Medications Medication SIG (Take, Route, Fr equency, Duration) Notes Start Date End Date Status Vitamin B 12 Active Multi For Her 50+ - as directed Orally Once a day Active Calcium Active Vitamin D 1 tablet Orally Once a day Active Meloxicam 15 MG Oral; Duration: 14 Days Active Vitamin C as directed Orally Once a day Active Social History Tobacco Use: Social History [...] Status Risk Notes Problem Postmenopausal atrophic vaginitis (52843095) Postmenopausal atrophic vaginitis (N95.2) Active confirmed Problem SI - Stress incontinence (42475322) Stress incontinence (female) (male) (N39.3) Active confirmed Problem Postmenopausal bleeding (85335871) Postmenopausal bleeding (N95.0) Active confirmed Problem Urinary incontinence (772491905) Other specified urinary incontinence (N39.498) Active confirmed Problem COVID-19 (205056360) COVID-19 (U07.1) Active confirmed Vital Signs Temperature 97.8 degrees Fahrenheit 08/12/2025 Blood pressure diastolic 72 mm Hg 08/12/2025 Height 60 in 08/12/2025 Blood pressure systolic 132 mm Hg 08/12/2025 Weight 198 lbs 08/12/2025 BMI 38.67 kg/m2 08/12/2025 Encounters Encounter Location Date Provider Diagnosis [address] [place] [address] 08/12/2025 JONATHAN HOPE Encounter for gynecological examination (general) (routine) without abnormal findings Z01.419 and Encounter for screening mammogram for malignant neoplasm of breast Z12.31 Assessments Encounter Date Diagnosis (ICD Code) Assessment Notes Treatment Notes Treatment Clinical Notes Section Notes 08/12/2025 Encounter for gynecological examination (general) (routine) without [...] to keep colon screening up to date. 08/12/2025 Encounter for screening mammogram for malignant neoplasm of breast (ICD-10 - Z12.31) Plan Of Treatment Pending Test Test Name Order Date Urinalysis 11/07/2017 Ultrasound : Sono Hystergram 01/12/2019 THIN PREP,HPV,TONIE IF HPV+ (>29YR)(SCRN) 11/07/2017 BONE DENSITY 12/09/2018 Screening Bilateral Breast Ultrasound Screening Bilateral Breast Ultrasound Screening Bilateral Breast Ultrasound ULTRASOUND 12/09/2018 MM Digital Screening Mammogram 3D 2024 MM Digital Screening Mammogram 3D 2019 MM Digital Screening Mammogram 3D 2020 MM Digital Screening Mammogram 3D 2021 MM Digital Screening Mammogram 3D 2023 Next Appt Details Provider Name:JONATHAN Myers, 08/18/2026 08:00:00 AM, [address], [address], [place], [address], Insurance Providers Payer Name Payer Address Payer Phone Subscriber Number Group Number Insured Name Patient Relationship to Insured Coverage Start Date Coverage End Date [facility] [address] [place] [address] [id number] REMBERTO THOMAS Self - patient is the insured 3 Medical (General) History Medical History History ICD Code Arthritis Postmenopausal atrophic vaginitis N95.2 Other signs and symptoms in breast N64.5 9 Inconclusive mammogram R92.2 Disorder of breast, unspecified N64.9 Headache R51 Pelvic and perineal pain R10.2 Postmenopausal bleeding N95.0 COVID-19 U07.1 Surgical History Surgery Date(Month/Year) Lt Oophorectomy 2007 Abcess on buttocks O[place] Teeth Oral Abcess in gums Left Foot-Fatty Tissue removal near grea t toe 05/09/23 Hospitalization History Reason Date(Month/Year) See Surgical Hx Anxiety Attack
[2025-08-25 15:08] VITALS: BP 122/59; PULSE 83; RESP 18; TEMP 36.3; O2SAT 96
== END 2025-08-25 15:09 | disposition home or self-care (01) ==
PROVIDERS: Emergency Provider Emergency Medicine; PCP Internal Medicine
DX: S39.012A Strain of muscle, fascia and tendon of lower back, initial encounter (principal); M62.830 Muscle spasm of back; X50.9XXA Other and unspecified overexertion or strenuous movements or postures, initial encounter; Y93.89 Activity, other specified; Y92.098 Other place in other non-institutional residence as the place of occurrence of the external cause; Y99.8 Other external cause status
CPT/HCPCS: 72100; 99282; 99283

== ENCOUNTER → 2025-08-25 12:11 | Outpatient (BNV) | payer OTHER, SELFPAY | PROVIDERS: Emergency Provider Emergency Medicine; PCP Internal Medicine; Visit Provider Radiology Diagnostic Radiology | DX: M51.360 Other intervertebral disc degeneration, lumbar region with discogenic back pain only (principal) | CPT/HCPCS: 72100 ==

== ENCOUNTER 2025-09-03 13:28 | Outpatient (AMB) | payer OTHER, SELFPAY ==
--- OUTSIDE RECORDS SUMMARY | 2025-06-17 04:30 | XMS_ITS ---
Author Organization [facility] Address [address] [place] [phone] Care Team Providers Care Clam Bed Worker Name Role Phone Olga Mckeon MD Primary Care Provider JONATHAN Peres Unavailable [phone] REASON FOR VISIT Annual WIRE SPLICER Physical Encounters Encounter Location Date Provider Diagnosis [facility] [address] [place] [phone] 06/17/2025 JONATHAN HOPE Encounter for gynecological examination (general) (routine) without abnormal findings Z01.419 ; Encounter for screening mammogram for malignant neoplasm of breast Z12.31 and Encounter for screening for infections with a predominantly sexual mode of transmission Z11.3 Assessments Encounter Date Diagnosis (ICD Code) Assessment Notes Treatment Notes Treatment Clinical Notes Section Notes 06/17/2025 Encounter for gynecological examination (general) (routine) without [...] to keep colon screening up to date. 06/17/2025 Encounter for screening mammogram for malignant neoplasm of breast (ICD-10 - Z12.31) 06/17/2025 Encounter for screening for infections with a predominantly sexual mode of transmission (ICD-10 - Z11.3) Plan Of Treatment Treatment Notes Assessment Notes [...] date. Pending Test Test Name Order Date MM Digital Screening Mammogram 3D 2024 Next Appt Details Follow Up: 1 Year, Reason: Y early Poultry Process Worker Exam Provider Name:JONATHANLisa Myers, 08/18/2026 08:00:00 AM, [address], [address], [place], [address], Progress Notes * MARLENA THOMASB:1965 ( 59 yo F)Acc No.[id number]:06/17/2025 PROGRESS NOTES Patient: REMBERTO AZAR Provider: Maci HOPE MD :1965 A ge:59 Y S ex:Female Date:06/17/2025 Address:[address] [place], [place] [id number] Pcp:Olga Mckeon MD Subjective: * Chief Complaints: * 1 . Annual WIRE SPLICER Physical. 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 She has been in state of good health since her last exam. She has the following concerns: none* She has received the Pfizer Covid-19 vaccine. Relationship status: *single. She is not sexually active since 2014. Sexual partner(s): male. She does not wish to have STI testing. She does *not report vaginal dryness. She does *rarely have hot flashes/night sweats. The patient has never had an abnormal pap smear. Her most recent pap smear was 06/14/22 - NIL, neg HR HPV. Next due for cotesting in 2026. She has not been diagnosed with breast cancer. She does have a family history of breast cancer - mother and 3 maternal cousins. Her last mammogram was 01/12/25 - ordered by her PCP. She had follow up views on 01/30/25 and a biopsy on 02/28/25. The results showed: - Atypical lobular hyperplasia (see note) - Diminutive intraductal papilloma (1-2 mm). - Multicystic papillary apocrine hyperplasia. - Columnar cell change, and focal collagenous sclerosis. - Microcalcification present in small ducts. Her care was transferred to the specialists at [facility]. Her appointment is scheduled for 10/31/25. She has heterogeneously dense breasts, and a 23.4% Tyrer Cuzick risk. She had a screening ultrasound on 12/19/24. She does *not have a family history of colon cancer. She a has had a colonoscopy. The last colonoscopy was 07/01/22. She was supposed to have a colonoscopy in December 2023, but she had a sinus infection, so it was canceled - she planned to call to reschedule, but there is no report in the [facility] system. The patient does *intermittently exercise. She exercises x 3-4/month by stretching, walking and a YouTube video. * ROS: A nnual Poultry Process Worker Exam ROS: Bowel habit changes d enies. B ladder symptoms d enies. V aginal discharge, unusual d enies. V aginal itch or odor d enies. w eight or appetite changes d enies. C hest pains, SOB d enies. d epression d enies.? B reast: Denies B reast lump. D enies N ipple discharge.? H ematology: Denies S wollen glands. S kin: Patient denies c hanging moles. P sychiatric: Denies A nxiety. * Medical History: Objective: * Vitals: * Examination: G eneral Examination: GENERAL APPEARANCE: i n no acute distress, well developed, well nourished, veterinary technologist present in room. HEAD: n ormocephalic, atraumatic. NECK/THYROID: n iris supple, full range of motion, thyroid normal. LYMPH NODES: n o axillary or supraclavicular adenopathy.? SKIN: normal, good turgor, no rashes, no suspicious lesions. BREASTS: normal, no dimpling, no discharge, no drainage, no masses palpable bilaterally, nontender. ABDOMEN: soft, non-tender, non distended without masses or hepatosplenomegay. RECTAL: normal tone, no masses palpable. BACK: no costovertebral angle tenderness. FEMALE GENITOURINARY: V ulva without lesions or masses, vagina pink without abnormal discharge, lesions or masses, cervix appears normal and is not tender to palpation, uterus is normal size, mobile, nontender and anteverted, ovaries are not palpable. NEUROLOGIC: alert and oriented, gait normal. PSYCH: alert, oriented, cognitive function intact, cooperative with exam, good eye contact, mood/affect full range, speech clear. Assessment: * Assessment: 1. E ncounter for gynecological examination (general) (routine) without abnormal findings - Z01.419 (Primary) 2 . E ncounter for screening mammogram for malignant neoplasm of breast - Z12.31 3 . E ncounter for screening for infections with a predominantly sexual mode of transmission - Z11.3 Plan: * Treatment: 2. E ncounter for screening mammogram for malignant neoplasm of breast I maging: MM Digital Screening Mammogram 3D * Follow Up: 1 Year (Reason: Yearly Poultry Process Worker Exam) * Images: Billing Information: * Visit Code: [id number] Preventive Care Est Pt. Age 40-64. 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 She has been in state of good health since her last exam. She has the following concerns: none* She has received the Pfizer Covid-19 vaccine. Relationship status: *single. She is not sexually active since 2014. Sexual partner(s): male. She does not wish to have STI testing. She does *not report vaginal dryness. She does *rarely have hot flashes/night sweats. The patient has never had an abnormal pap smear. Her most recent pap smear was 06/14/22 - NIL, neg HR HPV. Next due for cotesting in 2026. She has not been diagnosed with breast cancer. She does have a family history of breast cancer - mother and 3 maternal cousins. Her last mammogram was 01/12/25 - ordered by her PCP. She had follow up views on 01/30/25 and a biopsy on 02/28/25. The results showed: - Atypical lobular hyperplasia (see note) - Diminutive intraductal papilloma (1-2 mm). - Multicystic papillary apocrine hyperplasia. - Columnar cell change, and focal collagenous sclerosis. - Microcalcification present in small ducts. Her care was transferred to the specialists at [facility]. Her appointment is scheduled for 10/31/25. She has heterogeneously dense breasts, and a 23.4% Tyrer Cuzick risk. She had a screening ultrasound on 12/19/24. She does *not have a family history of colon cancer. She a has had a colonoscopy. The last colonoscopy was 07/01/22. She was supposed to have a colonoscopy in December 2023, but she had a sinus infection, so it was canceled - she planned to call to reschedule, but there is no report in the [facility] system. The patient does *intermittently exercise. She exercises x 3-4/month by stretching, walking and a YouTube video. Examination Category Sub-Category Detail Notes Category Not es General Examination GENERAL APPEARANCE: in no ac seldovia distress, well developed, well nourished, veterinary technologist present in room HEAD: normocephalic, atrau matic [...]
--- OUTSIDE RECORDS SUMMARY | 2025-07-16 09:40 | XMS_ITS ---
Author Organization [facility] Address [address] [place] [phone] Care Team Providers Care Datapower Consultant Name Role Phone Linda RUFF, Olga Primary Care Provider Vinh Brown [phone] REASON FOR VISIT Patient presents today for a COLON SCREENING Encounters Encounter Location Date Provider Diagnosis [facility] [address] [place] [phone] 07/16/2025 Vinh Rodríguez Plan Of Treatment No Information Progress Notes * MARLENA THOMASB:1965 ( 59 yo F)Acc No.[id number]:07/16/2025 Progress Notes Patient: REMBERTO AZAR Provider: Nalini Rodríguez MD :1965 A ge:59 Y S ex:Female Date:07/16/2025 Address:[address] [place] [address] [address] [id number] Pcp:Olga Mckeon MD Subjective: * Chief Complaints: * 1 . Patient presents today for a COLON SCREENING. * Medical History: Objective: * Vitals: Assessment: Plan: * Treatment: * * The named appointment provid er may or may not be the originator of this progress note, and it is not deemed complete until electronically signed by the appointment provider. Sign off status: Pending * Provider: Nalini Rodríguez MD Date: 0 07/16/2025 Generated for Shelby nolen/Ricky/Marleyitting on: 04:21 PM EDT
--- NOTE | 2025-09-03 13:50 | A.OFFPC_ITS ---
Vital Signs 09/03/25 13:52 Height 5 ft Weight 201 lb BMI 39.3 BP 120/78 Blood Pressure Location Rt brachial Position Sitting Respiration 18 Pulse 66 Pulse Source Pulse Oximeter Temp 97.2 F Temp Source Oral Pulse Oximetry (%) 97 Oxygen Delivery Method Room Air Intake Visit Reasons: Pinch nerve follow up/constipation Intake Note: Pt is here today for ER follow up. Pt c/o lower back pain and cramps in her R leg. Allergies Penicillins (PENICILLINS) Allergy (Unknown, Verified 09/03/25 13:52) Rash Medication List - Last Reconciled 09/03/25 by Olga Mckeon MD calcium carb, citrate, malate mg PO cetirizine-pseudoephedrine 5-120 mg ER 1 tab PO BID 7 days cholecalciferol (vitamin D3) 25 mcg PO DAILY compr.stocking,knee,long,large 10-20 mmHg COMPRESSION cyclobenzaprine 10 mg PO BEDTIME PRN ibuprofen 800 mg PO Q8H lidocaine 5% (Lidoderm) 1 patch topical DAILY xmjhjegrfbrz-Nb-yivy-minerals tabs PO omega-3 fatty acids 1,000 mg PO DAILY prednisone Four tablets p.o. q.d. for 3 days then 3 tablets p.o. q.d. for 3 days then 2 tablets p.o. q.d. for 3 days in 1 tablet p.o. q.d. for 3 days orally daily; sodium,potassium,mag sulfates 17.5-3.13-1.6 gram (Suprep Bowel Prep Kit) 480 mL orally; FOR COLONOSCOPY PREP Tobacco use date assessed: 09/03/25 Dental Screening Dental Screen Date: 03/28/25 HPI Pinch nerve follow up/constipation HPI Details Patient presents complaining of lower back pain radiating to right buttock for 14 days. Symptoms started after patient bent down to lift something from the floor. She denies weakness or numbness in extremities change in bowel or bladder function. She was seen in the ER on August 25. x-rays showed moderate degenerative changes and pt was prescribed cyclobenzaprine with tempo rary relief. [facility] Medical History (Updated 09/03/25 @ 14:12 by Olga Mckeon MD) Left ankle pain Overweight Annual physical exam Osteoarthritis, knee Surgical History (Updated 03/28/25 @ 14:02 by Delilah Segura [facility]) Hx of foot surgery Hx of colonoscopy Family History Father Hypertension Diabetes Throat cancer Mother Diabetes Breast cancer Brother Substance use disorder Social History Housing: House Alcohol intake: never Patient Tobacco Use Status: Never used Tobacco e-Cigarette/Vaping Use: Never Used service: No Current occupational status: employed Cognitive needs: No Hearing needs: No Vision needs: Yes Questionnaire PHQ-9 Over the last 2 weeks, how often have you been bothered by any of the following problems? 1. Little interest or pleasure in doing things: not at all 2. Feeling down, depressed, or hopeless: not at all 3. Trouble falling or staying asleep, or sleeping too much: several days 4. Feeling tired or having little energy: more than half the days 5. Poor appetite or overeating: not at all 6. Feeling bad about yourself - or that you are a failure or have let yourself or your family down: not at all 7. Trouble concentrating on things, such as reading the newspaper or watching television: not at all 8. Moving or speaking so slowly that other people could have noticed. Or the opposite - being so fidgety or restless that you have been moving around a lot more than usual: not at all 9. Thoughts that you would be better off or of hurting yourself in some way: not at all Total score: 3 Depression Screening Interpretation: Negative Depression Screening Done: Yes Source: Developed by Drs. Vinh Gaines, Riri Barnes, Roger Graham and colleagues, with an educational sarwat from [employer]. Thrive Questionnaire Date Thrive assessed: 03/28/25 I am a: Parent/Caregiver What is your living situation today?: I have a steady place to live Within the past 12 months, did the food you bought not last and you didn't have the money to get more?: I choose not to answer this question Within the past 12 months, did you worry whether your food would run out before you got money to buy more?: I choose not to answer this question Do you have trouble paying for medicines?: No Do you have trouble getting transportation to medical appointments?: No Do you have trouble paying your heating and electricity bill?: No Do you have trouble taking care of your child, family member or friend?: No Do you have trouble with day-to-day activities such as bathing, preparing meals, shopping, managing finances, etc.?: Yes Are you currently unemployed and looking for a job?: No Are you interested in more education?: No Please select the resources that you would like help with: None Currently or been in a relationship where the following occur: I choose not to answer THRIVE Score: 0 AUDIT C Alcohol Use Questionnaire (AUDIT-C) 2. How many drinks containing alcohol do you have on a typical day when you are drinking?: 1 or 2 3. How often do you have six or more drinks on one occasion?: Less than monthly Total Score: 1 NING-7 AMB Questionnaire NING-7 Date NING - 7 assessed: 03/28/25 Feeling nervous, anxious, or on edge: 0 = Not at all Not being able to stop or control worryin = Not at all Worrying too much about different things: 0 = Not at all Trouble relaxin = Not at all Being so restless that it is hard to sit still: 0 = Not at all Becoming easily annoyed or irritable: 0 = Not at all Feeling afraid as if something awful might happen: 0 = Not at all Total NING-7 score (0-4 normal; 5-9 mild; 10-14 moderate; 15-21 severe): 0 Source: Developed by Drs. Vinh Gaines, Riri Barnes, Roger Graham and colleagues, with an educational sarwat from [employer]. Review of Systems Const All systems reviewed & are unremarkable except as noted in HPI and below ENT Reports no additional complaints Card Reports no additional complaints Resp Reports no additional complaints GI Reports no additional complaints Reports no additional complaints Physical exam (Primary Care) Vital Signs: Last Vital Signs Temp 97.2 F 09/03/25 13:52 Pulse 66 09/03/25 13:52 Resp 18 09/03/25 13:52 BP 120/78 09/03/25 13:52 Pulse Ox 97 09/03/25 13:52 Oxygen Delivery Method Room Air 09/03/25 13:52 BMI result Body Mass Index 39.3 Tobacco/Smoking Status: Tobacco use Status Tobacco use date assessed 09/03/25 09/03/25 13:52 Patient Tobacco Use Status Never used Tobacco 09/03/25 13:50 e-Cigarette/Vaping Use Never Used 09/03/25 13:50 PHQ-9: PHQ-9 Score PHQ-9: Total score 3 09/03/25 13:59 Depression Screening Interpretation: Negative Thrive Assessment: Date of Thrive Assessment Date Thrive assessed 03/28/25 09/03/25 13:50 Currently or been in a relationship where the following occur: I choose not to answer Const General: no acute distress Eyes General: appearance normal, both eyes and all related structures Resp Effort & Inspection: normal respiratory effort Auscultation: clear to auscultation bilaterally Cardio Rhythm: regular rhythm Heart sounds: S1 normal heart sound present and S2 normal heart sound present GI Inspection: Yes normal to inspection Palpation (GI): Soft to palpation Back/Spine/Pelvis Other: Decreased range of motion lumbar spine, paraspinal tenderness in lower lumbar region right more than left, straight leg rising 30 degrees on the right, 90 degrees on the left, strength is 5/5 bilaterally Coding Level of Care Code Est Pt Level 3 (37066) Diagnoses Lumbago with sciatica, right side M54.41 Assessment & Plan Assessment & Plan (1) Lumbago with sciatica, right side: Code(s): M54.41 - Lumbago with sciatica, right side Category: Medical Plan: Prednisone taper and cyclobenzaprine q.h.s. prescribed, patient will be referred to physical therapy Orders: Orders PT Evaluation and Treatment Today M54.41 - Lumbago with sciatica, right side Medications: New prednisone Four tablets p.o. q.d. for 3 days then 3 tablets p.o. q.d. for 3 days then 2 tablets p.o. q.d. for 3 days in 1 tablet p.o. q.d. for 3 days orally daily; 30 tabs 0RF Refilled cyclobenzaprine 10 mg PO BEDTIME PRN 30 tabs 0RF muscle spasm
[2025-09-03 13:52] VITALS: BP 120/78; PULSE 66; RESP 18; TEMP 36.2; O2SAT 97; BMI 39.3
--- OUTSIDE RECORDS SUMMARY | 2025-09-03 16:22 | XMS_ITS | Patient Health Record ---
Author Organization [facility] Address [address] [place] [address] Care Team Providers Care Custodial Worker Name Role Phone Olga Mckeon MD Primary Care Provider Vinh Brown Unavailable [phone] Reason For Referral No Information Plan Of Treatment No Information Insurance Providers Payer Name Payer Address Payer Phone Subscriber Number Group Number Insured Name Patient Relationship to Insured Coverage Start Date Coverage End Date [facility] [address] [place] [phone] [id number] REMBERTO THOMAS Self - patient is the insured
--- OUTSIDE RECORDS SUMMARY | 2025-09-03 16:22 | XMS_ITS | Patient Health Record ---
Author Organization [facility] Address [address] [address] Care Team Providers Care Director Telemetry Name Role Phone Olga Mckeon MD Primary Care Provider JONATHAN Peres Unavailable [phone] Allergies Allergen (clinical drug ingredient) Drug/Non Drug [...] Status Risk Notes Problem Postmenopausal atrophic vaginitis (12112791) Postmenopausal atrophic vaginitis (N95.2) Active confirmed Problem SI - Stress incontinence (58833753) Stress incontinence (female) (male) (N39.3) Active confirmed Problem Postmenopausal bleeding (00731678) Postmenopausal bleeding (N95.0) Active confirmed Problem Urinary incontinence (811109200) Other specified urinary incontinence (N39.498) Active confirmed Problem COVID-19 (239379974) COVID-19 (U07.1) Active confirmed Vital Signs Temperature 97.8 degrees Fahrenheit 08/12/2025 Blood pressure diastolic 72 mm Hg 08/12/2025 Height 60 in 08/12/2025 Blood pressure systolic 132 mm Hg 08/12/2025 Weight 198 lbs 08/12/2025 BMI 38.67 kg/m2 08/12/2025 Encounters Encounter Location Date Provider Diagnosis [address] [place] [address] 08/12/2025 JONATHAN HOPE Encounter for gynecological examination [...] Provider Name:JONATHAN Myers, 08/18/2026 08:00:00 AM, [address], [address], [place], [address], Insurance Providers Payer Name Payer Address Payer Phone Subscriber Number Group Number Insured Name Patient Relationship to Insured Coverage Start Date Coverage End Date [facility] [address] [place] [address] [phone] [id number] REMBERTO THOMAS Self - patient is the insured 3 Medical (General) History Medical History History ICD Code Arthritis Postmenopausal atrophic vaginitis N95.2 Other signs and symptoms in breast N64.5 9 Inconclusive mammogram R92.2 Disorder of breast, unspecified N64.9 Headache R51 Pelvic and perineal pain R10.2 Postmenopausal bleeding N95.0 COVID-19 U07.1 Surgical History Surgery Date(Month/Year) Lt Oophorectomy 2007 Abcess on buttocks [place] Teeth Oral Abcess in gums Left Foot-Fatty Tissue removal near grea t toe 05/09/23 Hospitalization History Reason Date(Month/Year) See Surgical Hx Anxiety Attack
--- OUTSIDE RECORDS SUMMARY | 2025-09-03 16:22 | XMS_ITS | Clinical Summary ---
Author Organization [facility] Address [address] [place] [address] Care Team Providers Care Fire Control System Installer Name Role Phone Unavailable Primary Care Provider [...]
== END 2025-09-03 14:21 | disposition home or self-care (01) ==
LOC: HO.HMCC 13:29
PROVIDERS: PCP Internal Medicine; Visit Provider Internal Medicine
DX: M54.41 Lumbago with sciatica, right side (principal)